=== PATIENT | female | born 1950 | race Caucasian/White ===

== ENCOUNTER 2017-10-20 21:28 | Emergency (ER) | payer OTHER ==
[~2017-10-20] VITALS: Ht 154.9 cm; Wt 108.9 kg
[~2017-10-20 21:28] MED LIST: ASPI81CT95 PO; ATOR40TA PO; CHOL500021 PO; GEMF600T5 PO; LISI10TA11 PO; METF10002 PO
[2017-10-20 21:40] VITALS: BP 127/75
[2017-10-20] MEDS ORDERED: GEMF600T5 PO (21:47)
[2017-10-20] MEDS ORDERED: VITA400T14 GT (21:47)
--- NOTE | 2017-10-20 21:51 | NUR ---
URINE COLLECTED, BS DONE. LABS ORDERED. PT RETUNRED TO LOBBY WITH SON.
[2017-10-20 22:21] LABS: APPEARANCE,URINE SL CLOUDY (CLEAR); BILIRUBIN,URINE NEGATIVE (NEGATIVE); BLOOD, URINE TRACE-I (NEGATIVE); COLOR,URINE YELLOW (YELLOW); LEUKOCYTE ESTERASE ,URINE NEGATIVE (NEGATIVE); NITRITE, URINE NEGATIVE (NEGATIVE); PH,URINE 6.5 (5.0-9.0); UGLUCOSE NEGATIVE (NEGATIVE)
[2017-10-20 22:22] LABS: BASOPHILS % (AUTO) 0.6 % (0.0-2.0); EOSINOPHILS # (AUTO) 0.2 K/uL (0-0.4); EOSINOPHILS % (AUTO) 3.8 % (0.0-4.0); HEMATOCRIT 33.6 % (36-48); HEMOGLOBIN 11.2 g/dL (12.0-16.0); LYMPHOCYTES # (AUTO) 1.9 K/uL (2.5-16.5); LYMPHOCYTES % (AUTO) 30.2 % (20.5-51.1); MEAN CORPUSCULAR HEMOGLOBIN 31 pg (27-31); MEAN CORPUSCULAR HGB CONC 33 g/dL (33-37); MEAN CORPUSCULAR VOLUME 93.2 fL (80-94); MONOCYTES # (AUTO) 0.4 K/uL (0.8-1.0); MONOCYTES % (AUTO) 6.9 % (1.7-9.3); NEUTROPHILS # (AUTO) 3.6 K/uL (1.8-7.7); NEUTROPHILS % (AUTO) 58.5 % (42.2-75.2); PLATELET COUNT (AUTO) 261 K/uL (140-450); RED BLOOD CELL COUNT(AUTO) 3.61 MIL/uL (4.20-5.40); RED CELL DISTRIBUTION WIDTH 13.3 % (11.6-13.7); WHITE BLOOD COUNT (AUTO) 6.2 K/uL (4.8-10.8)
[2017-10-20 22:31] LABS: ANION GAP 12.4 (8-16); CARBON DIOXIDE 26.5 mmol/L (21-32); CREATININE 0.7 mg/dL (0.6-1.3); POTASSIUM 3.9 mmol/L (3.5-5.1)
[2017-10-20 22:37] LABS: TOTAL BILIRUBIN 0.2 mg/dL (0.0-1.0)
[2017-10-20 22:43] LABS: RBC,URINE 3-10 (FEW) /HPF (0-5); WBC,URINE 0-5 (RARE) /HPF (0-5)
--- NOTE | 2017-10-20 22:50 | NUR ---
67/F BIB SON FOR DIARRHEA X 5 DAYS. ABD SOFT, ROUND, -TENDERNESS, BS ACTIVE X4. DENIES N/V, FEVER/CHILLS, ABD PAIN. DENIES HEMATURIA/DYSURIA. PMH: HTN, HLD, DM, CVA WITH LEFT SIDE DEFICITS
--- NOTE | 2017-10-20 22:50 | NUR ---
PT WHEELCHAIR ASSISTED TO BED 7
[2017-10-20 23:48] VITALS: BP 125/68
--- NOTE | 2017-10-20 23:48 | NUR ---
Patient discharged with v/s stable. Written and verbal after care instructions given and explained. Patient alert, oriented and verbalized understanding of instructions. Wheel Chair Assisted with by caregiver. All questions addressed prior to discharge. ID band removed. Patient advised to follow up with PMD. Rx of IMMODIUM given. Patient educated on indication of medication including possible reaction and side effects. Opportunity to ask questions provided and answered.
== END 2017-10-20 23:48 | disposition home or self-care (01) ==
LOC: MED 21:28
DX: R19.7 Diarrhea, unspecified (principal); E11.9 Type 2 diabetes mellitus without complications; I10 Essential (primary) hypertension; Z79.899 Other long term (current) drug therapy; Z88.5 Allergy status to narcotic agent
CPT/HCPCS: 36415; 80053; 81001; 85025; 99284

== ENCOUNTER 2017-12-09 09:09 | Emergency (ER) | payer OTHER ==
[~2017-12-09] VITALS: Ht 167.6 cm; Wt 113.4 kg
[~2017-12-09 09:09] MED LIST changes: -ATOR40TA PO; +VITA400T14 GT
[2017-12-09 09:18] VITALS: BP 131/69
[2017-12-09] MEDS ORDERED: hydrOXYzine HCL 25 MG TAB PO ONE (09:45)
[2017-12-09] MEDS ORDERED: FAMOTIDINE 20 MG TAB PO ONE (09:45)
[2017-12-09] MEDS ORDERED: LOPERAMIDE 2 MG CAP PO ONE (09:45)
[2017-12-09 10:14] VITALS: BP 131/69
[2017-12-10] MEDS ORDERED: ATOR40TA PO (15:20)
== END 2017-12-09 10:14 | disposition home or self-care (01) ==
LOC: MED 09:09
DX: B34.9 Viral infection, unspecified (principal); K52.29 Other allergic and dietetic gastroenteritis and colitis; I10 Essential (primary) hypertension; E78.5 Hyperlipidemia, unspecified; Z86.73 Personal history of transient ischemic attack (TIA), and cerebral infarction without residual deficits; Z79.899 Other long term (current) drug therapy; Z88.5 Allergy status to narcotic agent
CPT/HCPCS: 82948; 99284

== ENCOUNTER 2017-12-10 06:03 | Inpatient (IN) | payer OTHER ==
[~2017-12-10] VITALS: Ht 157.5 cm; Wt 104.3 kg
[~2017-12-10 06:03] MED LIST changes: -METF10002 PO; +METF10004 PO
[2017-12-10 06:07] VITALS: BP 103/64
--- NOTE | 2017-12-10 06:07 | NUR ---
to bed # 6 via wheelchair
--- NOTE | 2017-12-10 06:15 | NUR ---
PT CAME IN WITH GENERALIZED WEAKNESS. PT HAS A HX OF HEMIPALEGIA. FAMILY STATED THAT THEY FEEL THAT SHE IS NOT HERSELF. FAMILY FEELS THAT SHE HAS BECOME INCREASINGLY WEAK AND SLIGHTLY DELAYED AND NOT RESPONDING SHE NORMALLY IT. FAMILY STATES THAT SHE HAS BLISTERS ALL OVER BODY. IT STARTED ON HER BUTT. PT FAMILY STATES THEY ARE BLISTER LIKE RASH. PT IS ON O2 2L . PT HAS ALLERGIES TO CODEINE. FAMILY AT BEDSIDE.; SKIN IS SLIGHTLY CLAMMY; AAOX4 WITH EVEN AND STEADY GAIT; LUNGS CLEAR BL; HR EVEN AND REGULAR; PT DENIES ANY FEVER, CP, SOB, OR COUGH AT THIS TIME; VSS; PATIENT POSITIONED FOR COMFORT; HOB ELEVATED; BEDRAILS UP X2; BED DOWN. ER MD MADE AWARE OF PT STATUS.
--- NOTE | 2017-12-10 06:33 | NUR ---
Dr. Deng evaluating patient at bedside.
--- NOTE | 2017-12-10 07:18 | NUR ---
Dr. Brantley evaluating patient at bedside.
[2017-12-10] MEDS ORDERED: NACL 0.9% 500 ML IV ONE ×2 (07:30→09:35)
--- NOTE | 2017-12-10 07:35 | NUR ---
received report at this time from lopez alejandra. pt lying on [facility] at this time w/ vss and rr even and unlabored. will continue to monitor.
--- NOTE | 2017-12-10 07:50 | NUR ---
PHLEB AT BEDSIDE AT THIS TIME.
--- NOTE | 2017-12-10 08:25 | NUR ---
PT PLACED ON BEDPAN AT THIS TIME IN AN ATTEMPT TO COLLECT URINE. ER MD PAULA AND MYSELF ABLE TO ASSESS PT BLISTERS OF THE BUTTOCKS AT THIS TIME WHICH APPEAR TO BE OPEN WOUNDS NOW. WILL CLEAN THEM WHEN PT REMOVED FROM THE BED AGUIRRE. SAFETY PRECAUTIONS IN PLACE. WILL CONTINUE TO MONITOR.
[2017-12-10 08:34] LABS: BASOPHILS % (AUTO) 1.1 % (0.0-2.0); EOSINOPHILS # (AUTO) 0.1 K/uL (0-0.4); EOSINOPHILS % (AUTO) 3.3 % (0.0-4.0); HEMATOCRIT 35.1 % (36-48); HEMOGLOBIN 11.8 g/dL (12.0-16.0); LYMPHOCYTES % (AUTO) 22.8 % (20.5-51.1); MEAN CORPUSCULAR HEMOGLOBIN 32 pg (27-31); MEAN CORPUSCULAR HGB CONC 33 g/dL (33-37); MEAN CORPUSCULAR VOLUME 94.5 fL (80-94); MONOCYTES # (AUTO) 0.4 K/uL (0.8-1.0); MONOCYTES % (AUTO) 9.7 % (1.7-9.3); NEUTROPHILS # (AUTO) 2.7 K/uL (1.8-7.7); NEUTROPHILS % (AUTO) 63.1 % (42.2-75.2); PLATELET COUNT (AUTO) 159 K/uL (140-450); RED BLOOD CELL COUNT(AUTO) 3.72 MIL/uL (4.20-5.40); RED CELL DISTRIBUTION WIDTH 14.4 % (11.6-13.7); WHITE BLOOD COUNT (AUTO) 4.3 K/uL (4.8-10.8)
[2017-12-10 08:55] LABS: ALBUMIN 2.9 g/dL (3.4-5.0); CARBON DIOXIDE 23.1 mmol/L (21-32); POTASSIUM 3.1 mmol/L (3.5-5.1)
--- NOTE | 2017-12-10 09:15 | NUR ---
PT LAYING ON HOSPITAL GURNEY AT THIS TIME. W/ VSS AND RR EVEN AND UNLABORED. SAFETY PRECAUTIONS IN PLACE, WILL CONTINUE TO MONITOR.
[2017-12-10] MEDS ORDERED: KCL 20 MEQ/WATER INJ PREMIX 100 ML IV ONE (09:35)
[2017-12-10] MEDS ORDERED: MAG SULF 2000 MG/WATER PREMIX 50 ML IV ONE (09:35)
[2017-12-10] MEDS ORDERED: ACYCLOVIR 500 MG in NACL 0.9% 100 ML IV ONE (09:55)
[2017-12-10] MEDS ORDERED: ACYCLOVIR 800 MG TAB PO SCH (09:58)
--- NOTE | 2017-12-10 10:00 | NUR ---
PT TALKING WITH HER DTR AT THIS TIME W/ VSS AND RR EVEN AND UNLABORED. SAFETY PRECAUTIONS IN PLACE. WILL CONTINUE TO MONITOR.
[2017-12-10] MEDS ORDERED: DOCUSATE SODIUM 100 MG GELCAP PO PRN (10:25)
[2017-12-10] MEDS ORDERED: ONDANSETRON 4 MG/2 ML VIAL IM/IVP PRN (10:25)
[2017-12-10] MEDS ORDERED: ZOLPIDEM 5 MG TAB PO PRN (10:25)
[2017-12-10] MEDS ORDERED: LORazepam 2 MG/ML VIAL IM/IVP PRN (10:25)
[2017-12-10 10:35] LABS: APPEARANCE,URINE CLEAR (CLEAR); BILIRUBIN,URINE NEGATIVE (NEGATIVE); BLOOD, URINE 2+ (NEGATIVE); COLOR,URINE YELLOW (YELLOW); LEUKOCYTE ESTERASE ,URINE 2+ (NEGATIVE); NITRITE, URINE NEGATIVE (NEGATIVE); UGLUCOSE NEGATIVE (NEGATIVE)
[2017-12-10 10:42] LABS: RBC,URINE 20-50 /HPF (0-5); WBC,URINE 60-80 /HPF (0-5)
--- NOTE | 2017-12-10 10:50 | NUR ---
MEDICAL STUDENTS AT THE BEDSIDE ASSESSING PT AT THIS TIME.
[2017-12-10 11:02] LABS: PROTHROMBIN TIME 11.1 secs (10.8-13.4)
[2017-12-10 11:05] LABS: BARBITURATE, URINE NEG. ng/ml (NEG <=200); BENZODIAZEPINE, URINE NEG. ng/mL (NEG <=200); CANNABINOID, URINE NEG. ng/mL (NEG <=50); COCAINE, URINE NEG. ng/mL (NEG <=300); OPIATE, URINE NEG. ng/mL (NEG <=2000); PHENCYCLIDINE SCREEN,URINE NEG. ng/mL (NEG <=25)
[2017-12-10 11:10] LABS: CHOL/HDL RATIO 2.7 (1-4.5); MAGNESIUM 1.6 mg/dL (1.8-2.4)
[2017-12-10 11:30] VITALS: BP 92/51
--- NOTE | 2017-12-10 11:30 | NUR ---
PATIENT ARRIVED ON FLOOR VIA GURNEY, PATIENT TRANSFERRED TO BED. REPORT RECEIVED FROM SOLID SURFACE FABRICATOR KIMI AT BEDSIDE FOR CONTINUITY OF CARE. PATIENT AOX4, RESPIRATIONS EVEN AND UNLABORED ON 2L O2 VIA NC. PATIENT O2 SATURATION AT 97%. PATIENT DENIES PAIN. IV SITE PATENT, INFUSION MAG RIDER. PATIENT TOLERATED IT WELL. PT DX WITH SACRAL WOUND INFECTION, PICTURE TAKEN IN ER IN CHART. LUNG SOUNDS CLEAR, ACTIVE BOWEL SOUNDS PRESENT, PATIENT HAS LEFT SIDED HEMIPARESIS. UPDATED BOARD. SAFETY PRECAUTION IN PLACE, CALL LIGHT WITHIN REACH, WILL CONTINUE TO MONITOR PATIENT.
--- NOTE | 2017-12-10 11:30 | NUR ---
Note clark in ED - 12/10/17 at 1141 by KULDEEP Patient will be admitted to care of [facility]. Admited to Tele. Will go to room 107 A. [facility] Report to STEPHANIE Yan.
--- NOTE | 2017-12-10 11:30 | NUR ---
Dicharge/disposition accidentally charted under Vesta Lopez RN, but it was done by me. Correction made, ronaldo Lopez notified of error.
--- NOTE | 2017-12-10 11:30 | NUR ---
Patient will be admitted to care of [facility]. Admited to Tele. Will go to room 107 A. Belongings list completed. Report to STEPHANIE Yan.
[2017-12-10] MEDS: NACL 0.9% 1,000 ML IV SCH (12:14)
--- NOTE | 2017-12-10 12:26 | NUR ---
KRIDER AND NS INFUSING ORDERED. PATIENT TOLERATING IT WELL. NO SIGNS OF DISTRESS OR SOB NOTED. WILL CONTINUE TO MONITOR PATIENT.
[2017-12-10] MEDS ORDERED: DEXTROSE 50% 50 ML SYR IVP PRN (13:00)
[2017-12-10] MEDS ORDERED: INSULIN LISPRO SLIDING SCALE 100 UNITS/ML VIAL SUBQ PRN (13:00)
--- NOTE | 2017-12-10 13:10 | NUR ---
DR VALDERRAMA IN TO ASSESS THE PATIENT. WILL WAIT FOR HER UPDATED ORDERS.
[2017-12-10] MEDS ORDERED: ATOR40TA PO (15:20)
[2017-12-10] MEDS ORDERED: CHOLECALCIFEROL 1.25 MG PO SCH (15:25)
[2017-12-10 16:00] VITALS: BP 118/69
--- NOTE | 2017-12-10 16:10 | NUR ---
PATIENT MOVED FROM ROOM 107A TO 118. SON AT BEDSIDE. PATIENT TOLERATED THE MOVE WELL. ALL HER BELONGINGS WERE TAKEN TO 118. WILL CONTINUE TO MONITOR PATIENT.
[2017-12-10] MEDS ORDERED: HYDRAGUARD CREAM TP PRN (16:40)
[2017-12-10] MEDS ORDERED: NYSTATIN POW 100 MU/GM 15 GM BTL TP PRN (16:40)
[2017-12-10] MEDS: BLOOD GLUCOSE MONITORING 1 DEV DEV FS SCH ×2 (17:25→20:29)
--- NOTE | 2017-12-10 17:25 | NUR ---
BLOOD SUGAR 104, NO COVERAGE NEEDED. ORDERED MEDICATIONS GIVEN. PATIENT TOLERATED IT WELL. DR. VALDERRAMA IN TO SEE THE PATIENT. PICTURE OF PERINEAL WOUND TAKEN. PATIENT NOW SITTING UP IN BED EATING DINNER, SON AT BEDSIDE. SAFETY PRECAUTION IN PLACE, CALL LIGHT WITHIN REACH, WILL CONTINUE TO MONITOR PATIENT.
[2017-12-10] MEDS ORDERED: ZINC SULF 220 MG CAP PO SCH (17:30)
[2017-12-10] MEDS: metFORMIN 500 MG TAB PO SCH (18:07)
--- NOTE | 2017-12-10 19:15 | NUR ---
REPORT GIVEN TO TOOL DESIGN CHECKER NURSE AT BEDSIDE FOR CONTINUITY OF CARE. PATIENT IN STABLE CONDITION.
--- NOTE | 2017-12-10 19:16 | NUR ---
REPORT RECEIVED FROM AM NURSE AT BEDSIDE. PT IN STABLE CONDITION. AAOX3. INTRODUCED SELF AND BOARD UPDATED. IV SITE PATENT AND INTACT. SKIN WARM, DRY, AND NOT INTACT DUE TO EXCORIATION AND RASH. PT IS HAS A MODIFIED DNR. PT IS BEDBOUND. BED LOCKED AND IN LOW POSITION. CALL QUEZADA WITHIN REACH. WILL CONTINUE TO MONITOR.
[2017-12-10 20:00] VITALS: BP 104/54
[2017-12-10] MEDS: NACL 0.9% IV SCH (20:29)
[2017-12-10] MEDS: ACYCLOVIR IV SCH (20:29)
--- NOTE | 2017-12-10 20:30 | NUR ---
ACYCLOVIR GIVEN IVPB. PT TOLERATING WELL. Addendum: 12/11/17 at 0647 by Yonny Ruiz RN BS 110. NO COVERAGE NEEDED.
[2017-12-10] MEDS ORDERED: GEMFIBROZIL 600 MG TAB PO SCH (21:00)
[2017-12-10] MEDS ORDERED: METFORMIN HCL PO SCH (21:00)
[2017-12-10] MEDS: KCL 20 MEQ/WATER INJ PREMIX 100 ML IV SCH ×2 (21:58→23:17)
--- NOTE | 2017-12-10 21:58 | NUR ---
POTASSIUM 3.1. K RIDER GIVEN 1 OUT OF 2. PT TOLERATING WELL.
--- NOTE | 2017-12-10 23:17 | NUR ---
POTASSIUM BAG 2 OUT OF 2 GIVEN. PT TOLERATED WELL.
[2017-12-11] VITALS: BP 115/54
[2017-12-11] MEDS: NYSTATIN POW 100 MU/GM 15 GM BTL TP SCH ×2 (01:00→12:57)
[2017-12-11] MEDS: HYDRAGUARD CREAM TP SCH ×2 (01:00→12:56)
--- NOTE | 2017-12-11 01:45 | NUR ---
WOUND CARE GIVEN. NYSTATIN POWDER AND ZGUARD APPLIED.
[2017-12-11 04:00] VITALS: BP_SYST 113; BP_SYST 97; BP_DIAS 41; BP_DIAS 54
[2017-12-11] MEDS: NACL 0.9% IV SCH ×3 (04:40→19:41)
[2017-12-11] MEDS: ACYCLOVIR IV SCH ×3 (04:40→19:41)
--- NOTE | 2017-12-11 04:40 | NUR ---
ACYCLOVIR IVPB GIVEN. PT TOLERATED WELL.
[2017-12-11] MEDS: BLOOD GLUCOSE MONITORING 1 DEV DEV FS SCH ×4 (05:48→20:05)
--- NOTE | 2017-12-11 05:48 | NUR ---
BS 94. NO COVERAGE NEEDED.
[2017-12-11 06:43] LABS: BASOPHILS % (AUTO) 0.8 % (0.0-2.0); EOSINOPHILS # (AUTO) 0.1 K/uL (0-0.4); EOSINOPHILS % (AUTO) 2.4 % (0.0-4.0); HEMATOCRIT 30.7 % (36-48); HEMOGLOBIN 10.2 g/dL (12.0-16.0); LYMPHOCYTES # (AUTO) 1.2 K/uL (2.5-16.5); LYMPHOCYTES % (AUTO) 28.3 % (20.5-51.1); MEAN CORPUSCULAR HEMOGLOBIN 32 pg (27-31); MEAN CORPUSCULAR HGB CONC 33 g/dL (33-37); MEAN CORPUSCULAR VOLUME 94.9 fL (80-94); MONOCYTES # (AUTO) 0.5 K/uL (0.8-1.0); MONOCYTES % (AUTO) 11.1 % (1.7-9.3); NEUTROPHILS # (AUTO) 2.5 K/uL (1.8-7.7); NEUTROPHILS % (AUTO) 57.4 % (42.2-75.2); PLATELET COUNT (AUTO) 150 K/uL (140-450); RED BLOOD CELL COUNT(AUTO) 3.24 MIL/uL (4.20-5.40); RED CELL DISTRIBUTION WIDTH 14.1 % (11.6-13.7); WHITE BLOOD COUNT (AUTO) 4.4 K/uL (4.8-10.8)
--- NOTE | 2017-12-11 07:15 | NUR ---
REPORT GIVEN TO AM NURSE AT BEDSIDE. PT IN STABLE CONDITION.
--- NOTE | 2017-12-11 07:16 | NUR ---
RECEIVED REPORT FROM THE JANITORIAL TECH NURSE AT BEDSIDE FOR CONTINUITY OF CARE. PT IS AWAKE AND ORIENTED. INTRODUCED MYSELF AND UPDATED THE BOARD. WOULD LIKE TO SPEAK TO HER DAUGHTER. CALLED HER DAUGHTER FOR HER ON PT'S PHONE. PT SPEAKS COMORAN, MUMBLES. HARD TO MAKE OUT WHAT SHE IS SAYING. PT IS BEDREST, INCONTINENT, NC AT 2L O2. SKIN-VESICLES, RASHES ON ABDOMEN AND EXTREMITIES AND SACRAL WOUND. EXTREME DRYNESS ON BFOOT. IV ON L AC 20G NS AT 60ML. V/S WITHIN NORMAL LIMITS. BP SLIGHTLY LOW 88/55, ST 114. DENIES ANY ITCHINESS OR PAIN ASSOC WITH RASH. DR ROWLEY IS ON THE CASE. WILL CONTINUE TO MONITOR PT.
[2017-12-11 08:00] VITALS: BP 88/55
[2017-12-11] MEDS ORDERED: LISINOPRIL 10 MG PO SCH (09:00)
[2017-12-11] MEDS ORDERED: ASPIRIN 1 MG PO SCH (09:00)
[2017-12-11] MEDS: LISINOPRIL 10 MG TAB PO SCH (09:00)
[2017-12-11] MEDS: LORATADINE 10 MG TAB PO SCH (09:08)
[2017-12-11] MEDS: ZINC SULF 220 MG CAP PO SCH (09:09)
[2017-12-11] MEDS: ASPIRIN 81 MG TAB.CHEW PO SCH (09:09)
[2017-12-11] MEDS: LACTOBACILLUS RHAMNOSUS GG 1 EACH CAP PO SCH (09:09)
[2017-12-11] MEDS: VITAMIN D 400 IU TAB GT SCH (09:09)
[2017-12-11] MEDS: ATORVASTATIN 20 MG TAB PO SCH (09:09)
[2017-12-11] MEDS: NACL 0.9% 1,000 ML IV SCH ×2 (09:10→19:41)
[2017-12-11] MEDS: metFORMIN 500 MG TAB PO SCH ×2 (09:10→17:54)
--- NOTE | 2017-12-11 09:15 | NUR ---
ADMINISTERED MORNING MEDS. HELD BP MED D/T DECREASE BP. PT TOLERATED WELL. WILL CONTINUE TO MONITOR PT.
[2017-12-11 10:19] LABS: ANION GAP 15.7 (8-16); CARBON DIOXIDE 21.8 mmol/L (21-32); CREATININE 0.9 mg/dL (0.6-1.3); POTASSIUM 3.5 mmol/L (3.5-5.1)
--- NOTE | 2017-12-11 10:55 | NUR ---
PATIENT HAS BEEN SCREENED AND CATEGORIZED HIGH NUTRITION RISK. PATIENT WILL BE SEEN WITHIN 1-2 DAYS OF ADMISSION. 12/11/17 12/12/[address]
[2017-12-11] MEDS: PIPER/TAZO 3.375GM/D5W PREMIX 50 ML IV SCH ×2 (11:52→17:55)
--- NOTE | 2017-12-11 11:55 | NUR ---
ADMINISTERED SCHEDULED MEDS. PT TOLERATED WELL. FAMILY AT BEDSIDE. REQUESTED UPDATES. LUNCH IS HERE BUT PT FELL ASLEEP. FAMILY WILL BE WITH PT UNTIL SHE WAKES UP FOR LUNCH. WILL CONTINUE TO MONITOR PT.
[2017-12-11 12:00] VITALS: BP 89/51
--- NOTE | 2017-12-11 13:58 | NUR ---
PT SLEEPING SOUNDLY. ACYCLOVIR IVPB STILL RUNNING. WILL CONTINUE TO MONITOR PT.
--- NOTE | 2017-12-11 15:00 | NUR ---
COCOA BEAN ROASTER CHANGING PT. HAD BM. CHANGED PT AND HAD ANOTHER BM. ALL LIQUID. PT IS NOW CLEAN AND DRY. WILL CONTINUE TO MONITOR PT.
[2017-12-11 16:00] VITALS: BP 92/58
--- NOTE | 2017-12-11 17:12 | NUR ---
SON IS VISITING. PT WAS CONFUSED ABOUT WHEN SHE GOT ADMITTED AND REGARDING DAUGHTER'S VISIT. REORIENTED PT. WILL CONTINUE TO MONITOR PT.
--- NOTE | 2017-12-11 17:56 | NUR ---
IV INFILTRATED. RESTART A NEW IV ACCESS. AFTER 3 ATTEMPTS, NEW IV ON L HAND 22G. STARTED TO ZOSYN. PT EATING DINNER. FAMILY AT BEDSIDE. WILL CONTINUE TO MONITOR PT.
--- NOTE | 2017-12-11 19:10 | NUR ---
ENDORSED PT TO THE HOME SERVICE CONSULTANT NURSE AT BEDSIDE FOR CONTINUITY OF CARE. PT IS IN STABLE CONDITION.
--- NOTE | 2017-12-11 19:15 | NUR ---
D PT IN STABLE CONDITION FROM AM NURSE. AWAKE,ALERT AND ORIENTED X4. BEDREST .WEAKNESS . ON TELE MONITOR. NO RESPIRATORY DISTRESS NOTED. WITH O22L/NC. HAS RASHES ON THE BODY .ON CONTACT ISOLATION DUE TO HERPES. FAMILY MADE AWARE OF PRECAUTIONS. IVF INFUSING WELL . BED ON LOW POSITION. FREQUENT ROUNDS NEEDED. CALL LIGHT PLACED WITHIN EASY REACH. WILL CONTINUE TO MONITOR.
[2017-12-11] MEDS ORDERED: ALBUTEROL SULFATE/IPRATROPIU 3 ML SOL IH PRN (19:30)
[2017-12-11 19:52] VITALS: BP 107/63
[2017-12-11] MEDS: ACETAMINOPHEN 325 MG TAB PO PRN (19:57)
--- NOTE | 2017-12-11 19:57 | NUR ---
PT TEMP 101.2 .COOLING MEASURES DONE AND TYLENOL 650 MG PO GIVEN. WILL CONTINUE TO MONITOR.
--- NOTE | 2017-12-11 20:05 | NUR ---
BLOOD SUGAR WAS CHECKED RESULT 118. NO INSULIN COVERAGE NEEDED.
--- NOTE | 2017-12-11 20:52 | NUR ---
XIFAXAN NEW ORDER TO START TONIGHT. NOT AVAILABLE. DR. ABBOTT MADE AWARE. WILL JUST START TOMORROW PER .
[2017-12-11] MEDS: RIFAXIMIN 550 MG TAB PO SCH (21:00)
[2017-12-11] MEDS: FAMOTIDINE 20 MG TAB PO SCH (21:02)
--- NOTE | 2017-12-11 21:02 | NUR ---
LATEST TEMP 99.9 WILL CONTINUE TO MONITOR.
[2017-12-11] MEDS ORDERED: VANCOMYCIN PER PHARMACY MC PRN (21:25)
--- NOTE | 2017-12-11 21:45 | NUR ---
DR. ROWLEY CAME AND EXAMINED PT. TRANSFERRED TO [place] [id number] FOR AIRBORNE ISOLATION DUE TO SHINGLES.
[2017-12-11] MEDS ORDERED: VANCOMYCIN 2,000 MG in NACL 0.9% 500 ML IV SCH (23:00)
[2017-12-12 00:03] VITALS: BP 104/49
[2017-12-12] MEDS ORDERED: VANCOMYCIN 1,000 MG VIAL ONE (00:09)
--- NOTE | 2017-12-12 00:17 | NUR ---
ZOSYN IV DISCONTINUED. VANCOMYCIN 2 GM IVPB X1 STARTED PER MD ORDER. WILL CONTINUE TO MONITOR WHILE INFUSING.
[2017-12-12] MEDS: HYDRAGUARD CREAM TP SCH (00:24)
[2017-12-12] MEDS: NYSTATIN POW 100 MU/GM 15 GM BTL TP SCH ×2 (00:24→14:15)
--- NOTE | 2017-12-12 02:00 | NUR ---
MADE ROUNDS. PT ASLEEP. NO S/S OF ANY DISCOMFORT NOTED. WILL CONTINUE TO MONITOR.
--- NOTE | 2017-12-12 02:08 | NUR ---
RECEIVED PT FROM DAVID BROWN PT AAOX1 ON TELE SR ON GENERALIZED RASH AND TX HERLPES DENIES ANY PAIN NOT DISTRES NOTED INITIAL ASSESSMENT DONE Addendum: 12/13/17 at 0212 by Claudine Nobles RN ;THIS ;DOCUMENTATION QWAS ON 12/12/17 AT 1938 INSTEAD 0211
[2017-12-12 03:40] VITALS: BP 96/55
[2017-12-12] MEDS: NACL 0.9% IV SCH ×3 (03:44→21:55)
[2017-12-12] MEDS: ACYCLOVIR IV SCH ×3 (03:44→21:55)
--- NOTE | 2017-12-12 04:25 | NUR ---
PERINEAL AREA/LABIA AND BUTTOCKS ARE VERY EXCORIATED DUE TO INCONTINENCE. ABLE TO TALKED TO DR. ALBA, RESIDENT MD AND MADE HER AWARE. WILL DO ORDER. .
[2017-12-12] MEDS ORDERED: Z-GUARD PASTE TP SCH ×2 (05:00→08:00)
[2017-12-12] MEDS: BLOOD GLUCOSE MONITORING 1 DEV DEV FS SCH ×4 (06:04→21:55)
--- NOTE | 2017-12-12 06:04 | NUR ---
BLOOD SUGAR WAS CHECKED RESULT 89. NO INSULIN COVERAGE.
[2017-12-12 06:18] LABS: BASOPHILS % (AUTO) 0.8 % (0.0-2.0); EOSINOPHILS # (AUTO) 0.1 K/uL (0-0.4); EOSINOPHILS % (AUTO) 2.7 % (0.0-4.0); HEMATOCRIT 29.8 % (36-48); HEMOGLOBIN 9.7 g/dL (12.0-16.0); LYMPHOCYTES # (AUTO) 1.6 K/uL (2.5-16.5); MEAN CORPUSCULAR HEMOGLOBIN 31 pg (27-31); MEAN CORPUSCULAR HGB CONC 33 g/dL (33-37); MEAN CORPUSCULAR VOLUME 95.1 fL (80-94); MONOCYTES # (AUTO) 0.6 K/uL (0.8-1.0); MONOCYTES % (AUTO) 11.2 % (1.7-9.3); NEUTROPHILS # (AUTO) 2.9 K/uL (1.8-7.7); NEUTROPHILS % (AUTO) 55.3 % (42.2-75.2); PLATELET COUNT (AUTO) 150 K/uL (140-450); RED BLOOD CELL COUNT(AUTO) 3.13 MIL/uL (4.20-5.40); RED CELL DISTRIBUTION WIDTH 13.9 % (11.6-13.7); WHITE BLOOD COUNT (AUTO) 5.2 K/uL (4.8-10.8)
[2017-12-12 06:19] LABS: FOLIC ACID 17.9 ng/mL (>3.0)
--- NOTE | 2017-12-12 06:40 | NUR ---
PT VERY SLEEPY. RECHECKED THE BLOOD SUGAR AND RESULT STILL GOOD AT 93.
--- NOTE | 2017-12-12 07:15 | NUR ---
ENDORSED PT IN STABLE CONDITION TO AM NURSE FOR CONTINUITY OF CARE.
--- NOTE | 2017-12-12 07:16 | NUR ---
RECEIVED PT FROM THE PICKLER HELPER NURSE AT BEDSIDE FOR CONTINUITY OF CARE. PT IS AWAKE AND ORIENTED. PT IS AWAKE AND ORIENTED. INTRODUCED MYSELF AND UPDATED THE BOARD. PT IS NOW ON AIRBORNE PRECAUTION D/T HERPES. V/S WITHIN NORMAL. FEVER 101.1F. DR. ROWLEY WAS HERE LAST NIGHT. D/C ZOSYN AND STARTED HER ON VANCO. IV ON L HAND 22G NS AT 60ML INFUSING AT 60ML/HR. PER PICKLER HELPER NURSE, REQUESTED ZGUARD FOR THE RASH. WILL APPLY. PT'S K AND MAG IS LOW. WILL NOTIFY .
[2017-12-12 07:27] LABS: ANION GAP 10.6 (8-16); CARBON DIOXIDE 24.4 mmol/L (21-32); CREATININE 1.1 mg/dL (0.6-1.3)
[2017-12-12 08:00] VITALS: BP_SYST 106; BP_SYST 94; BP_DIAS 55; BP_DIAS 64
[2017-12-12] MEDS: FAMOTIDINE 20 MG TAB PO SCH ×2 (08:51→21:57)
[2017-12-12] MEDS: LORATADINE 10 MG TAB PO SCH (08:52)
[2017-12-12] MEDS: VITAMIN D 400 IU TAB GT SCH (08:52)
[2017-12-12] MEDS: ASPIRIN 81 MG TAB.CHEW PO SCH (08:52)
[2017-12-12] MEDS: ATORVASTATIN 20 MG TAB PO SCH (08:52)
[2017-12-12] MEDS: ZINC SULF 220 MG CAP PO SCH (08:52)
[2017-12-12] MEDS: LISINOPRIL 10 MG TAB PO SCH (08:53)
[2017-12-12] MEDS: LACTOBACILLUS RHAMNOSUS GG 1 EACH CAP PO SCH (08:53)
[2017-12-12] MEDS: RIFAXIMIN 550 MG TAB PO SCH ×2 (08:53→21:58)
[2017-12-12] MEDS: ACETAMINOPHEN 325 MG TAB PO PRN (08:54)
[2017-12-12] MEDS ORDERED: BACITRACIN ZINC/POLYMYXIN B OINT 30 GM TUBE TP SCH (09:00)
--- NOTE | 2017-12-12 09:00 | NUR ---
ADMINISTERED MORNING MEDS. PT TOLERATED WELL. REQUESTED TO SPEAK TO SISTER. WILL CALL AND FIND OUT WHEN SHE WILL BE COMING.
--- NOTE | 2017-12-12 10:10 | NUR ---
Belle NOTES Belle CACERES COMPLETED 12/11/17; D/C FROM P.T. SERVICES; ENDORSED TO NURSING. Addendum: 12/13/17 at 1011 by Alida Valadez PT Amended: Links added.
--- NOTE | 2017-12-12 11:20 | NUR ---
RADIOLOGY HERE TO TAKE PT FOR CT OF NECK. Addendum: 12/12/17 at 1821 by Lyubov Kwon RN ACTUAL TIME 1320
[2017-12-12 12:00] VITALS: BP 94/55
--- NOTE | 2017-12-12 12:15 | NUR ---
ADMINISTERED SCHEDULED MEDS. PT TOLERATING WELL. DAUGHTER AT BEDSIDE. WILL CONTINUE TO MONITOR PT.
[2017-12-12] MEDS: NACL 0.9% 1,000 ML IV SCH (12:18)
[2017-12-12] MEDS ORDERED: MAG SULF 2000 MG/WATER PREMIX 50 ML IV ONE (13:25)
[2017-12-12] MEDS ORDERED: LOPERAMIDE 2 MG CAP PO SCH (13:30)
--- NOTE | 2017-12-12 13:49 | NUR ---
PT RETURNED BACK FROM CT. PT SLEEPING. NO SIGNS OF DISTRESS.
[2017-12-12] MEDS ORDERED: KCL 20 MEQ/WATER INJ PREMIX 100 ML IV SCH (14:00)
[2017-12-12] MEDS: MAGNESIUM SULFATE 1GM in DEXTROSE 5% 100 ML PREMIX IV SCH ×2 (14:08→16:49)
--- NOTE | 2017-12-12 14:30 | NUR ---
WOUND CARE EVALUATION NOTE: REASON FOR EVALUATION: SKIN RASHES/BLISTER SKIN ASSESSMENT DONE WITH PRIMARY RN WITH THIS 67Y/O FEMALE PT ADMITTED FROM [facility]. PT. VISITED ED FEW DAYS BACK AND WAS DISCHARGED WITH ANTIVIRAL PRESCRIPTION WITH NO IMPROVEMENT. PT IS ASLEEP, JUST COME BACK FROM CT SCAN PROCEDURE. SKIN IS WARM AND DRY, BLE NO HAIR GROWTH, BILATERAL DORSAL PEDAL PULSES PRESENT AND NORMAL. CAPILLARY REFILLED < 2 SEC. X 10 TOES. INCONTINENT OF LBM X1 DURING ASSESSMENT. PLAN OF CARE DISCUSSED WITH PRIMARY RN AND PT. INTEGUMENTARY: -MULTIPLES HERPES LIKE DRY RASHES / BLISTERS TO FACE, ANTERIOR/ POSTERIOR TRUNK, LEFT HIP TO POSTERIOR THIGH -INTERTRIGO TO ABDOMINAL FOLDS -INCONTINENT ASSOCIATE DERMATITIS (IAD) TO: B/L GROINS EXTENDED TO PERINEUM -IAD TO RIGHT AND LEFT BUTTOCKS EXTENDED TO PERIANAL MULTIPLE SMALL PARTIAL THICKNESS SKIN EROSIONS WITH WOUND BED IS PINK, CLEAN AND MOIST. NO ODOR. RECOMMENDATIONS: -KEEP SKIN DRY AND CLEAN AT ALL TIMES, PLEASE CHECK Q2H AND PRN FOR INCONTINENCY OF BOWEL AND BLADDER. -APPLY NYSTATIN POWDER TO ABDOMINAL FOLDS INTERTRIGO BID WC AND PRN IF SOILING -APPLY Z-GUARD TO: B/L GROINS EXTENDED TO PERINEUM AND RIGHT AND LEFT BUTTOCKS IAD BIDWC AND PRN IF SOILING -APPLY ANTIVIRAL TOPICAL CREAM TO RASHES/ DRY BLISTERS BIDWC -OFFLOAD BILATERAL HEELS BY PLACING PILLOWS UNDER CALVES UNLESS OTHERWISE CONTRAINDICATED -PRESSURE REDISTUBUTION SURFACE THERAPY -TURN AND REPOSITION Q2H, OFFLOAD SACRALCOCCYX BY TURNING RIGHT AND LEFT -CONTINUE TO FOLLOW RD RECOMMENDATIONS ALL ABOVE RECOMMENDATIONS DISCUSSED WITH PRIMARY RN AND WILL FOLLOW UP PT Q7-10 DAYS. PLEASE CONTACT WOUND CARE NURSE FOR ANY QUESTION AND CHANGE OF WOUND CONDITION.
[2017-12-12 16:00] VITALS: BP 113/68
--- NOTE | 2017-12-12 16:34 | NUR ---
12/12/17 RD INITIAL ASSESSMENT COMPLETED PLEASE REFER TO NUTRITION ASSESSMENT UNDER CARE ACTIVITY FOR ESTIMATED NUTRITIONAL NEEDS. 1. RECOMMEND CARDIAC, [id number] DIET TOLERATED -RD TO ADJUST PT MENU TO INCLUDE HIGHER FIBER FOODS 2. PROVIDED DM AND GENERAL NUTRITION EDUCATION HANDOUTS 4. RD TO FOLLOW-UP 3-5 DAYS, MODERATE RISK CESAR HAGEN, RD
--- NOTE | 2017-12-12 18:22 | NUR ---
PT VISITING WITH SON. EATING DINNER. PT TOLERATING WELL. WILL CONTINUE TO MONITOR PT.
[2017-12-12] MEDS ORDERED: HYDRAGUARD CREAM TP PRN (18:35)
[2017-12-12] MEDS ORDERED: NYSTATIN POW 100 MU/GM 15 GM BTL TP PRN (18:35)
[2017-12-12] MEDS: VANCOMYCIN 1GM/DEXT 5% PREMIX 200 ML IV SCH (19:06)
--- NOTE | 2017-12-12 19:35 | NUR ---
ENDORSED PT TO THE CUT PRESSMAN NURSE AT BEDSIDE FOR CONTINUITY OF CARE. PT IS SLEEPING. FAMILY JUST LEFT. PT IN STABLE CONDITION.
--- NOTE | 2017-12-12 19:38 | NUR ---
RECEIVED PT FROM KUNAL BROWN PT AAOX1 ON TELE ST PT HAS GENERALIZED RASH AND HAVE BEEN DX HERPES ALL CONTACT PRECAUTION HAVE BEEN TAKEN INITIAL ASSESSMENT DONE
[2017-12-12 20:00] VITALS: BP 97/47
[2017-12-12] MEDS ORDERED: ACYCLOVIR 500 MG VIAL IV ONE (21:52)
--- NOTE | 2017-12-12 22:00 | NUR ---
BLOOSD SUGAR TEST 107 PT REPOSITIONED Q2H NOT DISTRESS NOTED LINEN CHANGED
[2017-12-13] VITALS: BP 90/46
[2017-12-13] MEDS: NYSTATIN POW 100 MU/GM 15 GM BTL TP SCH ×2 (01:00→13:07)
--- NOTE | 2017-12-13 01:00 | NUR ---
SPONGE BATH GIVEN LINEN CHANGED NOT DISTRESS NOTED ON TELEMETRY ST PT DROWSY NOT FEVER NOTED
[2017-12-13] MEDS: ACYCLOVIR IV SCH ×3 (03:59→20:55)
[2017-12-13] MEDS: NACL 0.9% IV SCH ×3 (03:59→20:55)
[2017-12-13 04:00] VITALS: BP 106/48
--- NOTE | 2017-12-13 04:00 | NUR ---
PT HAS BEEN REPOSITIONED Q2H NOT DISTRESS NOTED PT ON TELEMETRY ST
[2017-12-13] MEDS: NACL 0.9% 1,000 ML IV SCH ×2 (05:01→20:58)
[2017-12-13] MEDS: BLOOD GLUCOSE MONITORING 1 DEV DEV FS SCH ×4 (06:24→21:00)
--- NOTE | 2017-12-13 06:27 | NUR ---
LINEN CHANGED SPONGE BATH GIVEN BLOOD SUGAR TEST 95 PT SEEM MORE ALERT THIS MORNING
--- NOTE | 2017-12-13 07:07 | NUR ---
REPORT RECEIVED FROM NIGHT RN. PT RESTING IN BED. AAOX2, LETHARGIC. NO S/S OF ACUTE DISTRESS. PT DENIES PAIN. IV DISCONTINUE TO LEFT HAND DUE TO INFILTRATION. IV TO RIGHT FOREARM INFUSING. RASH NOTED THROUGHOUT BODY. CALL LIGHT WITHIN REACH. SAFETY MEASURES ENSURED. WILL CONTINUE TO MONITOR.
[2017-12-13 08:00] VITALS: BP 104/67
[2017-12-13] MEDS ORDERED: FERROUS SULFATE 325 MG TABEC PO SCH ×2 (08:00)
[2017-12-13] MEDS: ZINC SULF 220 MG CAP PO SCH (08:31)
[2017-12-13] MEDS: VITAMIN D 400 IU TAB GT SCH (08:31)
[2017-12-13] MEDS: LACTOBACILLUS RHAMNOSUS GG 1 EACH CAP PO SCH (08:31)
[2017-12-13] MEDS: ATORVASTATIN 20 MG TAB PO SCH (08:32)
[2017-12-13] MEDS: LORATADINE 10 MG TAB PO SCH (08:32)
[2017-12-13] MEDS: FAMOTIDINE 20 MG TAB PO SCH (08:32)
[2017-12-13] MEDS: ASPIRIN 81 MG TAB.CHEW PO SCH (08:32)
[2017-12-13] MEDS: METOPROLOL 25 MG TAB PO SCH (08:33)
[2017-12-13] MEDS: LISINOPRIL 10 MG TAB PO SCH (08:33)
[2017-12-13] MEDS: RIFAXIMIN 550 MG TAB PO SCH (08:34)
[2017-12-13] MEDS ORDERED: MAG SULF 2000 MG/WATER PREMIX 50 ML IV ONE (09:20)
--- NOTE | 2017-12-13 09:45 | NUR ---
PT'S DAUGHTER STATES PATIENT IS MORE LETHARGIC AND WEAK ON THE RIGHT SIDE. ALSO SHE IS HAVING DIFFICULTY SWALLOWING JUICE. DR. DAVIS MADE AWARE.
[2017-12-13 10:19] LABS: BASOPHILS % (AUTO) 0.6 % (0.0-2.0); EOSINOPHILS # (AUTO) 0.1 K/uL (0-0.4); EOSINOPHILS % (AUTO) 2.7 % (0.0-4.0); HEMATOCRIT 32.5 % (36-48); HEMOGLOBIN 10.6 g/dL (12.0-16.0); LYMPHOCYTES # (AUTO) 1.4 K/uL (2.5-16.5); LYMPHOCYTES % (AUTO) 24.9 % (20.5-51.1); MEAN CORPUSCULAR HEMOGLOBIN 31 pg (27-31); MEAN CORPUSCULAR HGB CONC 33 g/dL (33-37); MEAN CORPUSCULAR VOLUME 94.7 fL (80-94); MONOCYTES # (AUTO) 0.4 K/uL (0.8-1.0); MONOCYTES % (AUTO) 7.7 % (1.7-9.3); NEUTROPHILS # (AUTO) 3.5 K/uL (1.8-7.7); NEUTROPHILS % (AUTO) 64.1 % (42.2-75.2); PLATELET COUNT (AUTO) 150 K/uL (140-450); RED BLOOD CELL COUNT(AUTO) 3.43 MIL/uL (4.20-5.40); RED CELL DISTRIBUTION WIDTH 14.2 % (11.6-13.7); WHITE BLOOD COUNT (AUTO) 5.5 K/uL (4.8-10.8)
[2017-12-13 11:08] LABS: ANION GAP 11.6 (8-16); CARBON DIOXIDE 23.5 mmol/L (21-32); CREATININE 0.9 mg/dL (0.6-1.3); POTASSIUM 3.1 mmol/L (3.5-5.1)
[2017-12-13 11:26] LABS: MAGNESIUM 1.9 mg/dL (1.8-2.4); PHOSPHORUS 2.7 mg/dL (2.5-4.9)
[2017-12-13 12:00] VITALS: BP 102/63
[2017-12-13] MEDS ORDERED: KCL 20 MEQ/WATER INJ PREMIX 100 ML IV SCH ×2 (12:00→17:00)
[2017-12-13] MEDS: MAGNESIUM SULFATE 1GM in DEXTROSE 5% 100 ML PREMIX IV SCH ×2 (12:00→13:00)
--- NOTE | 2017-12-13 12:44 | NUR ---
FACILITIES LOCATOR note (attempted bedside swallow evaluation) 12:10-12:45. FACILITIES LOCATOR came to attempt to provide bedside swallow evaluation per Dr. Spenser Torrez's order; however, pt unable to awaken at this time (despite multiple calling of her name by pt's son at bedside, ice cold cloth to pt's face and neck, sitting pt fully upright in bed, tactile cues by FACILITIES LOCATOR). Pt's status is inadequate to safely participate with bedside swallow evaluation at this time due to pt being obtunded. FACILITIES LOCATOR d/w pt's son who expressed agreement and understanding at this time. Recommend: 1) strict NPO (oral cares only) until pt able to achieve/maintain adequate alertness again 2) consider alternative method(s) of nutrition/hydration/medication vs comfort measures, as appropriate 3) FACILITIES LOCATOR will reattempt bedside swallow evaluation on 12/14/2017 as pt able to participate safely, as appropriate PVE: FACILITIES LOCATOR d/w RN David) prior to and following bedside swallow evaluation attempt.
--- NOTE | 2017-12-13 12:44 | NUR ---
PT DIFFICULT TO AROUSE AT THIS TIME. DR. DAVIS AND BLANCA MADE AWARE. NO S/S OF ACUTE DISTRESS. PT MORE AROUSABLE ONCE SEEN BY DR. DAVIS. PT STILL APPEARS CONFUSED AT THIS TIME BUT WILL FOLLOW COMMANDS.
--- NOTE | 2017-12-13 14:15 | NUR ---
PER DR. RYAN CISSE
[2017-12-13] MEDS: metroNIDAZOLE 500 MG TAB PO SCH ×3 (15:00→22:24)
[2017-12-13] MEDS: VANCOMYCIN 1GM/DEXT 5% PREMIX 200 ML IV SCH (15:20)
--- NOTE | 2017-12-13 15:21 | NUR ---
PT TOO DROWSY TO SAFELY GIVE MEDS ORALLY AT THIS TIME
[2017-12-13 16:00] VITALS: BP 99/60
--- NOTE | 2017-12-13 17:05 | NUR ---
PT OFF UNIT TO CT
--- NOTE | 2017-12-13 18:52 | NUR ---
CAROL/RN AT BEDSIDE FOR MEDS ALONG WITH TOOL SETTER APPRENTICE'S FOR PATIENT PHYSICAL HYGIENE AND REPOSITION PATIENT LOC AWAKE AND ALERT WITH PULMONARY DISTRESS NOTED SUPPLEMENTAL OXYGEN AT 3 LPM VIA NC ON AND FUNCTIONING WELL OSTOMY RN TO ATTEMPT BIPAP PLACEMENT AT A LATER TIME Addendum: 12/13/17 at 2105 by Giuseppe Huizar RT ACTUAL TIME 2051
--- NOTE | 2017-12-13 19:21 | NUR ---
ENDORSED PLAN OF CARE TO NIGHT RN.
--- NOTE | 2017-12-13 19:25 | NUR ---
RECEIVED PT FROM HERMAN RN PT AAOX2 FOLLOW COMMANDS IV ON RT FA INFUSING WELL ON TELEMETRY ST ON ;02 2 LTS VIA NC NOT SOB NOTED RT ARM WEAK REPOSITIONED INITIAL ASSESSMENT DONE.
[2017-12-13] MEDS: ALBUTEROL SULFATE/IPRATROPIU 3 ML SOL IH SCH (19:58)
[2017-12-13 20:00] VITALS: BP 139/73
--- NOTE | 2017-12-13 21:40 | NUR ---
PT SPONGE BATH GIVEN LINEN CHANGED REPOSITIONED DR ROWLEY IS HERE AND SEE THE PT HE HASK TO RAISE HER RT HAND AND PT DID IT BLOOD SUGAR TEST 98
[2017-12-14] VITALS: BP 109/66
--- NOTE | 2017-12-14 | NUR ---
PT SR ON TELEMETRYON BIPAP NOT SOB NOTED SLEEEPING WELL WE WILL CONTINUE MONITORING
[2017-12-14] MEDS: NYSTATIN POW 100 MU/GM 15 GM BTL TP SCH ×2 (01:00→13:00)
[2017-12-14 04:00] VITALS: BP 103/55
--- NOTE | 2017-12-14 04:00 | NUR ---
SPONGE BATH GIVEN LINEN CHANGED PT ON BIPAP PT HAD ONE BM LIQUID UNABLE TO COLLECT STOOL
[2017-12-14] MEDS: NACL 0.9% IV SCH ×3 (04:22→20:15)
[2017-12-14] MEDS: ACYCLOVIR IV SCH ×3 (04:22→20:15)
[2017-12-14] MEDS: metroNIDAZOLE 500 MG TAB PO SCH ×3 (05:15→20:25)
[2017-12-14 06:22] LABS: BASOPHILS % (AUTO) 0.7 % (0.0-2.0); EOSINOPHILS # (AUTO) 0.3 K/uL (0-0.4); EOSINOPHILS % (AUTO) 4.9 % (0.0-4.0); HEMATOCRIT 29.7 % (36-48); HEMOGLOBIN 9.9 g/dL (12.0-16.0); LYMPHOCYTES # (AUTO) 1.3 K/uL (2.5-16.5); LYMPHOCYTES % (AUTO) 22.2 % (20.5-51.1); MEAN CORPUSCULAR HEMOGLOBIN 32 pg (27-31); MEAN CORPUSCULAR HGB CONC 33 g/dL (33-37); MEAN CORPUSCULAR VOLUME 94.9 fL (80-94); MONOCYTES # (AUTO) 0.5 K/uL (0.8-1.0); NEUTROPHILS # (AUTO) 3.8 K/uL (1.8-7.7); NEUTROPHILS % (AUTO) 64.2 % (42.2-75.2); PLATELET COUNT (AUTO) 193 K/uL (140-450); RED BLOOD CELL COUNT(AUTO) 3.13 MIL/uL (4.20-5.40)
[2017-12-14] MEDS: BLOOD GLUCOSE MONITORING 1 DEV DEV FS SCH ×4 (06:51→20:31)
--- NOTE | 2017-12-14 06:53 | NUR ---
PT ON BIPAP SLEEPIND NOT SIGN OF DISTRESS NOTED RT IS HERE AND ASSIST PT BLOOD SUGAR TEST 101
[2017-12-14] MEDS: ALBUTEROL SULFATE/IPRATROPIU 3 ML SOL IH SCH ×3 (06:55→18:57)
--- NOTE | 2017-12-14 07:00 | NUR ---
RECIVED PT ON BIPAP WITH SETTINGS CHARTED BREATH SOUNDS PRESENT BILAT DIMINISHED PT RESTING COMFORTABLY LIVIA BIPAP WELL WILL CONTINUE TO MONITOR PT ON BIPAP
[2017-12-14 07:04] LABS: MAGNESIUM 1.7 mg/dL (1.8-2.4); PHOSPHORUS 2.8 mg/dL (2.5-4.9)
--- NOTE | 2017-12-14 07:20 | NUR ---
RECEIVED PT FROM AVIATION SURVIVAL TECHNICIAN NURSE CAROL, WILL GIVE DUE VANCO ONCE TROUGH IS DETERMINED, PT ON BIPAP, NEED TO BE SHAKEN TO AWAKEN, SKIN VISIBLY SHOWS SCABS THROUGHOUT BODY, IV IN LEFT HAND 22 G INTACT, PT DOES NOT OPEN EYES TO NAME, WILL CONTINUE TO MONITOR, CALL LIGHT WITHIN REACH.
--- NOTE | 2017-12-14 07:29 | NUR ---
VANCOMYCIN TROUGH REPORTED TO BE 19.8. WILL GIVE VANCOMYCIN ACCORDING TO DRS ORDER.
[2017-12-14] MEDS: VANCOMYCIN 1GM/DEXT 5% PREMIX 200 ML IV SCH (07:44)
[2017-12-14 08:00] VITALS: BP 111/64
--- NOTE | 2017-12-14 08:56 | NUR ---
INCREASED IPAP TO 12 INCREASED RR TO [address] DAVIS POST ABG
[2017-12-14] MEDS: ZINC SULF 220 MG CAP PO SCH (09:47)
[2017-12-14] MEDS: ATORVASTATIN 20 MG TAB PO SCH (09:48)
[2017-12-14] MEDS: METOPROLOL 25 MG TAB PO SCH (09:48)
[2017-12-14] MEDS: VITAMIN D 400 IU TAB GT SCH (09:48)
[2017-12-14] MEDS: ASPIRIN 81 MG TAB.CHEW PO SCH (09:49)
[2017-12-14] MEDS: LACTOBACILLUS RHAMNOSUS GG 1 EACH CAP PO SCH (09:49)
[2017-12-14] MEDS: LORATADINE 10 MG TAB PO SCH (09:49)
[2017-12-14] MEDS: LISINOPRIL 10 MG TAB PO SCH (09:49)
--- NOTE | 2017-12-14 10:00 | NUR ---
DUE MEDICATIONS GIVEN, CRUSHED AND PLACED IN APPLESAUCE PT TOOK TIME TO SWALLOW MEDICATIONS, CHEWED VERY SLOWLY. WILL KEEP HOB AT 45 DEGREES.
--- NOTE | 2017-12-14 11:11 | NUR ---
CALLED FAMILY TO RECEIVE VERBAL CONSENT FOR US GUIDED NEEDLE BX. NO ANSWER, LEFT MESSAGE TO PLEASE CALL BACK. CALLED LIZBETH FROM RADIOLOGY.
--- NOTE | 2017-12-14 11:28 | NUR ---
TRANSLATOR AND INTERPRETER note (reattempted bedside swallow evaluation) 11:25. TRANSLATOR AND INTERPRETER came to re-attempt to provide bedside swallow evaluation per Dr. Spenser Torrez's order; however, per d/w RN (Summer), pt continues to be too lethargic to participate safely with bedside swallow evaluation at this time. RN reported that it took a very long time to administer oral medications to pt this morning due to pt's lethargy. TRANSLATOR AND INTERPRETER recommended that consideration be given for pt's medications to be changed to non-oral method(s) for pt's safety at this time. Recommend: 1) strict NPO (oral cares only) until pt able to achieve/maintain adequate alertness again 2) consider alternative method(s) of nutrition/hydration/medication vs comfort measures, as appropriate 3) TRANSLATOR AND INTERPRETER will reattempt bedside swallow evaluation as pt able to participate safely, as appropriate PVE: TRANSLATOR AND INTERPRETER d/w RN (Summer).
[2017-12-14 12:00] VITALS: BP 84/50
[2017-12-14] MEDS: DEXT 5% / NACL 0.45% 1,000 ML IV SCH ×2 (12:59→22:15)
--- NOTE | 2017-12-14 13:27 | NUR ---
decreased fio2 t0 .40 rn aware
--- NOTE | 2017-12-14 13:36 | NUR ---
B/P 84/50. NOTIFIED DR DAVIS. ORDERS TO MONITOR. WILL MONITOR B/P.
--- NOTE | 2017-12-14 13:45 | NUR ---
OTHER MEDICATION STILL INFUSING WITH HANG DUE MEDICATIONS AFTER OTHER MEDICATION COMPLETE.
[2017-12-14 16:00] VITALS: BP 117/54
--- NOTE | 2017-12-14 16:00 | NUR ---
PT REPOSITIONED FOR COMFORT, NO BM NOTED, WILL CONTINUE TO MONITOR.
--- NOTE | 2017-12-14 16:40 | NUR ---
CALLED PHARMACY TO REQUEST MYCOSTATIN BE BROUGHT TO UNIT. WILL GIVE ONCE ON UNIT.
--- NOTE | 2017-12-14 17:30 | NUR ---
CONTINUED TO MONITOR PT ON VENT WITH SETTINGS CHARTED BREATH SOUNDS PRESENT BILAT DIMINISHED BIPAP PLUGGED INTO RED OUTLET AMBU BAG AT BEDSIDE
--- NOTE | 2017-12-14 18:00 | NUR ---
PROVIDED ORAL CARE FOR PT, B/P 117/54, REPOSITIONED PT FOR COMFORT, CONSENT FOR US GUIDED NEEDLE BX SIGNED AND IN CHART.
--- NOTE | 2017-12-14 19:30 | NUR ---
GAVE BEDSIDE REPORT TO ELECTRONIC SCANNER OPERATOR RN. PT STABLE.
--- NOTE | 2017-12-14 19:31 | NUR ---
RECEIVED REPORT FROM DAY SHIFT NURSE GISELA-RN AT BEDSIDE. PT RESTING IN BED WITH FAMILY AT BEDSIDE-AOX1, 2L/NC, LEFT HAND 22G RUNNING D5%/NS 0.45% AT 100ML/HR. ON AIRBORNE PRECAUTIONS FOR VIRAL ERYTHEMA. DISCUSSED PLAN OF CARE HOWEVER PT DID NOT REPLY COHERENTLY. NO S/S OF RESPIRATORY DISTRESS OR DISCOMFORT NOTED AT THIS TIME. BED IN LOWEST POSITION, BED BREAKS ON, BOTH SIDE RAILS UP. BED SIDE TABLE AND CALL LIGHT ARE WITHIN REACH. WILL CONTINUE TO MONITOR.
[2017-12-14 20:00] VITALS: BP 137/78
--- NOTE | 2017-12-14 20:00 | NUR ---
VITAL SIGNS TAKEN AND TOLERATED WELL. NO S/S OF RESPIRATORY DISTRESS OR DISCOMFORT NOTED AT THIS TIME. WILL CONTINUE TO MONITOR.
--- NOTE | 2017-12-14 20:20 | NUR ---
SCHEDULED MEDICATION ZOVIRAX GIVEN AND TOLERATED WELL. NO S/S OF RESPIRATORY DISTRESS OR DISCOMFORT NOTED AT THIS TIME. WILL CONTINUE TO MONITOR.
--- NOTE | 2017-12-14 20:30 | NUR ---
SCHEDULED MEDICATION FLAGYL GIVEN CRUSHED IN APPLE SAUCE AND TOLERATED WELL. NO S/S OF RESPIRATORY DISTRESS OR DISCOMFORT NOTED AT THIS TIME. WILL CONTINUE TO MONITOR.
--- NOTE | 2017-12-14 20:31 | NUR ---
BLOOD GLUCOSE 122-NO INSULIN COVERAGE NEEDED
--- NOTE | 2017-12-14 21:00 | NUR ---
ASSISTED COMMAND CENTER OFFICER WITH PARENIAL CARE. PT TOLERATED WELL. NO S/S OF RESPIRATORY DISTRESS OR DISCOMFORT NOTED AT THIS TIME. WILL CONTINUE TO MONITOR.
--- NOTE | 2017-12-14 23:00 | NUR ---
PT SLEEPING AT THIS TIME. NO S/S OF RESPIRATORY DISTRESS OR DISCOMFORT NOTED AT THIS TIME. PT NOW WEARING BIPAP MASK-TOLERATING WELL. WILL CONTINUE TO MONITOR.
[2017-12-15] VITALS: BP 97/56
--- NOTE | 2017-12-15 | NUR ---
VITAL SIGNS TAKEN AND TOLERATED WELL. NO S/S OF RESPIRATORY DISTRESS OR DISCOMFORT NOTED AT THIS TIME. WILL CONTINUE TO MONITOR.
[2017-12-15] MEDS: NYSTATIN POW 100 MU/GM 15 GM BTL TP SCH (00:59)
--- NOTE | 2017-12-15 01:00 | NUR ---
SCHEDULED MEDICATION NYSTATIN POWDER GIVEN TO PT ABDOMINAL FOLDS. PT TOLERATED WELL. NO S/S OF RESPIRATORY DISTRESS OR DISCOMFORT NOTED AT THIS TIME. WILL CONTINUE TO MONITOR.
--- NOTE | 2017-12-15 02:20 | NUR ---
HAIR BLENDER ASSISTED IN CHANGING CHUX AFTER PT SOILED THEM IN URINE. PERINEAL CARE DONE. PT TOLERATED WELL. NO S/S OF RESPIRATORY DISTRESS OR DISCOMFORT NOTED AT THIS TIME. WILL CONTINUE TO MONITOR.
[2017-12-15 04:00] VITALS: BP 105/62
[2017-12-15] MEDS: ACYCLOVIR IV SCH ×3 (04:22→19:49)
[2017-12-15] MEDS: NACL 0.9% IV SCH ×3 (04:22→19:49)
[2017-12-15] MEDS: DEXT 5% / NACL 0.45% 1,000 ML IV SCH ×2 (04:23→18:15)
--- NOTE | 2017-12-15 04:25 | NUR ---
SCHEDULED MEDICATION ZOVIRAX GIVEN AND TOLERATED WELL. NO S/S OF RESPIRATORY DISTRESS OR DISCOMFORT NOTED AT THIS TIME. WILL CONTINUE TO MONITOR.
[2017-12-15] MEDS: metroNIDAZOLE 500 MG TAB PO SCH ×3 (05:52→20:25)
--- NOTE | 2017-12-15 05:55 | NUR ---
SCHEDULED MEDICATION FLAGYL GIVEN CRUSHED AND IN APPLE SAUCE. PT TOLERATED WELL. NO S/S OF RESPIRATORY DISTRESS OR DISCOMFORT NOTED AT THIS TIME. WILL CONTINUE TO MONITOR.
[2017-12-15] MEDS: ALBUTEROL SULFATE/IPRATROPIU 3 ML SOL IH SCH ×3 (06:30→19:06)
--- NOTE | 2017-12-15 06:30 | NUR ---
rec'd pt on nikunj v60 bipap settings 12\5 rr 14 fio2 35% alarms on and audible ambu bag at side of bipap and bipap is plugged into red outlet, i\l tx given with duoneb 3ml with no adverse reaction post tx b\s are diminished bilaterally, pt is wearing med face mask and skin integrity is intact, pt is sleeping with no signs of distress noted, bipap off and pt is placed on 3lnc
[2017-12-15] MEDS ORDERED: VANCOMYCIN 1GM/DEXT 5% PREMIX 200 ML IV SCH (07:00)
[2017-12-15] MEDS ORDERED: VANCOMYCIN 1,250 MG in DEXTROSE 5% 250 ML IV SCH (07:00)
[2017-12-15 07:01] LABS: BASOPHILS % (AUTO) 0.6 % (0.0-2.0); EOSINOPHILS # (AUTO) 0.3 K/uL (0-0.4); EOSINOPHILS % (AUTO) 5.6 % (0.0-4.0); HEMATOCRIT 28.1 % (36-48); HEMOGLOBIN 9.6 g/dL (12.0-16.0); LYMPHOCYTES # (AUTO) 1.1 K/uL (2.5-16.5); LYMPHOCYTES % (AUTO) 22.8 % (20.5-51.1); MEAN CORPUSCULAR HEMOGLOBIN 32 pg (27-31); MEAN CORPUSCULAR HGB CONC 34 g/dL (33-37); MEAN CORPUSCULAR VOLUME 92.6 fL (80-94); MONOCYTES # (AUTO) 0.3 K/uL (0.8-1.0); MONOCYTES % (AUTO) 6.7 % (1.7-9.3); NEUTROPHILS % (AUTO) 64.3 % (42.2-75.2); PLATELET COUNT (AUTO) 194 K/uL (140-450); RED BLOOD CELL COUNT(AUTO) 3.04 MIL/uL (4.20-5.40); RED CELL DISTRIBUTION WIDTH 13.7 % (11.6-13.7); WHITE BLOOD COUNT (AUTO) 4.7 K/uL (4.8-10.8)
--- NOTE | 2017-12-15 07:40 | NUR ---
ENDORSED PT CARE TO DAY SHIFT NURSE CASE FOR CONTINUITY OF CARE.
--- NOTE | 2017-12-15 07:41 | NUR ---
RECEIVED REPORT FROM MANAGER ASSEMBLY NURSE. PATIENT LYING DOWN IN BED SLEEPING, AROUSABLE BY VOICE. RESPIRATIONS EVEN, UNLABORED, ON O2 2L/MIN VIA NC. AAOX3, CALM, COOPERATIVE, SKIN COLOR APPROPRIATE TO ETHNICITY, WARM TO TOUCH. HAS MULTIPLE PUSTULES NOTED ON ABDOMEN AND BACK AREA. B/L FOOTS HAS DRY, PEELING PATCHES OF SKIN NOTED. LUNGS CTA ON ALL LOBES. ABDOMEN SOFT. IV SITE INTACT, PATENT, AND INFUSING IVF PER MD ORDERS. REVIEWED PLAN OF CARE WITH PATIENT. PATIENT VERBALIZED UNDERSTANDING. SAFETY MEASURES IN PLACE, CALL LIGHT WITHIN REACH. WILL CONTINUE TO MONITOR.
[2017-12-15 07:44] LABS: ANION GAP 10.2 (8-16); CARBON DIOXIDE 24.3 mmol/L (21-32)
[2017-12-15 07:53] LABS: MAGNESIUM 1.5 mg/dL (1.8-2.4); PHOSPHORUS 2.7 mg/dL (2.5-4.9)
[2017-12-15 07:55] LABS: POTASSIUM 2.5 mmol/L (3.5-5.1)
[2017-12-15 08:00] VITALS: BP 113/77
[2017-12-15] MEDS ORDERED: MAG SULF 2000 MG/WATER PREMIX 50 ML IV ONE (08:45)
[2017-12-15] MEDS: LISINOPRIL 10 MG TAB PO SCH (09:00)
[2017-12-15] MEDS: ATORVASTATIN 20 MG TAB PO SCH (10:21)
[2017-12-15] MEDS: ASPIRIN 81 MG TAB.CHEW PO SCH (10:22)
[2017-12-15] MEDS: ZINC SULF 220 MG CAP PO SCH (10:22)
[2017-12-15] MEDS: LORATADINE 10 MG TAB PO SCH (10:22)
[2017-12-15] MEDS: LACTOBACILLUS RHAMNOSUS GG 1 EACH CAP PO SCH (10:22)
[2017-12-15] MEDS: METOPROLOL 25 MG TAB PO SCH (10:22)
[2017-12-15] MEDS: VITAMIN D 400 IU TAB GT SCH (10:23)
[2017-12-15] MEDS: MAGNESIUM SULFATE 1GM in DEXTROSE 5% 100 ML PREMIX IV SCH ×2 (10:23→11:55)
--- NOTE | 2017-12-15 10:42 | NUR ---
PATIENT SITTING AT BEDSIDE COMFORTABLY, TALKING WITH FAMILY MEMBERS AT BEDSIDE. NO DISTRESS NOTED. DENIES ANY PAIN. PERFORMED A SWALLOW EVAL WITH ICE CHIPS, WATER, AND APPLESAUCE AT BEDSIDE PER DR. RIOS REQUEST. PATIENT ABLE TO SWALLOW ICE CHIPS, APPLESAUCE, AND WATER FINE WITHOUT ANY PROBLEMS. SCHEDULED MEDICATIONS DUE GIVEN. SAFETY MEASURES IN PLACE, CALL LIGHT WITHIN REACH. WILL CONTINUE TO MONITOR.
[2017-12-15 12:00] VITALS: BP 121/74
[2017-12-15] MEDS ORDERED: KCL 20 MEQ/WATER INJ PREMIX 200 ML IV SCH (12:00)
--- NOTE | 2017-12-15 13:09 | NUR ---
PATIENT LYING DOWN IN BED SLEEPING, AROUSABLE BY VOICE. NO DISTRESS NOTED. DENIES ANY PAIN. SCHEDULED ANTIBIOTIC MEDICATIONS DUE GIVEN. SAFETY MEASURES IN PLACE, CALL LIGHT WITHIN REACH. WILL CONTINUE TO MONITOR.
--- NOTE | 2017-12-15 13:14 | NUR ---
PT SLEEPING WITH NO SIGNS OF DISTRESS NOTED AT THIS TIME, NO HHN GIVEN
--- NOTE | 2017-12-15 14:15 | NUR ---
PATIENT LYING DOWN IN BED SLEEPING, AROUSABLE BY VOICE. NO DISTRESS NOTED. DENIES ANY PAIN. SCHEDULED MEDICATIONS DUE GIVEN. WILL CONTINUE TO MONITOR.
[2017-12-15 16:00] VITALS: BP 115/72
--- NOTE | 2017-12-15 18:38 | NUR ---
PATIENT LYING DOWN IN BED SLEEPING, AROUSABLE BY VOICE. POTASSIUM IV IS STILL CONTINUING INFUSION. LACTULOSE NOT GIVEN DUE TO PATIENT HAVING DIARRHEA. SAFETY MEASURES IN PLACE, CALL LIGHT WITHIN REACH. WILL CONTINUE TO MONITOR.
[2017-12-15] MEDS ORDERED: LACTULOSE 20 GM/30 ML UDC PO SCH (19:00)
--- NOTE | 2017-12-15 19:35 | NUR ---
GAVE REPORT TO FAMILY LAW ATTORNEY NURSE FOR CONTINUITY OF CARE. PATIENT IN STABLE CONDITION.
--- NOTE | 2017-12-15 19:36 | NUR ---
RECEIVED REPORT FROM DAY SHIFT NURSE JOSE E-RN AT BEDSIDE. PT RESTING IN BED-AOX1, 2L/NC, LEFT HAND 22G RUNNING D5%/NS 0.45% AT 100ML/HR. ON AIRBORNE PRECAUTIONS FOR VIRAL ERYTHEMA. DISCUSSED PLAN OF CARE HOWEVER PT DID NOT REPLY COHERENTLY. NO S/S OF RESPIRATORY DISTRESS OR DISCOMFORT NOTED AT THIS TIME. BED IN LOWEST POSITION, BED BREAKS ON, BOTH SIDE RAILS UP. BED SIDE TABLE AND CALL LIGHT ARE WITHIN REACH. WILL CONTINUE TO MONITOR.
--- NOTE | 2017-12-15 19:50 | NUR ---
SCHEDULED MEDICATION ZOVIRAX GIVEN AND TOLERATED WELL. NO S/S OF RESPIRATORY DISTRESS OR DISCOMFORT NOTED AT THIS TIME. WILL CONTINUE TO MONITOR.
[2017-12-15 20:00] VITALS: BP 111/66
--- NOTE | 2017-12-15 20:00 | NUR ---
VITAL SIGNS TAKEN AND TOLERATED WELL. NO S/S OF RESPIRATORY DISTRESS OR DISCOMFORT NOTED AT THIS TIME. WILL CONTINUE TO MONITOR.
--- NOTE | 2017-12-15 22:00 | NUR ---
PT CONTINUES TO SLEEP. NO S/S OF RESPIRATORY DISTRESS OR DISCOMFORT NOTED AT THIS TIME. WILL CONTINUE TO MONITOR.
[2017-12-16] VITALS: BP 123/77
--- NOTE | 2017-12-16 | NUR ---
VITAL SIGNS TAKEN AND TOLERATED WELL. PT CONTINUES TO SLEEP. NO S/S OF RESPIRATORY DISTRESS OR DISCOMFORT NOTED AT THIS TIME. WILL CONTINUE TO MONITOR.
--- NOTE | 2017-12-16 02:00 | NUR ---
PT CONTINUES TO SLEEP. NO S/S OF RESPIRATORY DISTRESS OR DISCOMFORT NOTED AT THIS TIME. WILL CONTINUE TO MONITOR.
[2017-12-16] MEDS: DEXT 5% / NACL 0.45% 1,000 ML IV SCH ×3 (03:42→13:45)
[2017-12-16] MEDS: ACYCLOVIR IV SCH ×3 (03:42→20:45)
[2017-12-16] MEDS: NACL 0.9% IV SCH ×3 (03:42→20:45)
--- NOTE | 2017-12-16 03:45 | NUR ---
SCHEDULED MEDICATION ZOVIRAX GIVEN AND TOLERATED WELL. NO S/S OF RESPIRATORY DISTRESS OR DISCOMFORT NOTED AT THIS TIME. WILL CONTINUE TO MONITOR.
[2017-12-16 04:00] VITALS: BP 115/73
[2017-12-16] MEDS: metroNIDAZOLE 500 MG TAB PO SCH (04:42)
--- NOTE | 2017-12-16 04:45 | NUR ---
SCHEDULED MEDICATION FLAGYL GIVEN CRUSHED IN APPLE SAUCE. PT TOLERATED WELL. NO S/S OF RESPIRATORY DISTRESS OR DISCOMFORT NOTED AT THIS TIME. WILL CONTINUE TO MONITOR.
[2017-12-16] MEDS: ALBUTEROL SULFATE/IPRATROPIU 3 ML SOL IH SCH ×3 (06:39→19:17)
--- NOTE | 2017-12-16 07:17 | NUR ---
ENDORSED PT CARE TO DAY SHIFT NURSE CASE FOR CONTINUITY OF CARE.
--- NOTE | 2017-12-16 07:18 | NUR ---
RECEIVED REPORT FROM BELLMAN NURSE. PATIENT LYING DOWN IN BED SLEEPING, AROUSABLE BY VOICE AND LIGHT SHAKING. RESPIRATIONS EVEN, UNLABORED, ON O2 2L/MIN VIA NC. AAOX2, CALM, COOPERATIVE, SKIN COLOR APPROPRIATE TO ETHNICITY, WARM TO TOUCH. HAS RASH NOTED ON ABDOMEN AND BACK AREA. B/L FOOTS HAS DRY, PEELING PATCHES OF SKIN NOTED. LUNGS CTA ON ALL LOBES. ABDOMEN SOFT. IV SITE INTACT, PATENT, AND INFUSING IVF PER MD ORDERS. REVIEWED PLAN OF CARE WITH PATIENT. PATIENT VERBALIZED UNDERSTANDING. SAFETY MEASURES IN PLACE, CALL LIGHT WITHIN REACH. WILL CONTINUE TO MONITOR.
[2017-12-16 07:39] LABS: BASOPHILS % (AUTO) 0.8 % (0.0-2.0); EOSINOPHILS # (AUTO) 0.3 K/uL (0-0.4); EOSINOPHILS % (AUTO) 5.8 % (0.0-4.0); HEMATOCRIT 28.5 % (36-48); HEMOGLOBIN 9.7 g/dL (12.0-16.0); LYMPHOCYTES # (AUTO) 1.3 K/uL (2.5-16.5); LYMPHOCYTES % (AUTO) 27.9 % (20.5-51.1); MEAN CORPUSCULAR HEMOGLOBIN 32 pg (27-31); MEAN CORPUSCULAR HGB CONC 34 g/dL (33-37); MEAN CORPUSCULAR VOLUME 92.7 fL (80-94); MONOCYTES # (AUTO) 0.3 K/uL (0.8-1.0); MONOCYTES % (AUTO) 6.2 % (1.7-9.3); NEUTROPHILS # (AUTO) 2.7 K/uL (1.8-7.7); NEUTROPHILS % (AUTO) 59.3 % (42.2-75.2); PLATELET COUNT (AUTO) 211 K/uL (140-450); RED BLOOD CELL COUNT(AUTO) 3.08 MIL/uL (4.20-5.40); RED CELL DISTRIBUTION WIDTH 13.9 % (11.6-13.7); WHITE BLOOD COUNT (AUTO) 4.6 K/uL (4.8-10.8)
[2017-12-16 07:58] LABS: ANION GAP 12.3 (8-16); CARBON DIOXIDE 23.3 mmol/L (21-32)
[2017-12-16 08:00] VITALS: BP 113/67
[2017-12-16 08:03] LABS: MAGNESIUM 1.9 mg/dL (1.8-2.4); PHOSPHORUS 2.9 mg/dL (2.5-4.9)
[2017-12-16 08:09] LABS: POTASSIUM 2.6 mmol/L (3.5-5.1)
[2017-12-16] MEDS ORDERED: POTASSIUM CHLORIDE 10 MEQ TABER PO SCH (09:00)
[2017-12-16] MEDS: LISINOPRIL 10 MG TAB PO SCH (09:00)
[2017-12-16] MEDS: LORATADINE 10 MG TAB PO SCH (09:25)
[2017-12-16] MEDS: LACTOBACILLUS RHAMNOSUS GG 1 EACH CAP PO SCH (09:25)
[2017-12-16] MEDS: VITAMIN D 400 IU TAB GT SCH (09:25)
[2017-12-16] MEDS: ATORVASTATIN 20 MG TAB PO SCH (09:25)
[2017-12-16] MEDS: METOPROLOL 25 MG TAB PO SCH (09:26)
[2017-12-16] MEDS: ASPIRIN 81 MG TAB.CHEW PO SCH (09:26)
[2017-12-16] MEDS: ZINC SULF 220 MG CAP PO SCH (09:26)
[2017-12-16] MEDS ORDERED: POTASSIUM CHLORIDE 20% 40 MEQ/15 ML UDC PO SCH (09:42)
--- NOTE | 2017-12-16 09:44 | NUR ---
PATIENT LYING DOWN IN BED SLEEPING, AROUSABLE BY VOICE AND SHAKING. DAUGHTER AT BEDSIDE. SCHEDULED MEDICATIONS DUE GIVEN. UNABLE TO SWALLOW POTASSIUM PO PILLS, WILL ASK PHARMACY TO CONVERT TO LIQUID. SAFETY MEASURES IN PLACE, CALL LIGHT WITHIN REACH. WILL CONTINUE TO MONITOR.
[2017-12-16] MEDS ORDERED: KCL 20 MEQ/WATER INJ PREMIX 200 ML IV SCH (10:00)
--- NOTE | 2017-12-16 11:48 | NUR ---
PATIENT LYING DOWN IN BED, TALKING WITH DAUGHTER AT BEDSIDE. NO DISTRESS NOTED. DENIES ANY PAIN. SCHEDULED MEDICATIONS DUE GIVEN. SAFETY MEASURES IN PLACE CALL LIGHT WITHIN REACH. WILL CONTINUE TO MONITOR.
[2017-12-16 12:00] VITALS: BP 134/78
--- NOTE | 2017-12-16 13:24 | NUR ---
PATIENT LYING IN BED SLEEPING, AROUSABLE BY VOICE. NO DISTRESS NOTED. FLACC 0. SCHEDULED ANTIBIOTIC MEDICATION DUE GIVEN. SAFETY MEASURES IN PLACE, CALL LIGHT WITHIN REACH. WILL CONTINUE TO MONITOR.
[2017-12-16 16:00] VITALS: BP 112/79
--- NOTE | 2017-12-16 16:40 | NUR ---
ASSISTED SUPERVISOR MODERN LANGUAGES IN CLEANING AND REPOSITIONING PATIENT. NO DISTRESS NOTED. FLACC 0. CONDITION UNCHANGED. SAFETY EMEASURES IN PLACE, CALL LIGHTW TIHIN REACH. WILL CONTINUE TO MONITOR.
[2017-12-16] MEDS: POTASSIUM CHL 20 MEQ/D5-1/2NS 1,000 ML IV SCH (18:42)
--- NOTE | 2017-12-16 18:49 | NUR ---
PATIENT LYING IN BED TALKING WITH FAMILY MEMBERS AT BEDSIDE. NO DISTRESS NOTED. DENIES ANY PAIN. NEW IV FLUIDS ORDERS STARTED. CONDITION UNCHANGED. WILL CONTINUE TO MONITOR.
[2017-12-16] MEDS ORDERED: LORazepam 2 MG/ML VIAL IM/IVP PRN (19:00)
--- NOTE | 2017-12-16 19:29 | NUR ---
GAVE REPORT TO CHAR CONVEYOR TENDER CELLAR NURSE FOR CONTINUITY OF CARE. PATIENT IN STABLE CONDITION.
--- NOTE | 2017-12-16 19:30 | NUR ---
RECEIVED REPORT FROM DAY SHIFT NURSE JOSE E-RN AT BEDSIDE. PT RESTING IN BED-AOX1, 2L/NC, RIGHT FA #20G AND NEW IV LINE ON RIGHT FA #22G. ON AIRBORNE PRECAUTIONS FOR SHINGLES. DISCUSSED PLAN OF CARE HOWEVER PT DID NOT REPLY. NO S/S OF RESPIRATORY DISTRESS OR DISCOMFORT NOTED AT THIS TIME. BED IN LOWEST POSITION, BED BREAKS ON, BOTH SIDE RAILS UP. BED SIDE TABLE AND CALL LIGHT ARE WITHIN REACH. WILL CONTINUE TO MONITOR.
[2017-12-16 20:00] VITALS: BP 122/71
--- NOTE | 2017-12-16 20:00 | NUR ---
VITAL SIGNS TAKEN AND TOLERATED WELL. NO S/S OF RESPIRATORY DISTRESS OR DISCOMFORT NOTED AT THIS TIME. WILL CONTINUE TO MONITOR.
--- NOTE | 2017-12-16 20:45 | NUR ---
SCHEDULED MEDICATION ZOVIRAX GIVEN AND TOLERATED WELL. NO S/S OF RESPIRATORY DISTRESS OR DISCOMFORT NOTED AT THIS TIME. WILL CONTINUE TO MONITOR.
[2017-12-16] MEDS: POTASSIUM CHLORIDE 20% 40 MEQ/15 ML UDC PO SCH (22:09)
--- NOTE | 2017-12-16 22:10 | NUR ---
SCHEDULED MEDICATION POTASSIUM CHLORIDE GIVEN ORALLY. PT WAS DIFFICULT TO AROUSE. PT WAS ABLE TO SWALLOW SOME MEDICATION AND SOME WOULD COME OUT OF HER OTHER CHEEK DROOL. NO S/S OF RESPIRATORY DISTRESS OR DISCOMFORT NOTED AT THIS TIME. WILL CONTINUE TO MONITOR.
[2017-12-17] VITALS: BP 117/74
--- NOTE | 2017-12-17 | NUR ---
VITAL SIGNS TAKEN AND TOLERATED WELL. NO S/S OF RESPIRATORY DISTRESS OR DISCOMFORT NOTED AT THIS TIME. PT CONTINUES TO SLEEP. WILL CONTINUE TO MONITOR.
--- NOTE | 2017-12-17 02:00 | NUR ---
PT CONTINUES TO SLEEP. NO S/S OF RESPIRATORY DISTRESS OR DISCOMFORT NOTED AT THIS TIME. WILL CONTINUE TO MONITOR.
[2017-12-17] MEDS: NACL 0.9% IV SCH ×3 (03:57→20:18)
[2017-12-17] MEDS: ACYCLOVIR IV SCH ×3 (03:57→20:18)
[2017-12-17 04:00] VITALS: BP 121/77
--- NOTE | 2017-12-17 04:00 | NUR ---
VITAL SIGNS TAKEN AND TOLERATED WELL. SCHEDULED MEDICATION ZOVIRAX GIVEN AND TOLERATED WELL. NO S/S OF RESPIRATORY DISTRESS OR DISCOMFORT NOTED AT THIS TIME. WILL CONTINUE TOT MONITOR.
[2017-12-17 06:19] LABS: BASOPHILS % (AUTO) 0.8 % (0.0-2.0); EOSINOPHILS # (AUTO) 0.2 K/uL (0-0.4); EOSINOPHILS % (AUTO) 4.3 % (0.0-4.0); HEMATOCRIT 27.9 % (36-48); HEMOGLOBIN 9.4 g/dL (12.0-16.0); LYMPHOCYTES % (AUTO) 25.8 % (20.5-51.1); MEAN CORPUSCULAR HEMOGLOBIN 31 pg (27-31); MEAN CORPUSCULAR HGB CONC 34 g/dL (33-37); MEAN CORPUSCULAR VOLUME 92.8 fL (80-94); MONOCYTES # (AUTO) 0.3 K/uL (0.8-1.0); NEUTROPHILS # (AUTO) 2.4 K/uL (1.8-7.7); NEUTROPHILS % (AUTO) 61.1 % (42.2-75.2); PLATELET COUNT (AUTO) 209 K/uL (140-450); WHITE BLOOD COUNT (AUTO) 3.9 K/uL (4.8-10.8)
[2017-12-17] MEDS: ALBUTEROL SULFATE/IPRATROPIU 3 ML SOL IH SCH ×3 (06:26→19:47)
--- NOTE | 2017-12-17 06:26 | NUR ---
pt sleeping with no signs of distress noted at this time no hhn given
[2017-12-17 06:51] LABS: ANION GAP 11.4 (8-16); CARBON DIOXIDE 23.7 mmol/L (21-32); POTASSIUM 3.1 mmol/L (3.5-5.1)
[2017-12-17 06:53] LABS: MAGNESIUM 1.6 mg/dL (1.8-2.4); PHOSPHORUS 2.9 mg/dL (2.5-4.9)
--- NOTE | 2017-12-17 07:41 | NUR ---
ENDORSED PT CARE TO DAY SHIFT NURSE SITAL-RN FOR CONTINUITY OF CARE.
--- NOTE | 2017-12-17 07:42 | NUR ---
RECEIVED REP[ORT FROM PM NURSE. PT ON AIRBORNE ISOLATION FOR SHINGLES. PY HAS IB ON RT FA 20 AND 22 G , INFUSING WELL. PT LYING ON BED, ON O2/2LPM VIA NC. PT LYING ON BED COMFORTABLY. NO SIGN OF DISTRESS. WILL CONTINUE TO MONITOR PT.
[2017-12-17 08:00] VITALS: BP 127/77
[2017-12-17] MEDS: POTASSIUM CHL 20 MEQ/D5-1/2NS 1,000 ML IV SCH (08:00)
[2017-12-17] MEDS ORDERED: KCL 20 MEQ/WATER INJ PREMIX 200 ML IV ONE (08:40)
[2017-12-17] MEDS ORDERED: MAGNESIUM OXIDE 400 MG TAB PO SCH (09:02)
--- NOTE | 2017-12-17 09:15 | NUR ---
spoke with daughter reji about having her mom sxn as needed i told her i needed to speak with doctor concerning this.
[2017-12-17] MEDS ORDERED: SPIR25TA PO (09:20)
[2017-12-17] MEDS ORDERED: ZIN220 PO (09:20)
[2017-12-17] MEDS ORDERED: LORA10TA19 PO (09:20)
[2017-12-17] MEDS ORDERED: METO25TA PO (09:20)
[2017-12-17] MEDS ORDERED: ALBU3SOL83 IH ×2 (09:20)
[2017-12-17] MEDS ORDERED: POTASSIUM CHLORIDE 10 MEQ TABER PO SCH (09:28)
[2017-12-17] MEDS: ASPIRIN 81 MG TAB.CHEW PO SCH (09:55)
[2017-12-17] MEDS: POTASSIUM CHLORIDE 20% 40 MEQ/15 ML UDC PO SCH ×2 (09:55→21:00)
[2017-12-17] MEDS: VITAMIN D 400 IU TAB GT SCH (09:55)
[2017-12-17] MEDS: DOCUSATE SODIUM 100 MG GELCAP PO SCH (09:55)
[2017-12-17] MEDS: LACTOBACILLUS RHAMNOSUS GG 1 EACH CAP PO SCH (09:56)
[2017-12-17] MEDS: ATORVASTATIN 20 MG TAB PO SCH (09:56)
[2017-12-17] MEDS: ZINC SULF 220 MG CAP PO SCH (09:56)
[2017-12-17] MEDS: METOPROLOL 25 MG TAB PO SCH (09:56)
[2017-12-17] MEDS: LISINOPRIL 10 MG TAB PO SCH (09:57)
[2017-12-17] MEDS: LORATADINE 10 MG TAB PO SCH (09:57)
[2017-12-17] MEDS: SPIRONOLACTONE 25 MG TAB PO SCH (09:57)
--- NOTE | 2017-12-17 10:13 | NUR ---
dalila mcleod concerning the pt clemente in room 117. how the daughter reji wanted mom to be snx three times aday, i explained to dr. mcleod the concerns on sxn the pt and asked if he could place a PRN order for suctioning pt.
--- NOTE | 2017-12-17 10:30 | NUR ---
K-DUR NOT ADMINISTERED. POT 20 MEQ 1000 ML IVF INFUSING @ 80 ML/HR FROM AM SHIFT AND PO 15 ML POTASSIUM CHLORIDE ADMINISTERED. DR GARCIA AWARE. WILL CONTINUE TO MONITOR PT. PT WAS LYING ON HER BED. ADMINISTERED MEDS CRUSHING AND MIXING WITH APPLE SAUCE. PT TOLERATED WELL. NO SIGN OF DISTRESS. PT FAMILY AT THE BEDSIDE. WILL CONTINUE TO MONITOR PT.
[2017-12-17 12:00] VITALS: BP 122/74
--- NOTE | 2017-12-17 12:00 | NUR ---
CHECKED ON PT. PT SLEEPING ON HER BED. NORMAL RESPIRATION, NORMAL VS. ADMINISTERED ACYCLOVIR TO THE PT. TOLERATED WELL. NO SIGN OF DISTRESS. ALL SAFETY MEASURE IN PLACE. WILL CONTINUE TO MONITOR PT.
[2017-12-17 13:41] LABS: ANION GAP 11.1 (8-16); CARBON DIOXIDE 24.6 mmol/L (21-32); POTASSIUM 3.7 mmol/L (3.5-5.1)
--- NOTE | 2017-12-17 14:00 | NUR ---
AEDMINISTERED ROCEPHIN TO PT. ADMINISTERED WELL. ST EVAL DONE ON PT. CAN HAVE PUREED DIET WHEN SHE IS AWAKE. ASPIRATION PRECAUTION. ALL SAFETY MEASURE I PLACE. WILL CONTINUE TO MONITOR PT.
--- NOTE | 2017-12-17 14:13 | NUR ---
RAIL DETECTOR CAR OPERATOR NOTE [id number] Bedside swallow evaluation completed following clearance by STEPHANIE Hankins. Please refer to RAIL DETECTOR CAR OPERATOR evaluation for full report. Recommend: -Puree texture + thin liquids for all PO intake, crush meds w/applesauce -1:1 feeder assistance, upright at 90 during and 20 min after intake -Small bites/sips, slow rate, alternate bites/sips -Feed only when awake and alert, stop if pt is lethargic or unable to swallow -Consideration for enteral feeding if pt unable to meet nutrition/hydration needs PO -No further RAIL DETECTOR CAR OPERATOR intervention indicated. PVE w/RN re: results and recommendations, emphasis on stopping PO intake if pt unable to stay alert. Swallow precautions placed at [facility]. G8996: CK G8997: CK G8998: CK Swallow NOMS 3
--- NOTE | 2017-12-17 15:56 | NUR ---
12/17/17 RD FOLLOW UP COMPLETED PLEASE REFER TO NUTRITION PROGRESS NOTE UNDER CARE ACTIVITY FOR ESTIMATED NUTRITION NEEDS. RD RECOMMENDATIONS: 1. RECOMMEND [id number] PUREE DIET TOLERATED 2. RD TO FOLLOW-UP 3-5 DAYS, MODERATE RISK CESAR HAGEN RD
[2017-12-17 16:00] VITALS: BP_SYST 131
--- NOTE | 2017-12-17 16:30 | NUR ---
VS NOTED AT THE BEDSIDE OF THE PT. FAMILY AT THE BEDSIDE. INFORMED THAT CONSENT FORM NEEDS TO BE SIGNED FOR COLONOSCOPY FOR THE PT. SON STATES THAT HE WILL CALL SISTER AND FIND OUT IF HE WILL BE ABLE TO SIGN THE CONSENT SISTER IS USUALLY THE ONE WHO DOES PAPER WORK. INFORMED THAT WILL CHECK FOR THE CONSENT SIGNING LATER. NO SIGN OF DISTRESS. WILL CONTINUE TO MONITOR THE PT.
--- NOTE | 2017-12-17 19:20 | NUR ---
OBTAINED THE CONSENT FORM THE SON LINDA AT THE BEDSIDE FOR THE COLONOSCOPY. GAVE REPORT TO THE PM NURSE FOR THE CONTINUITY OF THE CARE. PT TO REMAIN NPO SINCE MIDNIGHT FOR THE PENDING PROCEDURE IN MORNING. NO SIGN OF DISTRESS. PT WAS BEING FED BY SON. PT IN STABLE CONDITION .
--- NOTE | 2017-12-17 19:25 | NUR ---
RECEIVED PATIENT LYING ON BED WITH FAMILY MEMBER. DISCUSS PLAN OF CARE. FALL PRECAUTION APPLIED. CALL LIGHT WITHIN REACH. WILL CONTINUE TO MONITOR.
[2017-12-17 20:00] VITALS: BP 119/91
--- NOTE | 2017-12-17 21:00 | NUR ---
MEDICATION GIVEN TOLERATED WELL. REPOSITIONED PATIENT AND PLACE IN COMFORTABLE POSITION. NO S/S OF DISTRESS NOTED AT THIS TIME. WILL CONTINUE TO MONITOR.
--- NOTE | 2017-12-17 23:05 | NUR ---
REPOSITIONED PATIENT TO HER SIDE AND PLACE IN COMFORTABLE POSITION. FALL PRECAUTION APPLIED. NO S/S OF DISTRESS NOTED AT THIS TIME. CALL LIGHT WITHIN REACH. WILL CONTINUE TO MONITOR.
[2017-12-18] VITALS: BP 112/80
[2017-12-18] MEDS ORDERED: DEXT 5% / NACL 0.45% 1,000 ML IV SCH (00:30)
--- NOTE | 2017-12-18 03:00 | NUR ---
TURNED PATIENT TO HER SIDE AND PLACE IN COMFORTABLE POSITION. NO S/S OF DISTRESS NOTED.
[2017-12-18 04:00] VITALS: BP 125/77
[2017-12-18] MEDS: ACYCLOVIR IV SCH ×3 (04:28→19:52)
[2017-12-18] MEDS: NACL 0.9% IV SCH ×3 (04:28→19:52)
--- NOTE | 2017-12-18 05:30 | NUR ---
AM CARE DONE. CHANGED LINEN AND REPOSITIONED FOR COMFORT. MEDICATION GIVEN. NO S/S OF DISTRESS. FALL PRECAUTION APPLIED.
[2017-12-18 06:44] LABS: BASOPHILS % (AUTO) 0.9 % (0.0-2.0); EOSINOPHILS # (AUTO) 0.2 K/uL (0-0.4); EOSINOPHILS % (AUTO) 4.6 % (0.0-4.0); HEMATOCRIT 28.7 % (36-48); HEMOGLOBIN 9.8 g/dL (12.0-16.0); LYMPHOCYTES # (AUTO) 1.4 K/uL (2.5-16.5); LYMPHOCYTES % (AUTO) 30.6 % (20.5-51.1); MEAN CORPUSCULAR HEMOGLOBIN 32 pg (27-31); MEAN CORPUSCULAR HGB CONC 34 g/dL (33-37); MEAN CORPUSCULAR VOLUME 92.8 fL (80-94); MONOCYTES # (AUTO) 0.4 K/uL (0.8-1.0); MONOCYTES % (AUTO) 9.1 % (1.7-9.3); NEUTROPHILS # (AUTO) 2.5 K/uL (1.8-7.7); NEUTROPHILS % (AUTO) 54.8 % (42.2-75.2); PLATELET COUNT (AUTO) 227 K/uL (140-450); RED CELL DISTRIBUTION WIDTH 13.8 % (11.6-13.7); WHITE BLOOD COUNT (AUTO) 4.5 K/uL (4.8-10.8)
[2017-12-18] MEDS: ALBUTEROL SULFATE/IPRATROPIU 3 ML SOL IH SCH ×3 (06:52→18:59)
[2017-12-18 07:18] LABS: ANION GAP 11.7 (8-16); CARBON DIOXIDE 25.4 mmol/L (21-32); CREATININE 0.9 mg/dL (0.6-1.3); POTASSIUM 3.1 mmol/L (3.5-5.1)
[2017-12-18 07:24] LABS: MAGNESIUM 1.9 mg/dL (1.8-2.4); PHOSPHORUS 2.6 mg/dL (2.5-4.9)
--- NOTE | 2017-12-18 07:31 | NUR ---
ENDORSEMENT GIVEN AT BEDSIDE TO AM SHIFT NURSE FOR CONTINUITY OF CARE. PATIENT IN STABLE CONDITION.
--- NOTE | 2017-12-18 07:32 | NUR ---
RECEIVED PT FORM AM NURSE AT THE BEDSIDE. PER PM NURSE NO SIGNIFICANT CHANGE ON THE PT. POTASSIUM INFUSION COMPLETED. PT HAS THE INFUSION OF 5% DEXTROSE IVF @40ML/HR. PT ON NPO SINCE MIDNIGHT FOR THE COLONOSCOPY TODAY. ALL SAFETY MEASURE IN PLACE. VS NORMAL.NO SIGN OF DISTRESS. WILL CONTINUE TO MONITOR PT.
[2017-12-18 08:00] VITALS: BP 118/75
[2017-12-18] MEDS: LISINOPRIL 10 MG TAB PO SCH (10:22)
[2017-12-18] MEDS: DOCUSATE SODIUM 100 MG GELCAP PO SCH (10:22)
[2017-12-18] MEDS: ZINC SULF 220 MG CAP PO SCH (10:22)
[2017-12-18] MEDS: SPIRONOLACTONE 25 MG TAB PO SCH (10:23)
[2017-12-18] MEDS: VITAMIN D 400 IU TAB GT SCH (10:23)
[2017-12-18] MEDS: LACTOBACILLUS RHAMNOSUS GG 1 EACH CAP PO SCH (10:23)
[2017-12-18] MEDS: ATORVASTATIN 20 MG TAB PO SCH (10:24)
[2017-12-18] MEDS: ASPIRIN 81 MG TAB.CHEW PO SCH (10:24)
[2017-12-18] MEDS: NACL 0.45% 1,000 ML IV SCH (10:25)
[2017-12-18] MEDS: POTASSIUM CHLORIDE 20% 40 MEQ/15 ML UDC PO SCH (10:25)
--- NOTE | 2017-12-18 10:30 | NUR ---
ADMINISTERED MEDS ORDERED BY CRUSHING PILLS . MIXED WITH APPLE SAUCE AND ADMINISTER TO PT. TOLERATED WELL. NO SIGN OF DISTRESS . IVF INFUSING WELL. WILL CONTINUE TO MONITOR PT.
[2017-12-18] MEDS: METOPROLOL 25 MG TAB PO SCH (10:38)
[2017-12-18] MEDS: LORATADINE 10 MG TAB PO SCH (10:49)
[2017-12-18 12:00] VITALS: BP 125/94
--- NOTE | 2017-12-18 12:08 | NUR ---
MD CALLED , ASKED TO CANCEL THE BARIUM ENEMA . WILL GO DIRECTLY FOR COLONOSCOPY. CNSENT OBTAINED ALREADY. PT ON NPO. CHARGE NURSE AWARE. WILL CONTINUE TO MONITOR PT.
--- NOTE | 2017-12-18 12:10 | NUR ---
EXPLAINED THE PT THAT PT IS GOING FOR COLONOSCOPY, BARIUM ENEMA WITH CONTRAST HAS BEEN CANCELLED. VERBALISED UNDERSTANDING,
--- NOTE | 2017-12-18 12:53 | NUR ---
PER MONITOR CHANG, GI NURSE CALLED AND ASKED TO NOT TAKE PT FOR ANY PROCEDURE YET BECAUSE DOCTOR WILL BE ARRIVING LATE. WILL CONTINUE TO MONITOR PT.
--- NOTE | 2017-12-18 15:00 | NUR ---
CHANGED THE PT WITH HELP OF HAT CLEANER. PT HAS NO DIARRHEA, NO LOOSE STOOL. IS INCONTINENT OF URINE. RASHES ON THE SACRAL AREA AND TIGH SEEN BETTER THAN YESTERDAY. NO FOUL SMELLING, IS DRY. APPLIED Z-GUARD FOR THE SKIN PROTECTION. KEPT GEOLOGIC TECHNICIAN. REPOSITIONED THE PT. WILL CONTINUE TO MONITOR THE PT.
[2017-12-18 16:00] VITALS: BP 116/78
--- NOTE | 2017-12-18 16:30 | NUR ---
OR NURSE AT THE DOOR-SIDE OF THE PT. STATES THAT PT WILL BE ON CLEAR LIQUID DIET FOR THIS EVENING , TOP STAY NPO AFTER MIDNIGHT FOR THE COLONOSCOPY FOR TOMORROW. DUE TO WARM TEMP IN OR, IT GOT CANCELLED TODAY. WILL PASS THE INFORMATION TO THE PM NURSE. WILL CONTINUE TO MONITOR THE PT.
--- NOTE | 2017-12-18 17:00 | NUR ---
SON LINDA WITH PT. INFORMED HIM ABOUT THE COLONOSCOPY TO BE DONE TOMORROW BECAUSE OF RO HAVING WARMING TEMPERATURE.VERBALIZED UNDERSTANDING OF TEACHING. WILL CONVEY THE INFORMATION TO THE SISTER. WILL CONTINUE TO MONITOR THE PT.
--- NOTE | 2017-12-18 19:15 | NUR ---
RECEIVED REPORT FROM DAY SHIFT NURSE AT PT BEDSIDE. PT IN STABLE CONDITION. FAMILY IS BEDSIDE. PT IS A/O X3. NC 2L. PT HAS L SIDED WEAKNESS. IV ACCESS R ARM 20G AND R WRIST 22G WITH IVF RUNNING PER MD ORDERS. IVS ARE PATENT AND INTACT. PT HAS RASH ON SACRAL AREA AND L UPPER THIGH. BED IS LOCKED, LOWEST POSITION WITH SIDE RAILS UP X2. BOARD UPDATED. WILL CONTINUE TO MONITOR PT.
--- NOTE | 2017-12-18 19:15 | NUR ---
ENDORSED PT TO PM NURSE AT THE BEDSIDE. INFORMED HER THAT PT TO REMAIN NPO SINCE MIDNIGHT FOR PROCEDURE COLONOSCOPY FOR TOMORROW. PT IN STABLE CONDITION. GRANDSON AND GRANDDAUGHTER AT THE BEDSIDE.
--- NOTE | 2017-12-18 19:52 | NUR ---
ADMINISTERED ORDER MEDICATION. PT TOLERATING WELL. WILL CONTINUE TO MONITOR.
[2017-12-18 20:00] VITALS: BP 126/93
[2017-12-18] MEDS ORDERED: POTASSIUM CHLORIDE 10 MEQ TABER PO ONE (20:30)
--- NOTE | 2017-12-18 22:00 | NUR ---
PT ASLEEP IN BED. NO S/SX OF DISTRESS. WILL CONTINUE TO MONITOR.
[2017-12-19] VITALS: BP 134/79
--- NOTE | 2017-12-19 00:25 | NUR ---
ASSISTED ENGRAVER JEWELRY IN CLEANING AND CHANGING PT. TURNED PT. PT TOLERATED WELL. WILL CONTINUE TO MONITOR.
[2017-12-19] MEDS ORDERED: ACYCLOVIR 500 MG VIAL IV ONE (03:49)
[2017-12-19 04:00] VITALS: BP 137/84
[2017-12-19] MEDS: NACL 0.45% 1,000 ML IV SCH (04:06)
[2017-12-19] MEDS: NACL 0.9% IV SCH ×2 (04:07→12:19)
[2017-12-19] MEDS: ACYCLOVIR IV SCH ×2 (04:07→12:19)
--- NOTE | 2017-12-19 04:07 | NUR ---
ADMINISTERED ORDER MEDICATION. PT TOLERATING WELL. WILL CONTINUE TO MONITOR.
--- NOTE | 2017-12-19 07:15 | NUR ---
ENDORSED PT TO DAY SHIFT NURSE FOR CONTINUITY OF CARE. PT IN STABLE CONDITION.
--- NOTE | 2017-12-19 07:20 | NUR ---
RECEIVED REPORT FROM LEAD NET SOFTWARE DEVELOPER RN. PT IN STABLE CONDITION, AROUSABLE BY VOICE. ON AIRBORNE PRECAUTIONS DUE TO SHINGLES. SHINGLES LESIONS ON LEFT SIDE OF BODY. NPO NOW, SCHEDULED FOR COLONOSCOPY TODAY. SATURATING WELL ON 2L NC. WOUND ON BUTTOCKS. SOME ECCHYMOSIS NOTED ON RIGHT ARM. IV SITE PATENT AND RUNNING IVF PER MD ORDERS. LUNGS CTA IN ALL [place]. HEART RHYTHM REGULAR. ABDOMEN LARGE AND SOFT. ALL SAFETY PRECAUTIONS IN PLACE, WILL CONTINUE TO MONITOR.
[2017-12-19 07:32] LABS: BASOPHILS % (AUTO) 0.9 % (0.0-2.0); EOSINOPHILS # (AUTO) 0.2 K/uL (0-0.4); EOSINOPHILS % (AUTO) 3.3 % (0.0-4.0); HEMATOCRIT 28.9 % (36-48); HEMOGLOBIN 9.7 g/dL (12.0-16.0); LYMPHOCYTES # (AUTO) 1.3 K/uL (2.5-16.5); LYMPHOCYTES % (AUTO) 26.2 % (20.5-51.1); MEAN CORPUSCULAR HEMOGLOBIN 31 pg (27-31); MEAN CORPUSCULAR HGB CONC 34 g/dL (33-37); MEAN CORPUSCULAR VOLUME 93.6 fL (80-94); MONOCYTES # (AUTO) 0.3 K/uL (0.8-1.0); NEUTROPHILS # (AUTO) 3.1 K/uL (1.8-7.7); NEUTROPHILS % (AUTO) 62.6 % (42.2-75.2); PLATELET COUNT (AUTO) 243 K/uL (140-450); RED BLOOD CELL COUNT(AUTO) 3.08 MIL/uL (4.20-5.40); RED CELL DISTRIBUTION WIDTH 14.2 % (11.6-13.7)
[2017-12-19 08:00] VITALS: BP 109/63
[2017-12-19] MEDS: ALBUTEROL SULFATE/IPRATROPIU 3 ML SOL IH SCH ×2 (08:03→13:53)
--- NOTE | 2017-12-19 08:03 | NUR ---
JARAD RADICAL-7 CONTINUOS PULSE OXIMETER AT BEDSIDE ON AND FUNCTIONING WELL LOW SATIRATION ALRAM SET AT 92%
[2017-12-19 08:18] LABS: ANION GAP 10.8 (8-16); CARBON DIOXIDE 24.6 mmol/L (21-32); CREATININE 0.7 mg/dL (0.6-1.3); POTASSIUM 3.4 mmol/L (3.5-5.1)
[2017-12-19 08:20] LABS: MAGNESIUM 1.5 mg/dL (1.8-2.4); PHOSPHORUS 2.8 mg/dL (2.5-4.9)
[2017-12-19] MEDS ORDERED: MIDAZOLAM 2 MG/2 ML VIAL ONE (09:21)
[2017-12-19] MEDS ORDERED: fentaNYL 0.05 MG/ML VIAL ONE (09:21)
[2017-12-19] MEDS: LACTOBACILLUS RHAMNOSUS GG 1 EACH CAP PO SCH (10:06)
[2017-12-19] MEDS: DOCUSATE SODIUM 100 MG GELCAP PO SCH (10:06)
[2017-12-19] MEDS: LISINOPRIL 10 MG TAB PO SCH (10:06)
[2017-12-19] MEDS: ATORVASTATIN 20 MG TAB PO SCH (10:07)
[2017-12-19] MEDS: SPIRONOLACTONE 25 MG TAB PO SCH (10:07)
[2017-12-19] MEDS: VITAMIN D 400 IU TAB GT SCH (10:07)
[2017-12-19] MEDS: ZINC SULF 220 MG CAP PO SCH (10:07)
[2017-12-19] MEDS: LORATADINE 10 MG TAB PO SCH (10:07)
[2017-12-19] MEDS: METOPROLOL 25 MG TAB PO SCH (10:08)
[2017-12-19] MEDS: ASPIRIN 81 MG TAB.CHEW PO SCH (10:09)
--- NOTE | 2017-12-19 10:23 | NUR ---
PT IS BEING TAKEN TO COLONOSCOPY NOW.
--- NOTE | 2017-12-19 11:15 | NUR ---
PATIENT IS BACK IN ROOM FROM COLONOSCOPY. DR. BACH AND DR. DAVIS AT BEDSIDE TO EXPLAIN FINDINGS TO PT AND DAUGHTER.
[2017-12-19] MEDS ORDERED: MAGNESIUM CITRATE 300 ML BTL PO SCH (11:30)
--- NOTE | 2017-12-19 11:30 | NUR ---
PER DR. DAVIS, PT NO LONGER NEEDS AIRBORNE PRECAUTIONS. DR. DAVIS TO PUT IN ORDER FOR STANDARD PRECAUTIONS.
[2017-12-19 12:00] VITALS: BP 115/77
[2017-12-19] MEDS: SENNA 8.6 MG TAB PO SCH ×2 (12:11→17:11)
[2017-12-19] MEDS ORDERED: MIDAZOLAM 2 MG/2 ML VIAL IVP ONE (12:20)
[2017-12-19] MEDS ORDERED: fentaNYL 0.05 MG/ML VIAL IVP ONE (12:20)
--- NOTE | 2017-12-19 13:28 | NUR ---
ROCEPHIN IVPB DUE NOW IS NOT AVAILABLE IN PT CASSETTE. PHARMACY IS NOTIFIED AND WILL BRING IT TO THE UNIT.
--- NOTE | 2017-12-19 13:53 | NUR ---
Ai VILLAVICENCIO, SRT GIVING HHN THERAPY AND DOCUMENTING...Sudheer HOLBROOK, SOCCER COMMENTATOR
[2017-12-19] MEDS ORDERED: DOCU-299 PO (14:30)
[2017-12-19] MEDS ORDERED: SENN-73 PO (14:30)
[2017-12-19] MEDS ORDERED: METO-485 PO (14:49)
--- NOTE | 2017-12-19 15:11 | NUR ---
PT IS RESTING IN BED, AWAKE AND COMMUNICATIVE. NO COMPLAINTS OF PAIN OR DISCOMFORT. PT REQUESTED TO TALK TO HER DAUGHTER. DAUGHTER WAS CALLED AND PT SPOKE WITH DAUGHTER.
[2017-12-19 16:00] VITALS: BP 116/72
--- NOTE | 2017-12-19 17:00 | NUR ---
DISCHARGE PAPERWORK, INCLUDING INSTRUCTIONS TO FOLLOW UP WITH PCP WITHIN 3-5 DAYS AND PLAN OF CARE WITH GI DOCTOR AND NEW PRESCRIPTIONS, GIVEN TO PATIENT AND FAMILY MEMBERS AT BEDSIDE. PT AND FAMILY MEMBERS VERBALIZED COMPLETE UNDERSTANDING OF ALL DISCHARGE TEACHING. IV SITES REMOVED WITH MINIMAL BLOOD LOSS AND LUMENS COMPLETELY INTACT. ID BANDS REMOVED. ALL PERSONAL BELONGINGS ARE WITH PATIENT. PT IN STABLE CONDITION AND WILL GO HOME VIA PRIVATE VEHICLE WITH FAMILY MEMBERS.
--- NOTE | 2017-12-19 17:05 | NUR ---
PT LEFT UNIT VIA WHEELCHAIR.
[2017-12-19] MEDS ORDERED: POLYETHYLENE GLYCOL 17 GM/PKT PO SCH (21:00)
[2017-12-20] MEDS ORDERED: POTASSIUM CHLORIDE 20% 40 MEQ/15 ML UDC PO SCH (09:00)
== END 2017-12-19 17:05 | disposition home or self-care (01) | DRG 871 ==
LOC: MED 06:03 → MTU 10:21
PROVIDERS: ADMIT General Practice; ATTEND General Practice
PROC: 5A09357 Assistance with Respiratory Ventilation, Less than 24 Consecutive Hours, Continuous Positive Airway Pressure (ICD-10-PCS; 2017-12-14)
PROC: 5A09357 Assistance with Respiratory Ventilation, Less than 24 Consecutive Hours, Continuous Positive Airway Pressure (ICD-10-PCS; 2017-12-15)
PROC: 0DJD8ZZ Inspection of Lower Intestinal Tract, Via Natural or Artificial Opening Endoscopic (ICD-10-PCS; principal; 2017-12-19 10:30)
DX: A41.9 Sepsis, unspecified organism (principal); N17.0 Acute kidney failure with tubular necrosis; G93.41 Metabolic encephalopathy; J96.02 Acute respiratory failure with hypercapnia; N39.0 Urinary tract infection, site not specified; B02.7 Disseminated zoster; J98.11 Atelectasis; E44.0 Moderate protein-calorie malnutrition; E87.2 Acidosis; E87.0 Hyperosmolality and hypernatremia; I69.354 Hemiplegia and hemiparesis following cerebral infarction affecting left non-dominant side; I69.353 Hemiplegia and hemiparesis following cerebral infarction affecting right non-dominant side; Z68.41 Body mass index [BMI] 40.0-44.9, adult; I10 Essential (primary) hypertension; E83.42 Hypomagnesemia; Z66 Do not resuscitate; E87.6 Hypokalemia; D64.9 Anemia, unspecified; B96.1 Klebsiella pneumoniae [K. pneumoniae] as the cause of diseases classified elsewhere; B96.4 Proteus (mirabilis) (morganii) as the cause of diseases classified elsewhere; E78.00 Pure hypercholesterolemia, unspecified; K52.9 Noninfective gastroenteritis and colitis, unspecified; E78.5 Hyperlipidemia, unspecified; I89.0 Lymphedema, not elsewhere classified; I83.12 Varicose veins of left lower extremity with inflammation; I83.11 Varicose veins of right lower extremity with inflammation; E11.51 Type 2 diabetes mellitus with diabetic peripheral angiopathy without gangrene; E87.8 Other disorders of electrolyte and fluid balance, not elsewhere classified; E83.51 Hypocalcemia; E66.01 Morbid (severe) obesity due to excess calories; E04.1 Nontoxic single thyroid nodule; E86.0 Dehydration; E87.70 Fluid overload, unspecified; K31.89 Other diseases of stomach and duodenum; Z88.5 Allergy status to narcotic agent; Z79.899 Other long term (current) drug therapy; Z79.82 Long term (current) use of aspirin; Z79.84 Long term (current) use of oral hypoglycemic drugs; Z74.01 Bed confinement status; Z71.3 Dietary counseling and surveillance
CPT/HCPCS: 36415; 36600; 70450; 70492; 71045; 74018; 76536; 76942; 80048; 80053; 80202; 80305; 81001; 82140; 82607; 82728; 82746; 82803; 82948; 83036; 83540; 83605; 83690; 83735; 83880; 84100; 84134; 84443; 84484; 85025; 85045; 85610; 85730; 87040; 87045; 87070; 87081; 87086; 87177; 87186; 89055; 92610; 93005; 93925; 93970; 94640; 94660; 96360; 97140; 97161-GP; 97799; 99285; J0133; J0696; J1815; J2250; J2543; J3010; J3370; J3475; J3480; J7030; J7060; J7620; Q0092; Q9967

== ENCOUNTER 2018-01-05 08:40 | Emergency (ER) | payer OTHER ==
[~2018-01-05] VITALS: Ht 157.5 cm; Wt 108.9 kg
[~2018-01-05 08:40] MED LIST changes: +ALBU3SOL83 IH; +ATOR40TA PO; +DOCU-299 PO; +LORA10TA19 PO; +METO-485 PO; +METO25TA PO; +SENN-73 PO; +SPIR25TA PO; -VITA400T14 GT; +ZIN220 PO
[2018-01-05 08:51] VITALS: BP 142/92
--- NOTE | 2018-01-05 08:55 | NUR ---
67 YO F BIB DAUGHTER W/ C/O HEMATURIA NOTED IN HER DIAPER X THIS MORNING. DAUGHTER REPORTS THAT SHE THINKS IT IS A UTI. PT WAS ADMITTED AT [facility] 12/10/18 AND JUST DISCHARGED ON 12/19/17 FOR UTI. PY AAOX4, GCS 15, CMS INTACT, RR EVEN AND UNLABORED, LUNGS CLEAR ON 2L/MIN O2 NC. PT DENIES PAIN AT THIS TIME, DENIES DYSURIA. ABD SOFT, NON-TENDER. ER MD NOTIFIED. PT NEEDS MET, SAFETY PRECAUTIONS IN PLACE, WILL CONTINUE TO MONITOR.
--- NOTE | 2018-01-05 09:57 | NUR ---
PT RESTING ON [facility] AT THIS TIME W/ VSS, RR EVEN AND UNLABORED. SAFETY PRECAUTIONS IN PLACE. WILL CONTINUE TO MONITOR.
[2018-01-05 10:12] LABS: APPEARANCE,URINE TURBID (CLEAR); BILIRUBIN,URINE 1+ (NEGATIVE); BLOOD, URINE 3+ (NEGATIVE); COLOR,URINE RED (YELLOW); LEUKOCYTE ESTERASE ,URINE NEGATIVE (NEGATIVE); NITRITE, URINE POSITIVE (NEGATIVE); UGLUCOSE TRACE (NEGATIVE)
[2018-01-05 10:26] LABS: RBC,URINE >100 /HPF (0-5); WBC,URINE 0-5 (RARE) /HPF (0-5)
--- NOTE | 2018-01-05 10:50 | NUR ---
PT UP FOR D/C AT THIS TIME. NO D/C PAPERWORK AVAILABLE AT THIS TIME.
[2018-01-05 11:30] VITALS: BP 138/89
--- NOTE | 2018-01-05 11:30 | NUR ---
Patient discharged with v/s stable. Written and verbal after care instructions given and explained. Patient alert, oriented and verbalized understanding of instructions. Wheel Chair Assisted with by caregiver. All questions addressed prior to discharge. ID band removed. Patient advised to follow up with PMD. Rx of Cephalexin given. Patient educated on indication of medication including possible reaction and side effects. Opportunity to ask questions provided and answered.
== END 2018-01-05 11:30 | disposition home or self-care (01) ==
LOC: MED 08:40
DX: N30.91 Cystitis, unspecified with hematuria (principal); Z86.73 Personal history of transient ischemic attack (TIA), and cerebral infarction without residual deficits; E78.5 Hyperlipidemia, unspecified; E11.9 Type 2 diabetes mellitus without complications; I10 Essential (primary) hypertension; Z88.5 Allergy status to narcotic agent; Z79.899 Other long term (current) drug therapy
CPT/HCPCS: 81001; 82948; 87086; 99284

== ENCOUNTER 2019-03-29 06:57 | Inpatient (IN) | payer OTHER ==
[~2019-03-29] VITALS: Ht 157.5 cm; Wt 108.9 kg
[~2019-03-29 06:57] MED LIST changes: +METF-1022 PO; -METF10004 PO; -ZIN220 PO; +ZINC220T4 PO
[2019-03-29 07:02] VITALS: BP 119/68
--- NOTE | 2019-03-29 07:11 | NUR ---
James rodas in ED - 03/29/19 at 0711 by MEDDM BIB WHEELCHAIR TO ER BED 11
--- NOTE | 2019-03-29 07:11 | NUR ---
PT W/C ASSISTED TO BED 11.
--- NOTE | 2019-03-29 07:12 | NUR ---
TAKEN TO BED 11 VIA WC; PUSHED BY DAUGHTER. SON CAME TO ASSIST PT TO PLACE IN GOWN AND IN BED.
--- NOTE | 2019-03-29 07:21 | NUR ---
ENDORSED TO CHARGE NURSE
[2019-03-29] MEDS ORDERED: NACL 0.9% 1,000 ML IV ONE (07:54)
[2019-03-29] MEDS ORDERED: LACTULOSE 20 GM/30 ML UDC PO ONE (07:55)
[2019-03-29] MEDS ORDERED: LORazepam 2 MG/ML VIAL IVP ONE (07:55)
--- NOTE | 2019-03-29 08:03 | NUR ---
C/O CONSTIPATION X3 WEEKS, PT STATES SHE HAS INTERMITTENT BOWEL MOVEMENTS THAT ARE FORMED AND HARD. PT DENIES PAIN. ABDOMEN FIRM AND NON TENDER TO LUQ/LLQ, AND RUQ/RLQ SOFT, AND NON TENDER TO PALPATION. BOWEL SOUNDS PRESENT X4. PT DENIES N/V/FEVER. REPORTS USING MIRALAX WITH NO RELIEF. BED IN LOWEST POSITION, SIDE RAIL UP X1. DAUGHTER AT BEDSIDE
[2019-03-29] MEDS ORDERED: LISI2.5T12 PO (09:27)
[2019-03-29 09:34] LABS: BASOPHILS % (AUTO) 0.5 % (0.0-2.0); EOSINOPHILS # (AUTO) 0.1 K/uL (0-0.4); EOSINOPHILS % (AUTO) 2.4 % (0.0-4.0); HEMATOCRIT 36.5 % (36-48); HEMOGLOBIN 11.7 g/dL (12.0-16.0); LYMPHOCYTES # (AUTO) 1.1 K/uL (2.5-16.5); LYMPHOCYTES % (AUTO) 19.7 % (20.5-51.1); MEAN CORPUSCULAR HEMOGLOBIN 31 pg (27-31); MEAN CORPUSCULAR HGB CONC 32 g/dL (33-37); MEAN CORPUSCULAR VOLUME 96.5 fL (80-94); MONOCYTES # (AUTO) 0.4 K/uL (0.8-1.0); MONOCYTES % (AUTO) 6.7 % (1.7-9.3); NEUTROPHILS % (AUTO) 70.7 % (42.2-75.2); PLATELET COUNT (AUTO) 218 K/uL (140-450); RED BLOOD CELL COUNT(AUTO) 3.78 MIL/uL (4.20-5.40); RED CELL DISTRIBUTION WIDTH 13.9 % (11.6-13.7); WHITE BLOOD COUNT (AUTO) 5.6 K/uL (4.8-10.8)
[2019-03-29 09:47] LABS: BILIRUBIN,URINE 1+ (NEGATIVE); BLOOD, URINE 3+ (NEGATIVE); COLOR,URINE YELLOW (YELLOW); LEUKOCYTE ESTERASE ,URINE 3+ (NEGATIVE); NITRITE, URINE NEGATIVE (NEGATIVE); PH,URINE 6.5 (5.0-9.0); UGLUCOSE NEGATIVE (NEGATIVE)
[2019-03-29 09:48] LABS: CARBON DIOXIDE 28.6 mmol/L (21-32); CREATININE 0.8 mg/dL (0.6-1.3); POTASSIUM 4.6 mmol/L (3.5-5.1)
[2019-03-29 09:50] LABS: PROTHROMBIN TIME 10.4 secs (10.8-13.4)
[2019-03-29 09:54] LABS: ALBUMIN 3.4 g/dL (3.4-5.0); TOTAL BILIRUBIN 0.4 mg/dL (0.0-1.0)
[2019-03-29 10:07] LABS: APPEARANCE,URINE HAZY (CLEAR)
[2019-03-29 10:09] LABS: WBC,URINE 60-80 /HPF (0-5)
[2019-03-29] MEDS ORDERED: PIPERACILLIN/TAZOBACTAM 3.375 GM in DEXTROSE 5% 50 ML IV ONE (10:40)
[2019-03-29] MEDS ORDERED: PIPERACILLIN/TAZOBACTAM 3.375 GM VIAL IV ONE (10:48)
[2019-03-29] MEDS ORDERED: KETOROLAC 30 MG/ML VIAL IVP PRN (11:00)
[2019-03-29] MEDS ORDERED: ONDANSETRON 4 MG/2 ML VIAL IM/IVP PRN (11:00)
[2019-03-29] MEDS ORDERED: DOCUSATE SODIUM 100 MG GELCAP PO PRN (11:00)
[2019-03-29 11:30] VITALS: BP 101/60
--- NOTE | 2019-03-29 11:30 | NUR ---
RECEIVED PT FROM ER NURSE, SHREYAS, ARRIVED BY SALVADOR, TRANSFERRED TO BED BY 4 PERSON TOTAL ASSIST. PT AOX4, ALL MEDICAL HX PROVIDED BY PT. R AC 22G IV, INTACT, ASYMPTOMATIC, PT ORIENTED TO ROOM AND UNIT, ABLE TO RETURN DEMONSTRATE PROPER USE OF CALL LIGHT, FALL PRECAUTIONS INITIATED, BED ALARM ON,
[2019-03-29] MEDS ORDERED: MAGNESIUM HYDROXIDE 2400 MG/30 ML UDC PO PRN (11:35)
--- NOTE | 2019-03-29 11:40 | NUR ---
Patient will be admitted to care of DR. BURCIAGA. Admited to MED SURGE. Will go to room 127B. Belongings list completed. Report to STEPHANIE LUTZ.
[2019-03-29] MEDS: NACL 0.9% 1,000 ML IV SCH ×2 (11:50→22:10)
[2019-03-29 12:10] LABS: MAGNESIUM 2.7 mg/dL (1.8-2.4); PHOSPHORUS 2.9 mg/dL (2.5-4.9); THYROID STIMULATING HORMONE 0.75 uIU/mL (0.34-3.74)
[2019-03-29 12:15] LABS: BARBITURATE, URINE NEG ng/ml (NEG <=200)
[2019-03-29 12:16] LABS: BENZODIAZEPINE, URINE NEG ng/mL (NEG <=200); CANNABINOID, URINE NEG ng/mL (NEG <=50); COCAINE, URINE NEG ng/mL (NEG <=300); OPIATE, URINE NEG ng/mL (NEG <=2000); PHENCYCLIDINE SCREEN,URINE NEG ng/mL (NEG <=25)
[2019-03-29] MEDS ORDERED: BISACODYL 10 MG SUPP RC SCH (12:45)
[2019-03-29] MEDS ORDERED: DEXTROSE 50% 50 ML SYR IVP PRN (13:20)
[2019-03-29] MEDS ORDERED: INSULIN LISPRO SLIDING SCALE 100 UNITS/ML VIAL SUBQ PRN (13:20)
--- NOTE | 2019-03-29 14:00 | NUR ---
PT RESTING IN BED. HELPED THE PT PLACED A CALL TO DAUGHTER, MANJEET. PT IS STABLE AND WITHOUT SIGNS OF DISTRESS. IV RUNNING NS @ 100ML/HR.
[2019-03-29 16:00] VITALS: BP 95/61
[2019-03-29] MEDS: ACETAMINOPHEN 325 MG TAB PO PRN (16:03)
[2019-03-29] MEDS: BLOOD GLUCOSE MONITORING 1 DEV DEV FS SCH ×2 (16:49→20:59)
[2019-03-29] MEDS ORDERED: metFORMIN 500 MG TAB PO SCH (17:00)
--- NOTE | 2019-03-29 18:15 | NUR ---
PT RESTING IN BED COMFORTABLY, PT IS VISITING WITH FAMILY. IV RUNNING 100 ML/HR, PT IS STABLE WITH NO SIGNS OF DISTRESS.
--- NOTE | 2019-03-29 19:15 | NUR ---
GAVE REPORT TO PM NURSE, MICHAEL. PT IS VISITING WITH FAMILY. PT PLACED ON 2 LITER 02, PER PT REQUEST SHE USES O2 AT HOME. CALL LIGHT WITHIN REACH.
--- NOTE | 2019-03-29 19:16 | NUR ---
RECEIVED PT ON BED, AAOX4, ABLE TO MAKE NEEDS KNOWN, DENIES ANY PAIN BUT STATED ABDOMINAL DISCOMFORT DUE TO CONSTIPATION, ABDOMINAL ROUND, SLIGHTLY DISTENDED, POSITIVE BOWEL SOUNDS, IVF INFUSING WELL, PLAN OF CARE DISCUSSED, SAFETY MEASURES IN PLACE, CALL LIGHT WITHIN REACH.
[2019-03-29] MEDS: MAGNESIUM HYDROXIDE 2400 MG/30 ML UDC PO SCH (20:14)
[2019-03-29] MEDS: DOCUSATE SODIUM 100 MG GELCAP PO SCH (20:15)
[2019-03-29] MEDS: GEMFIBROZIL 600 MG TAB PO SCH (20:15)
[2019-03-29] MEDS: Z-GUARD PASTE TP SCH (20:25)
--- NOTE | 2019-03-29 21:00 | NUR ---
BLOOD SUGAR CHECKED WITH 102 RESULT, DUE MEDS ADMINISTERED WITH EDUCATION PROVIDED, TOLERATED WELL, ALL NEEDS ATTENDED.
--- NOTE | 2019-03-29 22:11 | NUR ---
PT HAD BM WITH LARGE WELL FORMED MITTAL STOOL, PERINEAL CARE DONE BY STUDIO ASSISTANT, PT STATED FEELING BETTER, ABDOMEN SOFTER, REPOSITIONED PT AND OFFLOAD PRESSURE AREAS, MONITORED CLOSELY.
[2019-03-30] VITALS: BP 105/58
--- NOTE | 2019-03-30 | NUR ---
PT AWAKE, VITAL SIGNS STABLE, DENIES ANY PAIN, IVF INFUSING WELL, CONTINUE TO MONITOR CLOSELY.
--- NOTE | 2019-03-30 03:30 | NUR ---
PT INCONTINENT OF URINE SOMETIMES, PERINEAL CARE DONE, REPOSITIONED AND OFFLOAD PRESSURE AREAS, MONITORED CLOSELY.
--- NOTE | 2019-03-30 05:50 | NUR ---
BLOOD SUGAR CHECKED WITH 105 RESULT, DENIES ANY PAIN, WATCHING TV AT THIS TIME, CALL LIGHT WITHIN REACH.
[2019-03-30] MEDS: BLOOD GLUCOSE MONITORING 1 DEV DEV FS SCH ×4 (06:33→21:11)
--- NOTE | 2019-03-30 06:34 | NUR ---
PATIENT HAS BEEN SCREENED AND CATEGORIZED HIGH NUTRITION RISK. PATIENT WILL BE SEEN WITHIN 1-2 DAYS OF ADMISSION. 03/30/19-03/31/19 SAMY ARROYO MS, RDN
[2019-03-30 06:47] LABS: BASOPHILS % (AUTO) 0.5 % (0.0-2.0); EOSINOPHILS % (AUTO) 0.6 % (0.0-4.0); HEMATOCRIT 35.2 % (36-48); HEMOGLOBIN 11.2 g/dL (12.0-16.0); LYMPHOCYTES # (AUTO) 1.1 K/uL (2.5-16.5); LYMPHOCYTES % (AUTO) 15.8 % (20.5-51.1); MEAN CORPUSCULAR HEMOGLOBIN 31 pg (27-31); MEAN CORPUSCULAR HGB CONC 32 g/dL (33-37); MEAN CORPUSCULAR VOLUME 97.3 fL (80-94); MONOCYTES # (AUTO) 0.5 K/uL (0.8-1.0); MONOCYTES % (AUTO) 7.6 % (1.7-9.3); NEUTROPHILS # (AUTO) 5.4 K/uL (1.8-7.7); NEUTROPHILS % (AUTO) 75.5 % (42.2-75.2); PLATELET COUNT (AUTO) 214 K/uL (140-450); RED BLOOD CELL COUNT(AUTO) 3.62 MIL/uL (4.20-5.40); RED CELL DISTRIBUTION WIDTH 13.8 % (11.6-13.7); WHITE BLOOD COUNT (AUTO) 7.2 K/uL (4.8-10.8)
[2019-03-30 06:56] LABS: MAGNESIUM 3.1 mg/dL (1.8-2.4); PHOSPHORUS 3.9 mg/dL (2.5-4.9)
[2019-03-30 06:57] LABS: ANION GAP 15.1 (8-16); CARBON DIOXIDE 25.8 mmol/L (21-32); CREATININE 1.1 mg/dL (0.6-1.3); POTASSIUM 4.9 mmol/L (3.5-5.1)
[2019-03-30 06:59] LABS: CHOL/HDL RATIO 2.8 (1-4.5)
--- NOTE | 2019-03-30 07:10 | NUR ---
PT AWAKE, NO SIGNS OF DISTRESS, REPORT GIVEN TO STEPHANIE JEFFREY FOR CONTINUITY OF CARE.
--- NOTE | 2019-03-30 07:11 | NUR ---
REPORT RECEIVED BY PRODUCTION CONTROL ANALYST NURSE FOR CONTINUITY OF CARE. RESPIRATIONS EVEN AND UNLABORED, IV INTACT AND PATENT, SAFETY MEASURES IN PLACE, BED IN LOW POSITION, BED ALARM ON, CALL LIGHT AT BEDSIDE, WILL CONTINUE TO MONITOR.
[2019-03-30 08:00] VITALS: BP 98/55
--- NOTE | 2019-03-30 08:23 | NUR ---
(03/30/19) RD INITIAL ASSESSMENT COMPLETED PLEASE REFER TO NUTRITION ASSESSMENT UNDER CARE ACTIVITY FOR ESTIMATED NUTRITIONAL NEEDS. RD RECOMMENDATIONS: 1. CONTINUE ON CLEAR LIQUID DIET TOLERATED. 2. IF/WHEN MEDICALLY APPROPRIATE, CONSIDER ADVANCING DIET TO FULL LIQUID AND THEN TO REGULAR TOLERATED. 3. RECOMMEND MVI AND VITAMIN C FOR WOUND HEALING SUPPORT. 4. RD WILL F/U 2-3 DAYS; HIGH RISK. SAMY ARROYO MS, RDN
[2019-03-30] MEDS: ATORVASTATIN 20 MG TAB PO SCH (08:26)
[2019-03-30] MEDS: GEMFIBROZIL 600 MG TAB PO SCH ×2 (08:26→21:13)
[2019-03-30] MEDS: DOCUSATE SODIUM 100 MG GELCAP PO SCH ×2 (08:27→21:12)
[2019-03-30] MEDS: ASPIRIN 81 MG TAB.CHEW PO SCH (08:27)
[2019-03-30] MEDS: metFORMIN 500 MG TAB PO SCH (08:29)
[2019-03-30] MEDS: ACETAMINOPHEN 325 MG TAB PO PRN ×2 (08:29→19:42)
--- NOTE | 2019-03-30 08:30 | NUR ---
GAVE ORDERED DUE MEDICATIONS. PT TOLERATED WELL. BED IN LOW POSITION. CALL LIGHT AT BEDSIDE. BED ALARM ON. WILL CONTINUE TO MONITOR.
[2019-03-30] MEDS: LISINOPRIL 5 MG TAB PO SCH (09:00)
[2019-03-30] MEDS: NACL 0.9% 1,000 ML IV SCH ×2 (10:20→18:40)
[2019-03-30] MEDS: Z-GUARD PASTE TP SCH ×2 (10:20→22:28)
--- NOTE | 2019-03-30 10:45 | NUR ---
PT TALKING WITH FAMILY AT BEDSIDE. RESPIRATIONS EVEN AND UNLABORED. BED IN LOW POSITION. CALL LIGHT AT BEDSIDE. BED ALARM ON. WILL CONTINUE TO MONITOR.
--- NOTE | 2019-03-30 12:30 | NUR ---
PT EATING LUNCH AT THIS TIME. BED IN LOW POSITION. CALL LIGHT AT BEDSIDE. BED ALARM ON. WILL CONTINUE TO MONITOR.
[2019-03-30] MEDS ORDERED: BISACODYL 10 MG SUPP RC SCH (13:00)
--- NOTE | 2019-03-30 14:01 | NUR ---
PT SLEEPING AT THIS TIME. RESPIRATIONS EVEN AND UNLABORED. BED IN LOW POSITION. CALL LIGHT AT BEDSIDE. BED ALARM ON. WILL CONTINUE TO MONITOR.
[2019-03-30 16:00] VITALS: BP 103/52
--- NOTE | 2019-03-30 16:23 | NUR ---
PT WATCHING TV IN STABLE CONDITION. BED IN LOW POSITION. CALL LIGHT AT BEDSIDE. BED ALARM ON. WILL CONTINUE TO MONITOR.
--- NOTE | 2019-03-30 18:02 | NUR ---
PT EATING DINNER AT THIS TIME. BED IN LOW POSITION. CALL LIGHT AT BEDSIDE. BED ALARM ON. WILL CONTINUE TO MONITOR.
--- NOTE | 2019-03-30 19:15 | NUR ---
GAVE REPORT TO [employer] NURSE ALEKSANDAR FOR CONTINUITY OF CARE. PT IN STABLE CONDITION.
--- NOTE | 2019-03-30 19:17 | NUR ---
RECEIVED REPORT FROM AM SHIFT NURSE. PATIENT ALERT AND ORIENTED X3. NO APPARENT DISTRESS NOTED. IV ON RIGHT AC 22G RUNNING WITH IVF. BED ON LOW POSITION. CALL LIGHT WITHIN REACH. WILL CONTINUE TO MONITOR.
[2019-03-30] MEDS: MAGNESIUM HYDROXIDE 2400 MG/30 ML UDC PO SCH (21:13)
--- NOTE | 2019-03-30 21:13 | NUR ---
PATIENT ASLEEP IN BED. VISIBLE CHEST RISE AND FALL NOTED. NO APPARENT DISTRESS NOTED. WILL CONTINUE TO MONITOR.
--- NOTE | 2019-03-30 23:10 | NUR ---
PATIENT ASLEEP IN BED. NO APPARENT DISTRESS NOTED. VISIBLE CHEST RISE AND FALL NOTED. WILL CONTINUE TO MONITOR.
[2019-03-31] VITALS: BP 95/58
--- NOTE | 2019-03-31 01:10 | NUR ---
PATIENT ASLEEP IN BED. VISIBLE CHEST RISE AND FALL NOTED. NO APPARENT DISTRESS NOTED. WILL CONTINUE TO MONITOR.
--- NOTE | 2019-03-31 03:05 | NUR ---
PATIENT ASLEEP IN BED NO APPARENT DISTRESS NOTED. WILL CONTINUE TO MONITOR.
[2019-03-31] MEDS: NACL 0.9% 1,000 ML IV SCH (04:31)
--- NOTE | 2019-03-31 05:03 | NUR ---
PATIENT AWAKE IN BED. NO APPARENT DISTRESS NOTED. REPOSITIONED FOR COMFORT. WILL CONTINUE TO MONITOR.
[2019-03-31 06:12] LABS: BASOPHILS % (AUTO) 0.8 % (0.0-2.0); EOSINOPHILS # (AUTO) 0.1 K/uL (0-0.4); EOSINOPHILS % (AUTO) 2.9 % (0.0-4.0); HEMATOCRIT 25.8 % (36-48); HEMOGLOBIN 8.3 g/dL (12.0-16.0); LYMPHOCYTES # (AUTO) 0.8 K/uL (2.5-16.5); LYMPHOCYTES % (AUTO) 24.4 % (20.5-51.1); MEAN CORPUSCULAR HEMOGLOBIN 32 pg (27-31); MEAN CORPUSCULAR HGB CONC 32 g/dL (33-37); MEAN CORPUSCULAR VOLUME 99.4 fL (80-94); MONOCYTES # (AUTO) 0.3 K/uL (0.8-1.0); MONOCYTES % (AUTO) 8.8 % (1.7-9.3); NEUTROPHILS # (AUTO) 2.2 K/uL (1.8-7.7); NEUTROPHILS % (AUTO) 63.1 % (42.2-75.2); PLATELET COUNT (AUTO) 139 K/uL (140-450); RED CELL DISTRIBUTION WIDTH 14.2 % (11.6-13.7); WHITE BLOOD COUNT (AUTO) 3.4 K/uL (4.8-10.8)
[2019-03-31] MEDS: BLOOD GLUCOSE MONITORING 1 DEV DEV FS SCH ×4 (06:26→20:50)
[2019-03-31 06:42] LABS: ANION GAP 12.8 (8-16); CARBON DIOXIDE 20.2 mmol/L (21-32); CREATININE 0.6 mg/dL (0.6-1.3)
[2019-03-31 06:45] LABS: MAGNESIUM 2.2 mg/dL (1.8-2.4); PHOSPHORUS 2.8 mg/dL (2.5-4.9)
--- NOTE | 2019-03-31 07:00 | NUR ---
PATIENT AWAKE IN BED. REPOSITIONED FOR COMFORT. BED ON LOW POSITION. WILL CONTINUE TO MONITOR.
--- NOTE | 2019-03-31 07:15 | NUR ---
ENDORSED TO AM SHIFT NURSE IN STABLE CONDITION.
--- NOTE | 2019-03-31 07:17 | NUR ---
RECEIVED BEDSIDE REPORT FROM NIGHTSHIFT NURSE FOR CONTINUATION OF CARE. PATIENT WAS AAOX4 WITH NO COMPLAINTS OF PAIN OR DISCOMFORT. SKIN WARM AND DRY TO TOUCH. SACRAL WOUND NOTE COVERED WITH Z GUARD. RESPIRATIONS EVEN AND UNLABORED WITH NO SOB OR RESPIRATORY DISTRESS. IV ON R HAND 22 G INFUSING NS AT 100ML/HR PER MD ORDER. PT IS ON BEDREST AND INCONTINENT. SAFETY MEASURES IN PLACE: HOB ELEVATED, BED IN LOWEST POSITION, CALL LIGHT WITHIN REACH. PATIENT EDUCATED ON HOW TO USE CALL LIGHT. FREQUENT CHECKS MADE. WILL CONTINUE TO MONITOR
[2019-03-31 08:13] VITALS: BP 103/61
[2019-03-31] MEDS: LISINOPRIL 5 MG TAB PO SCH (09:00)
--- NOTE | 2019-03-31 09:50 | NUR ---
IV INFILTRATED, DC IV AND CANNULA INTACT, MINIMAL BLEEDING AT IV SITE. STARTED NEW IV ON L WRIST 24G, PATIENT TOLERATED WELL. CONTINUE INFUSING PER MD ORDER. PATIENT IS AWAKE AND RESTING ON BED AT THIS TIME. NO SIGNS OF DISTRESS NOTE. SAFETY MEASURES IN PLACE. BED IN LOW POSITION AND CALL LIGHT WITHIN REACH. BED ALARM ACTIVATED.
[2019-03-31] MEDS ORDERED: BISACODYL 10 MG SUPP RC SCH (10:00)
[2019-03-31] MEDS: ATORVASTATIN 20 MG TAB PO SCH (10:08)
[2019-03-31] MEDS: DOCUSATE SODIUM 100 MG GELCAP PO SCH ×2 (10:08→20:56)
[2019-03-31] MEDS: GEMFIBROZIL 600 MG TAB PO SCH ×2 (10:08→20:56)
[2019-03-31] MEDS: ASPIRIN 81 MG TAB.CHEW PO SCH (10:09)
[2019-03-31] MEDS: metFORMIN 500 MG TAB PO SCH (10:09)
[2019-03-31] MEDS: Z-GUARD PASTE TP SCH ×2 (10:10→21:00)
--- NOTE | 2019-03-31 10:11 | NUR ---
ADMINISTERED MEDICATION. TOLERATED WELL. ABLE TO MAKE NEEDS KNOWN. NO COMPLAINTS OF PAIN OR DISCOMFORT. PATIENT IN BED, AWAKE AND ALERT WATCHING TV. SAFETY MEASURES PERFORMED: HOB ELEVATED, BED IN LOW POSITION, CALL LIGHT WITHIN REACH. WILL CONTINUE TO MONITOR.
--- NOTE | 2019-03-31 11:11 | NUR ---
PATIENT HAS ONE MEDIUM SOFT BM, MONUMENT CARVER IS CHANGING AND CLEANING PATIENT. Z-GUARD WILL BE APPLIED ON SACRAL AFTER CLEANING. NO SIGNS OF DISTRESS NOTED. SAFETY MEASURES IN PLACE.
[2019-03-31] MEDS ORDERED: POLYETHYLENE GLYCOL 17 GM/PKT PO SCH (12:00)
[2019-03-31] MEDS ORDERED: POTASSIUM CHLORIDE 40 MEQ, LIDOCAINE MPF 1% 25 MG in NACL 0.9% 250 ML IV SCH (12:30)
--- NOTE | 2019-03-31 12:39 | NUR ---
ADMINISTERED MEDS PER MD ORDER, MEDS EDUCATION PROVIDED TO PATIENT AT BEDSIDE, AND PATIENT VERBALIZED UNDERSTANDING. PATIENT IS AWAKE AND RESTING ON BED AT THIS TIME. NO SIGNS OF DISTRESS NOTED. SAFETY MEASURES IN PLACE. BED ALARM ACTIVATED.
--- NOTE | 2019-03-31 13:04 | NUR ---
Recruiting Assistant Assessment/Discharge Plan: Name: Anuradha Johnson Home Relationship: daughter Pre-Admission Living Arrangements: Lives with Other Other: Anuradha Johnson and patient's two sisters Prior ADL Independent Current Home Health Name/Tel: N/A Current DME/02 Name/Tel: prn home O2, wheelchair, hospital bed Current Hospice Name/Tel: N/A Current Dialysis Name/Tel: N/A Healthcare Decision Maker: Patient Advance Directive No Information Taught: Advance Directive Community Resources Person Taught: Patient Teaching Tools: Community Resources Computer Generated Print Verbal Factors Affecting Learning: None Participation Level: Active Evaluation: Gestures Understanding Verbalizes Understanding Educator: MARITZA Zaman Discipline: Case Mgt/Social Svcs Tentative Discharge Plan Summary: Patient is a 68 year old female admitted for fecal impaction and abdominal pain. I met with patient at bedside. Patient alert and oriented x4. Patient lives at home with her family and plans to return home upon discharge. Patient's pcp is Stephen Mccain and does not have any difficulty filling her prescriptions at pharmacy. She follows up with every 3-4 months. Patient had a stroke about 3 years ago. Patient's family assist her with ADLs. Either her daughter Anuradha or patient's son Ramakrishna assist patient with transportation. Patient denied hx of mental health. Patient also denied alcohol/substance abuse. Patient does not have an existing Advance Directive. I provided patient with education on Advance Directive. I also provided her with a blank Advance Directive. I provided patient with community resources for home care. Recruiting Assistant and/or Value Stream Leader will follow up as needed. Signature: MARITZA Zaman Date: Mar 31, 2019
--- NOTE | 2019-03-31 13:20 | NUR ---
ASSESSED PATIENT'S WOUND, CLEANSED WITH NS AND APPLIED Z-GUARD. OFF LOADED PRESSURE WITH PILLOWS AND PATIENT TOLERATED WELL. SAFETY MEASURES IN PLACE. BED IN LOW POSITION AND CALL LIGHT WITHIN REACH.
[2019-03-31] MEDS: NACL 0.45% 1,000 ML IV SCH (15:31)
--- NOTE | 2019-03-31 15:31 | NUR ---
ADMINISTERED MEDS VIA IVPB PER MD ORDER, MED EDUCATION PROVIDED TO PATIENT AND PATIENT VERBALIZED UNDERSTANDING. PATIENT AWAKE AND RESTING ON BED AT THIS TIME. NO SIGNS OF DISTRESS NOTED. SAFETY MEASURES IN PLACE. BED IN LOW POSITION AND CALL LIGHT WITHIN REACH. BED ALARM ACTIVATED.
[2019-03-31 16:00] VITALS: BP 107/57
[2019-03-31] MEDS ORDERED: MINERAL OIL 135 ML ENEM RC SCH (16:00)
--- NOTE | 2019-03-31 16:23 | NUR ---
WITH ASSIST FROM WORKERS COMPENSATION CONSULTANT, ADMINISTERED ENEMA, MED EDUCATION PROVIDED TO PATIENT AND PATIENT TOLERATED WELL. PATIENT HAD A LARGE SOFT BM FOLLOW THE ENEMA. WORKERS COMPENSATION CONSULTANT IS CHANGING AND CLEANING PATIENT AT THIS TIME. NO SIGNS OF DISTRESS NOTED. SAFETY MEASURES IN PLACE.
--- NOTE | 2019-03-31 16:53 | NUR ---
PATIENT AWAKE AND TALKING TO DAUGHTER MANJEET BY BEDSIDE. NO SIGNS OF DISTRESS NOTED. SAFETY MEASURES IN PLACE.
--- NOTE | 2019-03-31 17:45 | NUR ---
PATIENT AWAKE AND RESTING ON BED. DAUGHTER MANJEET BY BEDSIDE. NO SIGNS OF DISTRESS NOTED. SAFETY MEASURES IN PLACE. BED ALARM ACTIVATED.
--- NOTE | 2019-03-31 19:26 | NUR ---
ENDORSED TO NIGHTSHIFT NURSE AT BEDSIDE. PT IS STABLE AND AWAKE IN BED.
--- NOTE | 2019-03-31 19:30 | NUR ---
RECEIVED PT FROM ARNOL RN PT IS AAOX4 ON BED REST LEFT SIDE WEAKNESS IV ON LEFT WRIST INFUSING WELL, NOT ABD PAIN NOTED PT ALREADY HAD A BM INITIAL ASSESSMENT DONE
[2019-03-31 20:00] VITALS: BP 90/50
[2019-03-31] MEDS: MAGNESIUM HYDROXIDE 2400 MG/30 ML UDC PO SCH (20:54)
[2019-03-31] MEDS: CALCIUM CARB 600 MG TAB PO SCH (20:55)
--- NOTE | 2019-03-31 21:27 | NUR ---
BLOOD SUGAR TEST 90, P REPOSITIONED Q 2H
[2019-04-01] VITALS: BP 125/69
--- NOTE | 2019-04-01 | NUR ---
PT REPOSITIONED Q2H, PT INCONTINENT LINEN CHANGED, NOT DISTRESS NOTED AT THIS TIME
--- NOTE | 2019-04-01 04:00 | NUR ---
PT HAS 3 BM SEMILIQUID, DENIES ANY PAIN ON CLOSE MONITORING , PT HAS BEEN REPOSITIONED Q2HNOT DISTRESS NOTED
[2019-04-01] MEDS: NACL 0.45% 1,000 ML IV SCH ×2 (05:52→17:21)
[2019-04-01 05:53] LABS: BASOPHILS % (AUTO) 0.9 % (0.0-2.0); EOSINOPHILS # (AUTO) 0.1 K/uL (0-0.4); EOSINOPHILS % (AUTO) 4.4 % (0.0-4.0); HEMATOCRIT 28.2 % (36-48); LYMPHOCYTES # (AUTO) 1.1 K/uL (2.5-16.5); LYMPHOCYTES % (AUTO) 33.8 % (20.5-51.1); MEAN CORPUSCULAR HEMOGLOBIN 32 pg (27-31); MEAN CORPUSCULAR HGB CONC 32 g/dL (33-37); MEAN CORPUSCULAR VOLUME 98.1 fL (80-94); MONOCYTES # (AUTO) 0.3 K/uL (0.8-1.0); MONOCYTES % (AUTO) 8.3 % (1.7-9.3); NEUTROPHILS # (AUTO) 1.6 K/uL (1.8-7.7); NEUTROPHILS % (AUTO) 52.6 % (42.2-75.2); PLATELET COUNT (AUTO) 164 K/uL (140-450); RED BLOOD CELL COUNT(AUTO) 2.87 MIL/uL (4.20-5.40); WHITE BLOOD COUNT (AUTO) 3.1 K/uL (4.8-10.8)
[2019-04-01] MEDS: BLOOD GLUCOSE MONITORING 1 DEV DEV FS SCH ×4 (06:00→22:26)
[2019-04-01 06:09] LABS: ANION GAP 10.8 (8-16); CARBON DIOXIDE 26.7 mmol/L (21-32); CREATININE 0.7 mg/dL (0.6-1.3); POTASSIUM 4.5 mmol/L (3.5-5.1)
--- NOTE | 2019-04-01 06:10 | NUR ---
BLOOD SUGAR TTEST 73 CLEAR JUICE GIVEN ORDER PT DENIES ANY DISCOMFORT AT THIS TIME
--- NOTE | 2019-04-01 07:00 | NUR ---
RECEIVED REPORT FROM NIGHTSHIFT NURSE. PATIENT IN STABLE CONDITION. AWAKE AND ALERT UPON ARRIVAL. NO SIGNS OF DISCOMFORT OR DISTRESS NOTED AT THIS TIME. SAFETY MEASURES: HOB ELEVATED, BED IN LOWEST POSITION, AND CALL LIGHT WITHIN REACH.
[2019-04-01 08:00] VITALS: BP 101/52
--- NOTE | 2019-04-01 08:50 | NUR ---
OVERHAULER HELPER IS CLEANING AND CHANGING PATIENT, PATIENT HAS ONE MEDIUM SOFT BM. PATIENT TOLERATED WELL. NO SIGNS OF DISTRESS NOTED. BED IN LOW POSITION AND CALL LIGHT WITHIN REACH.
[2019-04-01] MEDS: LISINOPRIL 5 MG TAB PO SCH (09:00)
[2019-04-01] MEDS: POLYETHYLENE GLYCOL 17 GM/PKT PO SCH (09:07)
[2019-04-01] MEDS: DOCUSATE SODIUM 100 MG GELCAP PO SCH ×2 (09:08→21:52)
[2019-04-01] MEDS: CALCIUM CARB 600 MG TAB PO SCH ×2 (09:08→21:52)
[2019-04-01] MEDS: ASPIRIN 81 MG TAB.CHEW PO SCH (09:08)
[2019-04-01] MEDS: SENNA 8.6 MG TAB PO SCH (09:08)
[2019-04-01] MEDS: metFORMIN 500 MG TAB PO SCH (09:08)
[2019-04-01] MEDS: ATORVASTATIN 20 MG TAB PO SCH (09:09)
[2019-04-01] MEDS: Z-GUARD PASTE TP SCH ×2 (09:12→21:53)
[2019-04-01] MEDS: GEMFIBROZIL 600 MG TAB PO SCH ×2 (09:15→21:52)
--- NOTE | 2019-04-01 09:18 | NUR ---
ADMINISTERED MEDICATION PRESCRIBED PER MD. LISINOPRIL WAS HELD DUE TO BLOOD PRESSURE BEING 109/43. NO COMPLICATIONS TAKING MEDICATION AT THIS TIME. NO SIGNS OF DISTRESS AT THIS MOMENT
--- NOTE | 2019-04-01 11:07 | NUR ---
DC PLANNIN68 Y/O FEMALE PATIENT FROM HOME. ADMITTED DUE TO CONSTIPATION X3 DAYS, WITH INITIAL DIAGNOSIS OF FECAL IMPACTION. PAST MEDICAL HISTORY INCLUDE HEMORRHAGIC STROKE, HTN, DM AND VIT D DEFICIENCY. WBC 3.1. ON CEFTRIAXONE 1000MG Q24H. NO CONSULTS AT THIS TIME. CT OF ABD SHOWED MASSIVE AMOUNT OF STOOL IN THE DISTAL RECTOSIGMOID AND RECTUM CONSISTENT WITH FECAL IMPACTION. PATIENT IS CURRENTLY ON MIRALX, COLACE AND MILK OF MAGNESIA. DC PLAN PENDING ON PATIENT'S RESPONSE TO TREATMENT. Addendum: 04/02/19 at 1343 by Zoya Dash CM STILL ON ROCEPHIN. ENEMA WAS GIVEN, PATIENT HAD A LARGE BM. KUB WAS DONE, AWAITING FOR RESULTS. CM WILL FOLLOW UP.
--- NOTE | 2019-04-01 11:49 | NUR ---
PT IS RESTING IN BED AND HAS NO SIGNS OF DISTRESS. ABLE TO MAKE NEEDS KNOWN. NO COMPLAINTS OF PAIN OR DISCOMFORT.
--- NOTE | 2019-04-01 13:18 | NUR ---
ASSESSED WOUND AND PROVIDED WOUND CARE. APPLIED Z-GUARD ON SACRAL AREA. PT TOLERATED WELL. SKIN CARE EDUCATION PROVIDED TO PATIENT. PT VERBALIZED UNDERSTANDING. OFF LOAD PRESSURE WITH PILLOW. NO SIGNS OF DISTRESS. SAFETY MEASURES IN PLACE: HOB ELEVATED, BED IN LOWEST POSITION, CALL LIGHT WITHIN REACH. BED ALARM ACTIVATED.
--- NOTE | 2019-04-01 14:24 | NUR ---
04/01/19 RD FOLLOW UP COMPLETED PLEASE REFER TO NUTRITION ASSESSMENT UNDER CARE ACTIVITY FOR ESTIMATED NUTRITIONAL NEEDS. 1. RECOMMEND ENSURE CLEAR TID WITH CLEAR LIQUID DIET TOLERATED 2. CONSIDER ADVANCING DIET TO HIGH FIBER, CCHO 60GM AND CARDIAC WHEN MEDICALLY STABLE 3. RD TO FOLLOW-UP 2-3 DAYS, HIGH RISK BRADEN LIRA RD
--- NOTE | 2019-04-01 14:24 | NUR ---
ADMINISTERED MEDICATION PRESCRIBED BY MD. PATIENT TOLERATED WELL. PT EDUCATED ON MEDICATION REGIME. PT IS ABLE TO VERBALIZE UNDERSTANDING. PT IS STABLE IN BED WATCHING TV WITH THE LIGHTS DIMMED AND FAMILY IS AT BEDSIDE. SAFETY MEASURES: HOB ELEVATED, BED IN LOWEST POSITION, AND CALL LIGHT WITHIN REACH.
--- NOTE | 2019-04-01 14:31 | NUR ---
PATIENT AWAKE AND TALKING TO DAUGHTER MANJEET AND VISITORS BY BEDSIDE. NO SIGNS OF DISTRESS. SAFETY MEASURES IN PLACE. BED ALARM ACTIVATED.
--- NOTE | 2019-04-01 15:27 | NUR ---
PATIENT ALERT AND AWAKE IN BED. FAMILY IS PRESENT AT BEDSIDE. PATIENT IS SHOWING NO SIGNS OR SYMPTOMS OF DISTRESS. SAFETY MEASURES IN PLACE: HOB ELEVATED, BED IN LOWEST POSITION, CALL LIGHT WITHIN REACH.
[2019-04-01 16:00] VITALS: BP 110/54
--- NOTE | 2019-04-01 16:32 | NUR ---
PATIENT HAS A LARGE SOFT BROWN BM, ASSISTED PRODUCE DEPARTMENT SUPERVISOR TO CHANGE AND CLEAN PATIENT. APPLIED Z-GUARD ON SACRAL AREA AND OFF LOADED PRESSURE WITH PILLOWS ON SACRAL, LEGS AND BACK. PATIENT TOLERATED WELL. PATIENT AWAKE AND WATCHING TV ON BED AT THIS TIME. NO SIGNS OF DISTRESS NOTED. SAFETY MEASURES IN PLACE. BED IN LOW POSITION AND CALL LIGHT WITHIN REACH. BED ALARM ACTIVATED. INSTRUCTED PATIENT TO USE THE CALL LIGHT FOR ANY ASSISTANCE AND PATIENT WAS AWARE.
--- NOTE | 2019-04-01 16:51 | NUR ---
PROVIDED PATIENT WITH ORANGE JUICE. PATIENT DENIED ANY LIGHTHEADEDNESS, NAUSEA AND VOMITING. PATIENT IS AWAKE AND TALKING ON HER PHONE. NO SIGNS OF DISTRESS NOTED. SAFETY MEASURES IN PLACE. BED IN LOW POSITION AND CALL LIGHT WITHIN REACH. BED ALARM ACTIVATED. INSTRUCTED PATIENT TO USE THE CALL LIGHT FOR ANY ASSISTANCE AND PATIENT WAS AWARE.
--- NOTE | 2019-04-01 17:24 | NUR ---
ADMINISTERED MEDICATION PRESCRIBED BY MD. PATIENT TOLERATED WELL. NO SIGNS AND SYMPTOMS OF DISTRESS. MEDICATION REGIME TAUGHT TO PATIENT. ABLE TO VERBALLY TEACH BACK. PATIENT IS RELAXING IN BED WATCHING TV.
--- NOTE | 2019-04-01 17:38 | NUR ---
PATIENT IS TALKING TO SON LINDA BY BEDSIDE. NO SIGNS OF DISTRESS NOTED. SAFETY MEASURES IN PLACE. BED ALARM ACTIVATED.
--- NOTE | 2019-04-01 18:52 | NUR ---
PATIENT RESTING IN BED WITH FAMILY AT BEDSIDE. ADMINISTERED MEDICATION PRESCRIBED BY MD. SUPPOSITORY ADMINISTERED WELL. DEFENCE FORCE MEMBER OTHER RANKS HELPED, CLEAN, TURN, AND REPOSITION PATIENT. PATIENT TOLERATED MEDICATIONS. NO SIGNS AND SYMPTOMS OF DISTRESS. SAFETY MEASURES TAKEN: HOB ELEVATED, BED IN LOWEST POSITION, AND CALL LIGHT WITHIN REACH.
--- NOTE | 2019-04-01 19:08 | NUR ---
ENDORSED TO NIGHTSHIFT NURSE AT BEDSIDE. PATIENT WAS AWAKE AND WATCHING TV AT THIS TIME. NO SIGNS OF DISTRESS NOTED. PATIENT IN STABLE CONDITION. BED ALARM ACTIVATED.
--- NOTE | 2019-04-01 19:10 | NUR ---
Received endorsement from AM shift RN; patient A/Ox4, able to make needs known, Mongolian speaking, on bedrest. Patient talking with relatives; introduced self, updated board. No SOB or distress noted, on O2 2LPM via nasal cannula. Bed in the lowest position, call light within reach. Initial assessment done. Will continue to monitor.
[2019-04-01] MEDS ORDERED: BISACODYL 10 MG SUPP RC SCH (19:30)
[2019-04-01] MEDS ORDERED: BISACODYL 5 MG TABEC PO SCH (19:30)
[2019-04-01] MEDS ORDERED: MINERAL OIL 135 ML ENEM RC SCH (20:00)
[2019-04-01] MEDS: MAGNESIUM HYDROXIDE 2400 MG/30 ML UDC PO SCH (21:52)
--- NOTE | 2019-04-01 22:20 | NUR ---
Rounds done; patient asleep, visible chest rise and fall noted.
--- NOTE | 2019-04-01 22:55 | NUR ---
Due meds given, tolerated well.
--- NOTE | 2019-04-01 23:30 | NUR ---
Patient noted with large BM at this time. Patient cleaned, chux and linens changed.
[2019-04-02] VITALS: BP 98/55
--- NOTE | 2019-04-02 02:46 | NUR ---
Rounds done; patient asleep, eyes closed, visible chest rise and fall noted.
[2019-04-02] MEDS: NACL 0.45% 1,000 ML IV SCH ×2 (04:29→16:15)
--- NOTE | 2019-04-02 04:55 | NUR ---
Patient noted with large BM at this time. Patient cleaned, chux and linens changed.
[2019-04-02] MEDS: BLOOD GLUCOSE MONITORING 1 DEV DEV FS SCH ×2 (05:37→12:30)
[2019-04-02 06:15] LABS: BASOPHILS % (AUTO) 1.2 % (0.0-2.0); EOSINOPHILS # (AUTO) 0.2 K/uL (0-0.4); EOSINOPHILS % (AUTO) 5.7 % (0.0-4.0); HEMATOCRIT 27.3 % (36-48); HEMOGLOBIN 8.8 g/dL (12.0-16.0); LYMPHOCYTES # (AUTO) 0.9 K/uL (2.5-16.5); LYMPHOCYTES % (AUTO) 31.7 % (20.5-51.1); MEAN CORPUSCULAR HEMOGLOBIN 31 pg (27-31); MEAN CORPUSCULAR HGB CONC 32 g/dL (33-37); MEAN CORPUSCULAR VOLUME 97.2 fL (80-94); MONOCYTES # (AUTO) 0.3 K/uL (0.8-1.0); NEUTROPHILS # (AUTO) 1.5 K/uL (1.8-7.7); NEUTROPHILS % (AUTO) 52.4 % (42.2-75.2); PLATELET COUNT (AUTO) 173 K/uL (140-450); RED BLOOD CELL COUNT(AUTO) 2.81 MIL/uL (4.20-5.40); RED CELL DISTRIBUTION WIDTH 13.9 % (11.6-13.7); WHITE BLOOD COUNT (AUTO) 2.9 K/uL (4.8-10.8)
--- NOTE | 2019-04-02 06:26 | NUR ---
Vitals stable, due meds given. Will endorse to AM shift RM for continuity of care.
[2019-04-02 06:32] LABS: ANION GAP 11.2 (8-16); CARBON DIOXIDE 27.9 mmol/L (21-32); CREATININE 0.7 mg/dL (0.6-1.3); POTASSIUM 4.1 mmol/L (3.5-5.1)
[2019-04-02 06:53] LABS: PHOSPHORUS 2.5 mg/dL (2.5-4.9)
[2019-04-02 08:00] VITALS: BP 111/59
[2019-04-02] MEDS ORDERED: SODIUM PHOSPHATE 118 ML ENEM RC SCH (08:00)
[2019-04-02] MEDS ORDERED: BOWEL EVACUANT DRINK 4,000 ML PDS PO SCH (08:00)
[2019-04-02] MEDS: LISINOPRIL 5 MG TAB PO SCH (09:00)
--- NOTE | 2019-04-02 09:15 | NUR ---
SOAP SUDS ENEMA GIVEN. PATIENT TOLERATED IT. CALL LIGHT WITHIN REACH. WILL CONTINUE TO MONITOR PATIENT.
[2019-04-02] MEDS: POLYETHYLENE GLYCOL 17 GM/PKT PO SCH (09:37)
[2019-04-02] MEDS: ASPIRIN 81 MG TAB.CHEW PO SCH (09:39)
[2019-04-02] MEDS: GEMFIBROZIL 600 MG TAB PO SCH (09:39)
[2019-04-02] MEDS: SENNA 8.6 MG TAB PO SCH (09:39)
[2019-04-02] MEDS: ATORVASTATIN 20 MG TAB PO SCH (09:39)
[2019-04-02] MEDS: CALCIUM CARB 600 MG TAB PO SCH (09:39)
[2019-04-02] MEDS: metFORMIN 500 MG TAB PO SCH (09:39)
[2019-04-02] MEDS: DOCUSATE SODIUM 100 MG GELCAP PO SCH (09:39)
--- NOTE | 2019-04-02 09:39 | NUR ---
PATIENT HAD LARGE, BROWN, SOFT AND WATERY BM, PATIENT CLEANED UP AND CHANGED. ZGUARD APPLIED ORDERED. PATIENT TOLERATED IT WELL. ORDERED MEDICATIONS GIVEN. PATIENT TOLERATED THEM WELL. NO COMPLAINTS AT THIS TIME. PATIENT DENIES PAIN. SAFETY PRECAUTIONS IN PLACE, CALL LIGHT WITHIN REACH. WILL CONTINUE TO MONITOR PATIENT.
[2019-04-02] MEDS: Z-GUARD PASTE TP SCH (09:44)
--- NOTE | 2019-04-02 13:20 | NUR ---
PATIENT HAD LARGE, BROWN, SOFT AND WATERY BM, PATIENT CLEANED UP AND CHANGED. ZGUARD APPLIED ORDERED. PATIENT TOLERATED IT WELL. INFORM PATIENT DISCHARGE WILL BE PENDING KUB RESULTS. PATIENT VERBALIZED UNDERSTANDING. NO COMPLAINTS AT THIS TIME. PATIENT DENIES PAIN. SAFETY PRECAUTIONS IN PLACE, CALL LIGHT WITHIN REACH. WILL CONTINUE TO MONITOR PATIENT.
[2019-04-02] MEDS ORDERED: DOCU-299 PO (13:46)
[2019-04-02] MEDS ORDERED: SENN-74 PO (13:46)
[2019-04-02] MEDS ORDERED: PSYL0.5220 PO (13:46)
[2019-04-02] MEDS ORDERED: POLY17PD46 PO (13:46)
[2019-04-02] MEDS ORDERED: METF500T PO (13:46)
[2019-04-02] MEDS ORDERED: MOM PO (13:46)
[2019-04-02 15:52] VITALS: BP 103/59
--- NOTE | 2019-04-02 16:50 | NUR ---
DISCHARGE INSTRUCTIONS AND EDUCATION GIVEN TO PATIENT AND FAMILY AT BEDSIDE. THEY VERBALIZED UNDERSTANDING ABOUT NEW MEDICATIONS, MD FOLLOW UP, AND TO GO TO ER IF ANY ABNORMAL SIDE EFFECTS. PATIENT REFUSING PNA VACCINE BECAUSE SHE WILL SEE HER PCP NEXT WEEK. IV REMOVED, IV CATHETER INTACT, MINIMAL BLEEDING NOTED. ID BANDS CUT. PATIENT WILL NOW BE CHANGED SO THAT SHE CAN BE DISCHARGED HOME.
--- NOTE | 2019-04-02 17:00 | NUR ---
PATIENT WHEELED OFF FLOOR BY FAMILY MEMBERS. PATIENT IN STABLE CONDITION. TOOK ALL HER BELONGINGS WITH HER.
== END 2019-04-02 17:00 | disposition home or self-care (01) | DRG 389 ==
LOC: MED 06:57 → MMU 10:59
PROVIDERS: ADMIT General Practice; ATTEND General Practice
DX: K56.41 Fecal impaction (principal); N12 Tubulo-interstitial nephritis, not specified as acute or chronic; E87.0 Hyperosmolality and hypernatremia; Z68.41 Body mass index [BMI] 40.0-44.9, adult; E66.01 Morbid (severe) obesity due to excess calories; E11.9 Type 2 diabetes mellitus without complications; I10 Essential (primary) hypertension; E78.5 Hyperlipidemia, unspecified; E83.41 Hypermagnesemia; D64.9 Anemia, unspecified; E83.51 Hypocalcemia; E87.6 Hypokalemia; D63.8 Anemia in other chronic diseases classified elsewhere; N28.1 Cyst of kidney, acquired; Z71.3 Dietary counseling and surveillance; Z86.73 Personal history of transient ischemic attack (TIA), and cerebral infarction without residual deficits; Z88.5 Allergy status to narcotic agent; I25.2 Old myocardial infarction; Z83.3 Family history of diabetes mellitus; Z82.49 Family history of ischemic heart disease and other diseases of the circulatory system
CPT/HCPCS: 36415; 71045; 74018; 74250; 80048; 80053; 80305; 81001; 82150; 82948; 83036; 83690; 83735; 83880; 84100; 84443; 84484; 85025; 85610; 85730; 87081; 87086; 87186; 93005; 96361; 96365; 96375; 99285; J0696; J1644; J1815; J2001; J2060; J2543; J3480; J7030; J7060; Q0092

== ENCOUNTER 2019-06-26 13:39 | Emergency (ER) | payer OTHER ==
[~2019-06-26] VITALS: Ht 157.5 cm; Wt 99.8 kg
[~2019-06-26 13:39] MED LIST changes: -ALBU3SOL83 IH; -LISI10TA11 PO; +LISI2.5T12 PO; -LORA10TA19 PO; -METF-1022 PO; +METF500T PO; -METO-485 PO; -METO25TA PO; +MOM PO; +POLY17PD46 PO; +PSYL0.5220 PO; -SENN-73 PO; +SENN-74 PO; -SPIR25TA PO; -ZINC220T4 PO
[2019-06-26 13:51] VITALS: BP 128/70
--- NOTE | 2019-06-26 14:12 | NUR ---
69 Y/O FEMALE PRESENTS WITH PALPITATIONS X3 DAYS. PATIENT IS WHEELCHAIR BOUND AND HAS BEEN FEELING LIKE HER HEART IS RACING FOR THE PAST THREE DAYS. DENIES ANY RECENT ILLNESS. DENIES ANY CP/ COB. LUNG SOUNDS ARE CLEAR IN BILATLOBES. BOWEL SOUNDS NORMO ACTIVE IN ALL QUADRANTS. SKIN IS DRY/COOL/ IN TACT. NO DISTRESS NOTED AT THIS TIME. PATIENT USES 02 AT HOME, NC 2L. AAOX3. LEFT SIDE DEFICIT NOTED DUE TO PREVIOUS STROKE. PMH: STROKE/WY/HTN/DM ALLERGIES: CODEINE
[2019-06-26] MEDS ORDERED: DILTIAZEM 25 MG/5 ML VIAL IVP ONE (14:15)
[2019-06-26] MEDS ORDERED: NACL 0.9% 1,000 ML IV ONE (14:25)
--- NOTE | 2019-06-26 14:41 | NUR ---
NOTIFIED ERMD ABOUT PT BP: 106/65, ERMD ADVISED TO CONTINUE WITH DILTIAZEM IVP.
[2019-06-26 14:59] LABS: BASOPHILS % (AUTO) 0.4 % (0.0-2.0); EOSINOPHILS # (AUTO) 0.1 K/uL (0-0.4); EOSINOPHILS % (AUTO) 0.6 % (0.0-4.0); HEMATOCRIT 32.4 % (36-48); HEMOGLOBIN 10.3 g/dL (12.0-16.0); LYMPHOCYTES # (AUTO) 0.8 K/uL (2.5-16.5); LYMPHOCYTES % (AUTO) 9.3 % (20.5-51.1); MEAN CORPUSCULAR HEMOGLOBIN 31 pg (27-31); MEAN CORPUSCULAR HGB CONC 32 g/dL (33-37); MEAN CORPUSCULAR VOLUME 97.8 fL (80-94); MONOCYTES # (AUTO) 0.7 K/uL (0.8-1.0); MONOCYTES % (AUTO) 8.1 % (1.7-9.3); NEUTROPHILS # (AUTO) 7.3 K/uL (1.8-7.7); NEUTROPHILS % (AUTO) 81.6 % (42.2-75.2); PLATELET COUNT (AUTO) 247 K/uL (140-450); RED BLOOD CELL COUNT(AUTO) 3.31 MIL/uL (4.20-5.40); RED CELL DISTRIBUTION WIDTH 14.1 % (11.6-13.7)
[2019-06-26 15:24] LABS: FREE T4 (FREE THYROXINE) 1.21 ng/dL (0.76-1.46); THYROID STIMULATING HORMONE 0.04 uIU/mL (0.34-3.74)
[2019-06-26 15:29] LABS: ALBUMIN 2.4 g/dL (3.4-5.0); ANION GAP 11.7 (8-16); CARBON DIOXIDE 26.1 mmol/L (21-32); POTASSIUM 4.8 mmol/L (3.5-5.1); TOTAL BILIRUBIN 0.3 mg/dL (0.0-1.0)
[2019-06-26] MEDS ORDERED: NACL 0.9% 500 ML IV ONE (17:20)
--- NOTE | 2019-06-26 18:30 | NUR ---
STRAIGHT CATHETERIZATION PERFORMED AT BEDSIDE. PT TOLERATED PROCEDURE WELL. URINE SENT TO LAB
--- NOTE | 2019-06-26 19:12 | NUR ---
SBAR GIVEN TO WALTER RN.
[2019-06-26 20:06] LABS: APPEARANCE,URINE CLEAR (CLEAR); BILIRUBIN,URINE NEGATIVE (NEGATIVE); BLOOD, URINE 1+ (NEGATIVE); COLOR,URINE YELLOW (YELLOW); LEUKOCYTE ESTERASE ,URINE NEGATIVE (NEGATIVE); NITRITE, URINE NEGATIVE (NEGATIVE); UGLUCOSE NEGATIVE (NEGATIVE)
[2019-06-26 20:42] LABS: RBC,URINE 0-5 /HPF (0-5); WBC,URINE 0-5 /HPF (0-5)
[2019-06-26 21:05] VITALS: BP 93/61
--- NOTE | 2019-06-26 21:05 | NUR ---
Patient discharged with v/s stable. Written and verbal after care instructions given and explained. Patient verbalized understanding. Ambulatory with steady gait. All questions addressed prior to discharge. Advised to follow up with PMD.
--- NOTE | 2019-06-30 11:38 | NUR ---
Late entry. Confirmed with RN that 0.9 NS IV completed at 1800
== END 2019-06-26 21:05 | disposition home or self-care (01) ==
LOC: MED 13:39
DX: R00.2 Palpitations (principal); R00.0 Tachycardia, unspecified; I52 Other heart disorders in diseases classified elsewhere; Z86.73 Personal history of transient ischemic attack (TIA), and cerebral infarction without residual deficits; E11.9 Type 2 diabetes mellitus without complications; I10 Essential (primary) hypertension; E78.00 Pure hypercholesterolemia, unspecified; Z79.899 Other long term (current) drug therapy; Z79.82 Long term (current) use of aspirin; Z79.84 Long term (current) use of oral hypoglycemic drugs; Z88.5 Allergy status to narcotic agent
CPT/HCPCS: 36415; 71045; 80053; 81001; 83880; 84439; 84443; 84484; 85025; 85610; 85730; 93005; 96374; 99285; C1758; J3490; J7030; Q0092; 99283

== ENCOUNTER 2019-06-27 21:45 | Emergency (ER) | payer OTHER ==
[~2019-06-27] VITALS: Ht 154.9 cm; Wt 99.8 kg
[2019-06-27 21:47] VITALS: BP 137/91
--- NOTE | 2019-06-27 21:50 | NUR ---
TO LOBBY A/W BED VIA WHEELCHAIR
--- NOTE | 2019-06-28 01:48 | NUR ---
PT WHEELCHAIRED BY FAMILY MEMBER TO BED #12
--- NOTE | 2019-06-28 02:00 | NUR ---
pt c/o uti sx x yesterday. urine is blooded red, and pt c/o dysuria and burning sensation. vss. a & o x4. had 2 episdoes of vomitting. o/10 pain level. allergies: codeine pmh: strokes (x2), high cholesertol, htn, dm.
--- NOTE | 2019-06-28 03:12 | NUR ---
ALL RESULTS BACK AND NOTED BY ERMD AND FOR D/C
[2019-06-28 03:25] VITALS: BP 128/89
--- NOTE | 2019-06-28 03:25 | NUR ---
Patient discharged with v/s stable. Written and verbal after care instructions given and explained. Patient alert, oriented and verbalized understanding of instructions. Wheel Chair Assisted with to home. All questions addressed prior to discharge. ID band removed. Patient advised to follow up with PMD. Rx of ZOFRAN ODT 4 MG, KEFLEX 500MG. given. Patient educated on indication of medication including possible reaction and side effects. Opportunity to ask questions provided and answered.
== END 2019-06-28 03:25 | disposition home or self-care (01) ==
LOC: MED 21:45
DX: N39.0 Urinary tract infection, site not specified (principal); R11.2 Nausea with vomiting, unspecified; E11.9 Type 2 diabetes mellitus without complications; I11.0 Hypertensive heart disease with heart failure; Z86.73 Personal history of transient ischemic attack (TIA), and cerebral infarction without residual deficits; Z79.899 Other long term (current) drug therapy; Z79.82 Long term (current) use of aspirin; Z88.5 Allergy status to narcotic agent
CPT/HCPCS: 81002; 87086; 87804; 99283

== ENCOUNTER 2020-10-02 04:06 | Emergency (ER) | payer MEDICARE, OTHER ==
[~2020-10-02] VITALS: Ht 157.5 cm; Wt 95.3 kg
[~2020-10-02 04:06] MED LIST changes: +BISA5TAB79 PO; -CHOL500021 PO; +ERGO500028 PO; -GEMF600T5 PO; -MOM PO; -PSYL0.5220 PO
[2020-10-02 04:13] VITALS: BP 133/72
--- NOTE | 2020-10-02 04:20 | NUR ---
ERMD AT BEDSIDE ASSESSING PATIENT.
--- NOTE | 2020-10-02 04:22 | NUR ---
70 YO/F BIB DAUGHTER W C/O CONSTIPATION WITH LBM ON 09/18/20. BOWEL SOUNDS PRESENT. PATIENT DENIES ANY PAIN. PER DAUGHTER, THEY'VE ATTEMPTED FLEET ENEMAS, LAXATIVES AND LIQUID DIETS W/O RELIEF OF CONSTIPATION. PATIENT DENIES URINARY PROBLEMS. PATIENT AOX4. BASELINE 3L NS. BREATHING EVEN AND UNLABORED. PATIENT SITTING IN BED LOCKED IN LOWEST POSITION, X1 SIDE RAIL UP, DAUGHTER AT BEDSIDE. PMH: HTN, HIGH CHOLESTEROL, DIABETES, STROKES X2 NKA
--- NOTE | 2020-10-02 04:50 | NUR ---
Pt taken to radiology via [facility].
[2020-10-02] MEDS: MAGNESIUM CITRATE 300 ML BTL PO ONE (05:01)
--- NOTE | 2020-10-02 05:35 | NUR ---
ERICH COLLECTED AND HANDED TO SUMAN FROM LAB.
--- NOTE | 2020-10-02 05:44 | NUR ---
Provided Joann from [place] w/ pt current clinicals at this time. Per Joann, she will have to get approval from doctor and will call back later for labs.
--- NOTE | 2020-10-02 06:00 | NUR ---
LABS DRAWN AND HANDED MAT TO FROM LAB.
[2020-10-02 06:14] LABS: BASOPHILS % (AUTO) 0.8 % (0.0-2.0); EOSINOPHILS # (AUTO) 0.1 K/uL (0-0.4); HEMATOCRIT 36.9 % (36-48); LYMPHOCYTES # (AUTO) 1.2 K/uL (2.5-16.5); LYMPHOCYTES % (AUTO) 26.9 % (20.5-51.1); MEAN CORPUSCULAR HEMOGLOBIN 31 pg (27-31); MEAN CORPUSCULAR HGB CONC 33 g/dL (33-37); MEAN CORPUSCULAR VOLUME 96.6 fL (80-94); MONOCYTES # (AUTO) 0.3 K/uL (0.8-1.0); MONOCYTES % (AUTO) 5.9 % (1.7-9.3); NEUTROPHILS % (AUTO) 64.4 % (42.2-75.2); PLATELET COUNT (AUTO) 175 K/uL (140-450); RED BLOOD CELL COUNT(AUTO) 3.82 MIL/uL (4.20-5.40); RED CELL DISTRIBUTION WIDTH 15.2 % (11.6-13.7); WHITE BLOOD COUNT (AUTO) 4.6 K/uL (4.8-10.8)
[2020-10-02] MEDS: NACL 0.9% 1,000 ML IV ONE (06:23)
--- NOTE | 2020-10-02 06:35 | NUR ---
PROVIDED PHONE FOR PT'S DAUGHTER TO SPEAK W/ LUMBER CARRIER OPERATOR , CELINA FROM [facility]. PER CELINA , PROBABLY WILL BE TRANSFERRING PT TO [facility].
--- NOTE | 2020-10-02 07:09 | NUR ---
REPORT RECEIEVED FROM SINDY BROWN FOR CONTINUITY OF CARE
--- NOTE | 2020-10-02 07:09 | NUR ---
REPORT GIVEN TO STEPHANIE LAWTON FOR TRANSFER OF CARE.
[2020-10-02 07:11] LABS: ALBUMIN 3.1 g/dL (3.4-5.0); ANION GAP 8.4 (8-16); CARBON DIOXIDE 32.8 mmol/L (21-32); CREATININE 0.7 mg/dL (0.6-1.3); POTASSIUM 4.2 mmol/L (3.5-5.1); TOTAL BILIRUBIN 0.3 mg/dL (0.0-1.0)
--- NOTE | 2020-10-02 07:14 | NUR ---
PT TAKEN TO CT SCAN VIA SALVADOR ACCOMPANIED BY BHARTI ASSEMBLER CATERPILLAR SPIDER.
--- NOTE | 2020-10-02 07:26 | NUR ---
Patient returned from CT scan. RN reevaluating the patient at bedside.
--- NOTE | 2020-10-02 07:49 | NUR ---
Dr. Connelly is reevaluating the patient at bedside.
--- NOTE | 2020-10-02 08:56 | NUR ---
Patient to be transferred to [facility]. Is being transferred due to HIGHER LEVEL OF CARE. Receiving facility has accepting physician and available space. ER physician has signed transfer form. Patient or responsible constitution party has agreed to transfer and signed form. Patient belongings inventoried and will be sent with patient. Copy of nursing notes, lab reports, EKG, Physicians Orders and X-rays to be sent with patient. Report called to PATRICK BROWN at receiving facility. [facility] ambulance service has been called for transfer. ETA is 30 MIN.
--- NOTE | 2020-10-02 10:27 | NUR ---
Pt refused enema at this time, ermd made aware
--- NOTE | 2020-10-02 12:23 | NUR ---
Patient awake, resting comfortably in bed. Vital Signs within normal limits. Respirations even and unlabored. Chest rise is symmetrical. Will continue to monitor.
[2020-10-02 12:53] VITALS: BP 116/59
[2020-10-02] MEDS: fentaNYL citrate 0.05 MG/ML VIAL IVP ONE (12:53)
--- NOTE | 2020-10-02 12:53 | NUR ---
[facility] arrived
== END 2020-10-02 12:53 | disposition short-term general hospital (02) ==
LOC: MED 04:06
DX: K56.41 Fecal impaction (principal); E11.9 Type 2 diabetes mellitus without complications; I10 Essential (primary) hypertension; I25.2 Old myocardial infarction; Z86.73 Personal history of transient ischemic attack (TIA), and cerebral infarction without residual deficits; Z88.5 Allergy status to narcotic agent; Z79.899 Other long term (current) drug therapy; Z79.82 Long term (current) use of aspirin
CPT/HCPCS: 36415; 74018; 74176; 80053; 83605; 85025; 87426; 96361; 96374; 99285; J3010; J7030; 99283

== ENCOUNTER 2020-10-10 21:08 | Emergency (ER) | payer MEDICARE, OTHER ==
[~2020-10-10] VITALS: Ht 157.5 cm; Wt 95.3 kg
[2020-10-10 21:12] VITALS: BP 137/89
--- NOTE | 2020-10-10 21:20 | NUR ---
PT TAKEN TO BED 04 VIA W.C.
--- NOTE | 2020-10-10 21:28 | NUR ---
PT BIB SELF WITH SON BY SIDE FOR C/O CONSTIPATION X 2 DAYS. PT REPORTS SHE WAS ADMITTED ON 10/02 AND DISCHARGED 10/06 FOR FECAL IMPACTION. PT REPORTS PAIN 11/20. ABDOMEN IS FIRM, ROUND, TENDER TO TOUCH. LAST REPORTS BM 10/09/20, PT STATING "IT WAS REALLY SMALL." PT REPORTS 3L O2 AT HOME. CURRENT VSS. PT REPORTS DAILY MIRALAX WITH NO RELIEF. PT DENIES N/V/D, CP, SOB. BED LOCKED AND IN LOWEST POSITION. BED RAIL X 2. SEE COMPLETE ASSESSMENT FOR FURTHER DETAILS. MED HX: CVA (X2 WITH LEFT SIDED PARALYSIS), DM, HTN ALLERGIES: CODEINE
--- NOTE | 2020-10-10 21:41 | NUR ---
ERMD AT BEDSIDE.
--- NOTE | 2020-10-10 21:46 | NUR ---
IV 20 G RAC ESTABLISHED. LABS DRAWN AND HAND GIVEN TO CAMERON OPHTHALMIC TECHNOLOGIST, AT BEDSIDE.
[2020-10-10 21:59] LABS: BASOPHILS % (AUTO) 0.7 % (0.0-2.0); EOSINOPHILS # (AUTO) 0.2 K/uL (0-0.4); EOSINOPHILS % (AUTO) 2.7 % (0.0-4.0); HEMATOCRIT 32.3 % (36-48); HEMOGLOBIN 10.5 g/dL (12.0-16.0); LYMPHOCYTES # (AUTO) 1.1 K/uL (2.5-16.5); LYMPHOCYTES % (AUTO) 19.8 % (20.5-51.1); MEAN CORPUSCULAR HEMOGLOBIN 31 pg (27-31); MEAN CORPUSCULAR HGB CONC 33 g/dL (33-37); MEAN CORPUSCULAR VOLUME 96.2 fL (80-94); MONOCYTES # (AUTO) 0.4 K/uL (0.8-1.0); MONOCYTES % (AUTO) 7.8 % (1.7-9.3); NEUTROPHILS # (AUTO) 3.9 K/uL (1.8-7.7); PLATELET COUNT (AUTO) 166 K/uL (140-450); RED BLOOD CELL COUNT(AUTO) 3.36 MIL/uL (4.20-5.40); RED CELL DISTRIBUTION WIDTH 14.4 % (11.6-13.7); WHITE BLOOD COUNT (AUTO) 5.6 K/uL (4.8-10.8)
[2020-10-10 22:12] LABS: ALBUMIN 2.8 g/dL (3.4-5.0); ANION GAP 8.2 (8-16); CARBON DIOXIDE 35.4 mmol/L (21-32); CREATININE 0.7 mg/dL (0.6-1.3); POTASSIUM 3.6 mmol/L (3.5-5.1); TOTAL BILIRUBIN 0.3 mg/dL (0.0-1.0)
--- NOTE | 2020-10-10 22:15 | NUR ---
PT TAKEN TO CT VIA [facility].
--- NOTE | 2020-10-10 22:31 | NUR ---
PT RETURNED FROM CT VIA [facility].
--- NOTE | 2020-10-10 23:34 | NUR ---
VERBAL ORDER FOR TYLENOL 1,000 MG BY TAMIKO DAWSON. ORDER PLACED.
[2020-10-10] MEDS ORDERED: ACETAMINOPHEN EXTRA STRENGTH 500 MG TAB PO ONE (23:35)
[2020-10-11] MEDS ORDERED: NACL 0.9% 1,000 ML IV ONE ×2 (01:10)
--- NOTE | 2020-10-11 01:20 | NUR ---
ERICH OF NARES COLLECTED AND HAND GIVEN TO JESÚS REVENUE CYCLE CONSULTANT, AT BEDSIDE.
[2020-10-11 02:07] LABS: PROTHROMBIN TIME 10.4 secs (10.8-13.4)
--- NOTE | 2020-10-11 02:30 | NUR ---
Patient appears to be resting comfortably in bed. Vital Signs within normal limits. Respirations even and unlabored. PT DENIES PAIN AT THIS TIME. PT REPOSITIONED FOR COMFORT. SON AT BEDSIDE.
--- NOTE | 2020-10-11 04:03 | NUR ---
TRANSFER CONSENT FORMED SIGNED BY SON PER PT REQUEST.
--- NOTE | 2020-10-11 05:13 | NUR ---
Patient to be transferred to [facility]. Is being transferred due to INSURANCE. Receiving facility has accepting physician and available space. ER physician has signed transfer form. Patient or responsible constitution party has agreed to transfer and signed form. Patient belongings inventoried and will be sent with patient. Copy of nursing notes, lab reports, EKG, Physicians Orders and X-rays to be sent with patient. Report called to STEPHANIE NUNEZ at receiving facility. [facility] ambulance service has been called for transfer. ETA is 90 MIN.
--- NOTE | 2020-10-11 07:22 | NUR ---
[facility] TRANSP[facility] AT BEDSIDE
[2020-10-11 07:24] VITALS: BP 130/72
== END 2020-10-11 07:30 | disposition short-term general hospital (02) ==
LOC: MED 21:08
DX: K59.00 Constipation, unspecified (principal); Z20.822 Contact with and (suspected) exposure to COVID-19; R14.0 Abdominal distension (gaseous); E11.9 Type 2 diabetes mellitus without complications; I10 Essential (primary) hypertension; I25.2 Old myocardial infarction; Z79.899 Other long term (current) drug therapy; Z88.5 Allergy status to narcotic agent; Z86.73 Personal history of transient ischemic attack (TIA), and cerebral infarction without residual deficits; Z98.890 Other specified postprocedural states; Z79.82 Long term (current) use of aspirin
CPT/HCPCS: 36415; 74176; 80053; 85025; 85610; 85730; 86886; 86900; 86901; 87426; 96360; 96361; 99285; J7030

== ENCOUNTER 2020-12-07 08:40 | Emergency (ER) | payer MEDICARE, OTHER ==
[~2020-12-07] VITALS: Ht 157.5 cm; Wt 88.5 kg
[~2020-12-07 08:40] MED LIST changes: +ERGO-30 PO; -ERGO500028 PO
[2020-12-07 08:45] VITALS: BP 133/83
--- NOTE | 2020-12-07 09:05 | NUR ---
Pt discharged from [facility] x1.5 months ago. Pt family noticed wound on sacral area. Pt daughter repositioning q2h in bed and using honey as recommended by home health nurse. Pt afebrile. Allergies: Codeine Med hx: Stroke x2, DM, HTN, DVT, Colostomy
--- NOTE | 2020-12-07 09:15 | NUR ---
Dr. Malone at the bedside evaluating patient.
[2020-12-07] MEDS ORDERED: CEPH-588 PO (09:31)
[2020-12-07 09:43] VITALS: BP 133/83
--- NOTE | 2020-12-07 09:43 | NUR ---
Patient discharged with v/s stable. Written and verbal after care instructions given and explained. Patient alert, oriented and verbalized understanding of instructions. Wheel Chair Assisted by daughter. All questions addressed prior to discharge. ID band removed. Patient advised to follow up with PMD. Rx of cephalexin given. Patient educated on indication of medication including possible reaction and side effects. Opportunity to ask questions provided and answered.
== END 2020-12-07 09:43 | disposition home or self-care (01) ==
LOC: MED 08:40
DX: L89.159 Pressure ulcer of sacral region, unspecified stage (principal)
CPT/HCPCS: 99283

== ENCOUNTER 2021-06-07 11:30 | Inpatient (IN) | payer MEDICARE, OTHER, SELFPAY ==
[~2021-06-07] VITALS: Ht 154.9 cm; Wt 83.9 kg
[~2021-06-07 11:30] MED LIST changes: +CEPH-588 PO
[2021-06-07 11:37] VITALS: BP 114/80
--- NOTE | 2021-06-07 11:44 | NUR ---
Patient being evaluated BY DR PAULA at [facility] 2.
--- NOTE | 2021-06-07 11:52 | NUR ---
Patient wheelchair assisted to bed 3.
--- NOTE | 2021-06-07 11:55 | NUR ---
PATIENT CONNECTED TO BEDSIDE MONITOR, PROVIDED WITH CLEAN LINENS AND SAFETY MEASURES PUT IN PLACE. WILL CONTINUE TO MONITOR
--- NOTE | 2021-06-07 11:56 | NUR ---
ERICH SPECIMEN COLLECTED AND TAKEN TO LAB
--- NOTE | 2021-06-07 12:16 | NUR ---
RT AT PATIENT BEDSIDE
[2021-06-07 12:47] LABS: BASOPHILS % (AUTO) 0.4 % (0.0-2.0); EOSINOPHILS % (AUTO) 0.4 % (0.0-4.0); HEMATOCRIT 29.1 % (36-48); HEMOGLOBIN 9.7 g/dL (12.0-16.0); LYMPHOCYTES # (AUTO) 0.5 K/uL (2.5-16.5); LYMPHOCYTES % (AUTO) 34.2 % (20.5-51.1); MEAN CORPUSCULAR HEMOGLOBIN 30 pg (27-31); MEAN CORPUSCULAR HGB CONC 33 g/dL (33-37); MEAN CORPUSCULAR VOLUME 90.1 fL (80-94); MONOCYTES # (AUTO) 0.1 K/uL (0.8-1.0); MONOCYTES % (AUTO) 7.7 % (1.7-9.3); NEUTROPHILS # (AUTO) 0.8 K/uL (1.8-7.7); NEUTROPHILS % (AUTO) 57.3 % (42.2-75.2); PLATELET COUNT (AUTO) 129 K/uL (140-450); RED BLOOD CELL COUNT(AUTO) 3.23 MIL/uL (4.20-5.40); RED CELL DISTRIBUTION WIDTH 16.2 % (11.6-13.7)
[2021-06-07 13:05] LABS: WHITE BLOOD COUNT (AUTO) 1.4 K/uL (4.8-10.8)
[2021-06-07] MEDS ORDERED: ASPIRIN 81 MG TAB.CHEW PO ONE (14:35)
[2021-06-07] MEDS ORDERED: cefTRIAXone 1,000 MG VIAL ONE (15:19)
[2021-06-07 15:20] LABS: ALBUMIN 2.3 g/dL (3.4-5.0); ANION GAP 10.6 (8-16); ASPARTATE AMINOTRANSFERASE 47 U/L (15-37); CARBON DIOXIDE 29.3 mmol/L (21-32); CHLORIDE 104 mmol/L (98-107); CREATININE 0.7 mg/dL (0.6-1.3); GLUCOSE 117 mg/dL (74-106); POTASSIUM 4.9 mmol/L (3.5-5.1); SODIUM SERUM 139 mmol/L (136-145); TOTAL BILIRUBIN 0.2 mg/dL (0.0-1.0); UREA NITROGEN, BLOOD 17 mg/dL (7-18)
--- NOTE | 2021-06-07 17:11 | NUR ---
PATIENT PULLED OUT 2ND IV, CLEANED AND BANDAGED AREA.
--- NOTE | 2021-06-07 19:17 | NUR ---
Pt report given to STEPHANIE HERNANDEZ. Transfer of care at this time.
[2021-06-07] MEDS ORDERED: MORPHINE SULFATE 2 MG/ML SYR IVP PRN (19:25)
[2021-06-07] MEDS ORDERED: ALBUTEROL 0.083% 2.5 MG/3 ML NEBU INH PRN (19:25)
[2021-06-07] MEDS ORDERED: ACETAMINOPHEN 325 MG TAB PO PRN (19:25)
[2021-06-07] MEDS ORDERED: ONDANSETRON 4 MG/2 ML VIAL IVP PRN (19:25)
[2021-06-07] MEDS ORDERED: LOVENOX 1MG/KG Q12H SUBQ SCH (19:30)
[2021-06-07] MEDS ORDERED: ENOXAPARIN 80 MG/0.8 ML SYR SUBQ SCH (19:30)
[2021-06-07] MEDS ORDERED: remdesivir COMMUNICATION ORDER 1 EA MISC MC PRN (19:35)
[2021-06-07] MEDS ORDERED: AZITHROMYCIN 500 MG INJ VIAL IV ONE (20:40)
[2021-06-07] MEDS: AZITHROMYCIN 500 MG in DEXTROSE 5% 250 ML IV SCH (20:47)
--- NOTE | 2021-06-07 21:09 | NUR ---
DAUGHTER MANJEET [phone]
--- NOTE | 2021-06-07 23:45 | NUR ---
TO BED 127B VIA GURNEY, ATTACHED TO SUPERVISOR RUBBER COVERING
[2021-06-08 00:15] VITALS: BP 100/60
[2021-06-08 04:30] VITALS: BP 98/52
--- NOTE | 2021-06-08 06:26 | NUR ---
Error updated based on patient initial refusal to take off clothing at the time received verbal responses. Addendum: 06/08/21 at 0644 by Agency Whitney BROWN RN Amended: Links added.
[2021-06-08 07:13] LABS: BASOPHILS % (AUTO) 0.3 % (0.0-2.0); EOSINOPHILS % (AUTO) 0.4 % (0.0-4.0); HEMATOCRIT 27.9 % (36-48); HEMOGLOBIN 9.5 g/dL (12.0-16.0); LYMPHOCYTES # (AUTO) 0.7 K/uL (2.5-16.5); MEAN CORPUSCULAR HEMOGLOBIN 31 pg (27-31); MEAN CORPUSCULAR HGB CONC 34 g/dL (33-37); MEAN CORPUSCULAR VOLUME 90.1 fL (80-94); MONOCYTES # (AUTO) 0.1 K/uL (0.8-1.0); MONOCYTES % (AUTO) 7.2 % (1.7-9.3); NEUTROPHILS # (AUTO) 0.9 K/uL (1.8-7.7); NEUTROPHILS % (AUTO) 52.1 % (42.2-75.2); PLATELET COUNT (AUTO) 126 K/uL (140-450); RED CELL DISTRIBUTION WIDTH 16.2 % (11.6-13.7)
[2021-06-08 07:22] LABS: WHITE BLOOD COUNT (AUTO) 1.8 K/uL (4.8-10.8)
[2021-06-08 07:27] LABS: ALBUMIN 2.2 g/dL (3.4-5.0); ANION GAP 8.9 (8-16); ASPARTATE AMINOTRANSFERASE 50 U/L (15-37); CARBON DIOXIDE 30.5 mmol/L (21-32); CHLORIDE 106 mmol/L (98-107); CREATININE 0.7 mg/dL (0.6-1.3); GLUCOSE 100 mg/dL (74-106); MAGNESIUM 2.1 mg/dL (1.8-2.4); PHOSPHORUS 2.5 mg/dL (2.5-4.9); POTASSIUM 4.4 mmol/L (3.5-5.1); SODIUM SERUM 141 mmol/L (136-145); TOTAL BILIRUBIN 0.2 mg/dL (0.0-1.0); UREA NITROGEN, BLOOD 13 mg/dL (7-18)
--- NOTE | 2021-06-08 07:40 | NUR ---
RECEIVED REPORT FROM GUM MIXER NURSE FOR CONTINUITY OF CARE. PT IN BED AWAKE, ALERT. ON O2 VIA NC AT 4L. BREATHING SYMMETRICAL. DENIES PAIN AT THIS TIME. WITH RFA 22G PERIPHERAL IV LINE, NO FLUIDS RUNNING. COLOSTOMY BAG INTACT AND PATENT WITH SMALL BROWN LIQUID OUTPUT. CALL LIGHT WITHIN REACH. ALL SAFETY MEASURES IN PLACE.
[2021-06-08 08:00] VITALS: BP 115/73
--- NOTE | 2021-06-08 08:56 | NUR ---
PATIENT HAS BEEN SCREENED AND CATEGORIZED HIGH NUTRITION RISK. PATIENT WILL BE SEEN WITHIN 1-2 DAYS OF ADMISSION. / REFERRAL RECEIVED FOR DIARRHEA OVER THREE DAYS [address]
--- NOTE | 2021-06-08 09:40 | NUR ---
TITRATED O2 TO 3L NC, TOLERATING WELL. O2 SAT 96%
[2021-06-08] MEDS ORDERED: remdesivir CLINICAL MONITORING 1 EA MISC MC PRN (09:55)
[2021-06-08] MEDS: ASCORBIC ACID 500 MG TAB PO SCH (09:58)
[2021-06-08] MEDS: DEXAMETHASONE 4 MG/ML VIAL IVP SCH (09:58)
[2021-06-08] MEDS: ZINC SULF 220 MG CAP PO SCH (09:58)
--- NOTE | 2021-06-08 09:58 | NUR ---
SCHEDULED AM MEDICATIONS GIVEN PER MD ORDER
[2021-06-08] MEDS: ENOXAPARIN 80 MG/0.8 ML SYR SUBQ SCH ×2 (09:59→20:12)
[2021-06-08 12:00] VITALS: BP 119/78
[2021-06-08] MEDS ORDERED: REMDESIVIR. 200 MG in NACL 0.9% 100 ML IV SCH (12:00)
--- NOTE | 2021-06-08 12:36 | NUR ---
PT TEMP ELEVATED 100.[address] MCDERMOTT MADE AWARE. REMDESIVIR GIVEN PER MD ORDER. PT DENIES PAIN. SACRAL WOUND DRESSING CHANGED. WILL CONTINUE TO MONITOR.
[2021-06-08] MEDS ORDERED: ACETAMINOPHEN 325 MG TAB PO PRN (13:15)
--- NOTE | 2021-06-08 13:15 | NUR ---
RECEIVED NEW ORDER FROM DR MCDERMOTT FOR PRN TYLENOL FOR FEVER. PT AWARE.
--- NOTE | 2021-06-08 14:06 | NUR ---
PRN TYLENOL GIVEN FOR TEMP 100.8
--- NOTE | 2021-06-08 14:14 | NUR ---
O2 TITRATED TO 2L NC, PT SATING AT 95% BREATHING SYMMETRICAL. WILL CONTINUE TO MONITOR
--- NOTE | 2021-06-08 15:19 | NUR ---
PT IN BED, ASLEEP. O2 ADJUSTED TO 3L NC SATING AT 93-94%, NO SOB NOTED AT THIS TIME. PT SATING AT 91% WITH 2L. WILL CONTINUE TO MONITOR. Addendum: 06/08/21 at 1610 by Pamela Marleny Ana RN TEMP DECREASED TO 98.9
[2021-06-08 16:00] VITALS: BP 100/71
--- NOTE | 2021-06-08 18:15 | NUR ---
PT IN BED AWAKE. ON O2 VIA NC AT 3L, TOLERATING WELL, SATING AT 95% BREATHING SYMMETRICAL. DENIES PAIN AT THIS TIME. ORAL TEMP 98.2 CALL LIGHT WITHIN REACH. ALL SAFETY MEASURES IN PLACE.
[2021-06-08] MEDS ORDERED: DEXTROSE 50% 50 ML SYR IVP PRN (19:30)
--- NOTE | 2021-06-08 19:35 | NUR ---
RECEIVED REPORT FROM DAY SHIFT NURSE FOR CONTINUITY OF CARE. PT A&OX 3. ON O2 VIA NC AT 3L. BREATHING EQUAL AND UNLABORED. DENIES PAIN AT THIS TIME. WITH RFA 22G PERIPHERAL IV LINE, NO FLUIDS RUNNING. COLOSTOMY BAG INTACT AND PATENT WITH SMALL BROWN LIQUID OUTPUT. CALL LIGHT WITHIN REACH. ALL SAFETY MEASURES IN PLACE.
[2021-06-08 20:00] VITALS: BP 109/69
[2021-06-08] MEDS: AZITHROMYCIN 500 MG in DEXTROSE 5% 250 ML IV SCH (20:11)
[2021-06-08] MEDS: BLOOD GLUCOSE MONITORING 1 DEV DEV FS SCH (20:48)
--- NOTE | 2021-06-08 21:00 | NUR ---
SCHEDULED MEDICATIONS GIVE. PT TOLERATED WELL. NO S/SX OF DISTRESS. O2 SAT AT 97%.
--- NOTE | 2021-06-08 23:41 | NUR ---
PT ASLEEP. VISIBLE CHEST RISE AND FALL NOTED. ALL PRECAUTIONS IN PLACE. CALL LIGHT WITHIN REACH. WILL CONTINUE TO MONITOR.
[2021-06-09] VITALS: BP 112/73
--- NOTE | 2021-06-09 01:37 | NUR ---
ROUNDS MADE. PT ASLEEP. BREATHING EQUAL AND UNLABORED.NO S/SX OF DISTRESS NOTED. ALL PRECAUTIONS IN PLACE. WILL CONTINUE TO MONITOR.
[2021-06-09 04:00] VITALS: BP 110/70
[2021-06-09] MEDS: BLOOD GLUCOSE MONITORING 1 DEV DEV FS SCH ×4 (06:23→21:05)
--- NOTE | 2021-06-09 06:28 | NUR ---
PT IS STABLE. NO ACUTE EVENT THROUGHOUT THE NIGHT. NO S/SX OF DISTRESS NOTED. ALL NEEDS MET. ALL PRECAUTIONS IN PLACE. CALL LIGHT WITHIN REACH. WILL ENDORSE TO AM SHIFT NURSE.
--- NOTE | 2021-06-09 07:30 | NUR ---
RECEIVED REPORT FROM SUB PRIOR NURSE FOR CONTINUITY OF CARE. PT AWAKE IN BED. BREATHING SYMMETRICAL, ON O2 VIA NC AT 3L, SATING AT 93%. DENIES PAIN AT THIS TIME. COLOSTOMY BAG INTACT. WITH RFA 22G. CALL LIGHT WITHIN REACH. ALL SAFETY MEASURES IN PLACE. WILL CONTINUE TO MONITOR.
--- NOTE | 2021-06-09 07:32 | NUR ---
PT ENDORSED TO AM SHIFT NURSE FOR CONTINUITY OF CARE. PT IS STABLE.
[2021-06-09 08:00] VITALS: BP 91/44
[2021-06-09 08:24] LABS: ALBUMIN 2.1 g/dL (3.4-5.0); ANION GAP 11.9 (8-16); ASPARTATE AMINOTRANSFERASE 42 U/L (15-37); CARBON DIOXIDE 29.8 mmol/L (21-32); CHLORIDE 105 mmol/L (98-107); CREATININE 0.7 mg/dL (0.6-1.3); GLUCOSE 101 mg/dL (74-106); POTASSIUM 4.7 mmol/L (3.5-5.1); SODIUM SERUM 142 mmol/L (136-145); TOTAL BILIRUBIN 0.2 mg/dL (0.0-1.0); UREA NITROGEN, BLOOD 21 mg/dL (7-18)
[2021-06-09] MEDS: ENOXAPARIN 80 MG/0.8 ML SYR SUBQ SCH ×2 (09:00→20:55)
--- NOTE | 2021-06-09 09:30 | NUR ---
LOVENOX NOT GIVEN, PT'S DOESN'T HAVE CURRENT PLATELET VALUE, PLT COUNT IS TRENDING DOWN.
[2021-06-09] MEDS: DEXAMETHASONE 4 MG/ML VIAL IVP SCH (09:36)
[2021-06-09] MEDS: ZINC SULF 220 MG CAP PO SCH (09:37)
[2021-06-09] MEDS: ASCORBIC ACID 500 MG TAB PO SCH (09:37)
[2021-06-09 12:00] VITALS: BP 112/67
[2021-06-09] MEDS: REMDESIVIR. 100 MG in NACL 0.9% 100 ML IV SCH (12:09)
[2021-06-09] MEDS: INSULIN LISPRO SLIDING SCALE 100 UNITS/ML VIAL SUBQ PRN ×3 (12:26→21:06)
--- NOTE | 2021-06-09 12:30 | NUR ---
PT AWAKE IN BED, ABLE TO MAKE NEEDS KNOWN. ON O2 VIA NC AT 3L, SATING AT 95% NO SOB NOTED AT THIS TIME. DENIES PAIN OR DISCOMFORT. CALL LIGHT WITHIN REACH. ALL SAFETY MEASURES IN PLACE. WILL CONTINUE TO MONITOR.
--- NOTE | 2021-06-09 12:40 | NUR ---
06/09/21 RD INITIAL ASSESSMENT COMPLETED PLEASE REFER TO NUTRITION ASSESSMENT UNDER CARE ACTIVITY FOR ESTIMATED NUTRITIONAL NEEDS. 1. CONTINUE REGULAR DIET TOLERATED -RECOMMEND CCHO 60GM DIET IF BLOOD GLUCOSE INCREASES 2. RECOMMEND GLUCERNA BID PER RD PROTOCOL 3. CONTINUE ZINC AND VITAMIN C FOR WOUND HEALING 4. MONITOR NUTRITION-RELATED LABS 5. RD TO FOLLOW-UP 3-5 DAYS, MODERATE RISK JORGE MUJICA RD
--- NOTE | 2021-06-09 15:03 | NUR ---
PT ON O2 VIA NC AT 3L, TOLERATING WELL SATING AT 96% NOTED WITH EPISODES OF NON PRODUCTIVE COUGH. DENIES PAIN AT THIS TIME. CALL LIGHT PLACED WITHIN REACH. WILL CONTINUE TO MONITOR.
[2021-06-09 16:00] VITALS: BP 125/57
--- NOTE | 2021-06-09 17:00 | NUR ---
NO SOB NOTED. ON O2 NC AT 3L, TOLERATING WELL SATING AT 96% DENIES PAIN. CALL LIGHT WITHIN REACH. WILL CONTINUE TO MONITOR
--- NOTE | 2021-06-09 19:30 | NUR ---
ENDORSED TO WOODEN FRAME BUILDER NURSE, PT IN STABLE CONDITION.
[2021-06-09 20:00] VITALS: BP 118/53
[2021-06-09] MEDS: AZITHROMYCIN 500 MG in DEXTROSE 5% 250 ML IV SCH (21:05)
--- NOTE | 2021-06-09 21:30 | NUR ---
SCHEDULED MEDICATIONS GIVEN. PT TOLERATED WELL. NO S/SX OF DISTRESS.BLOOD SUGAR WAS 152.INSULIN COVERAGE GIVEN. O2 SAT AT 95%.
--- NOTE | 2021-06-10 | NUR ---
PT ASLEEP. VISIBLE CHEST RISE AND FALL NOTED. ALL PRECAUTIONS IN PLACE. CALL LIGHT WITHIN REACH. WILL CONTINUE TO MONITOR.
--- NOTE | 2021-06-10 02:30 | NUR ---
ROUNDS MADE. PT AWAKE AND USING HER CELLPHONE. PT DENIES ANY PAIN OR DISCOMFORT.ALL PRECAUTIONS IN PLACE. WILL CONTINUE TO MONITOR.
[2021-06-10 04:00] VITALS: BP 149/80
--- NOTE | 2021-06-10 04:30 | NUR ---
PT ASLEEP. VISIBLE CHEST RISE AND FALL NOTED. O2SAT AT 96%.ALL PRECAUTIONS IN PLACE. CALL LIGHT WITHIN REACH. WILL CONTINUE TO MONITOR.
[2021-06-10] MEDS: BLOOD GLUCOSE MONITORING 1 DEV DEV FS SCH ×2 (06:17→11:41)
[2021-06-10 06:34] LABS: ALBUMIN 2.1 g/dL (3.4-5.0); ANION GAP 12.6 (8-16); ASPARTATE AMINOTRANSFERASE 33 U/L (15-37); CARBON DIOXIDE 27.8 mmol/L (21-32); CHLORIDE 107 mmol/L (98-107); CREATININE 0.7 mg/dL (0.6-1.3); GLUCOSE 85 mg/dL (74-106); POTASSIUM 4.4 mmol/L (3.5-5.1); SODIUM SERUM 143 mmol/L (136-145); TOTAL BILIRUBIN 0.2 mg/dL (0.0-1.0); UREA NITROGEN, BLOOD 21 mg/dL (7-18)
--- NOTE | 2021-06-10 07:25 | NUR ---
PT AWAKE . RECEIVED ENDORSEMENT FROM SUPERVISOR HYDROCHLORIC AREA NURSE FOR CONTINUITY OF CARE.
--- NOTE | 2021-06-10 08:30 | NUR ---
WOUND CARE NOTE: SKIN ASSESSMENT DONE ON THIS 71 Y/O PT. NON-VERBAL, PT. ADMITTED WITH COVID POSITIVE, SOB. PAST MEDICAL HX DIABETES, HYPERTENSION, HYPERLIPIDEMIA, HISTORY CVA WITH LEFT-SIDED WEAKNESS. PT. ADMITTED WITH PRESSURE INJURY STAGE 4. ABOVE INFORMATION OBTAIN FROM H&P. PT IS AAX4, VERBALIZES NEEDS. PT IS INCONTINENT OF BOWEL AND BLADDER UPON, SKIN DRY AND THIN, EASILY TO TORN. POC DISCUSSED WITH PRIMARY NURSE. COMORBIDITIES RELATED TO DELAY WOUND HEALING AND FURTHER SKIN BREAKS HYPOXEMIC DECREASE TISSUE PERFUSION, INCONTINENT BOWEL AND BLADDER, DECREASE MOBILITY AND FUNCTIONAL ABILITIES AND HOB ELEVATED THE MAJORITY OF TIMES DUE TO MEDICAL REASONS. INTEGUMENTARY: -PRESSURE INJURY STAGE 4 SACRAL COCCYX 3X3X2 CM, UNDERMINING 2.5 CM TO 9 OCLOCK DIRECTION, WOUND BED 100% RED GRANULATING TISSUE, MODERATE AMOUNT DRAINAGE, NO ODOR, HEALING SCAR TISSUES WITH NON-BLANCHABLE REDNESS TO EDMUNDO-WOUND SKIN INDICATED FURTHER DAMAGE. -MOISTURE ASSOCIATED DERMATITIS TO PERINEUM SKIN MOIST AND INTACT -BILATERAL HEELS THIN CALLUS DRY SCALY SKIN RECOMMENDATIONS -CLEANSE SACRALCOCCYX WITH NS, PAT DRY, PACK WITH ALGINATE DRESSING TO WOUND BED, COVER WITH ISLAND DRESSING CHANGE QD AND PRN IF SOILING, OFFLOADING AT ALL TIMES -APPLY HYDRAGUARD TO PERINEUM MAD BID AND PRN IF SOILING -APPLY SKIN PREP WIPE TO BILATERAL HEELS BID AND SIDEROGRAPHIST -APPLY HEEL PROTECTORS -TURN AND REPOSITION PATIENT Q 2H -ASSESS AND MONITOR SKIN CONDITION DURING POSITION CHANGE -OFFLOAD BILATERAL HEELS BY PLACING PILLOWS UNDER CALVES AT ALL TIMES, UNLESS OTHERWISE CONTRAINDICATED -PRESSURE REDISTRIBUTION SURFACE THERAPY -KEEP SKIN CLEAN AND DRY AT ALL TIMES. PLEASE CONTACT WOUND CARE NURSE FOR ANY QUESTION AND CHANGE OF WOUND CONDITION.
[2021-06-10] MEDS: ASCORBIC ACID 500 MG TAB PO SCH (08:45)
[2021-06-10] MEDS: ZINC SULF 220 MG CAP PO SCH (08:45)
[2021-06-10] MEDS: ENOXAPARIN 80 MG/0.8 ML SYR SUBQ SCH (08:46)
--- NOTE | 2021-06-10 08:54 | NUR ---
GIVEN ALL DUE MEDICATION TOLERATED WELL. REQUEST FOR CEREAL INSTEAD OF CHERRIOS FOR BREAKFAST PT ALSO GIVEN TOAST BREAK THAT SHE REQUEST BUT REFUSED TO EAT IT.
--- NOTE | 2021-06-10 09:01 | NUR ---
GIVEN CORNFLAKES CEREALS REQUESTED PREPARED WITH MILK.
[2021-06-10] MEDS: DEXAMETHASONE 4 MG/ML VIAL IVP SCH (09:19)
--- NOTE | 2021-06-10 09:34 | NUR ---
PT KEEP ON REMOVING HER OXYGEN ENCOURAGED TO LEAVE IT ON HER NOSE AND EXPLAIN THE RISK AND BENEFIT.
--- NOTE | 2021-06-10 11:51 | NUR ---
BLOOD SUGAR CHECKED NO INSULIN COVERAGE NEEDED FOR BLOOD SUGAR 147. ON STABLE CONDITION VERBALIZING THAT SHE FEELS MUCH BETTER AND NOT COUGH MUCH WHEN SHE WAS ADMITTED.
[2021-06-10 12:00] VITALS: BP 112/72
[2021-06-10] MEDS: REMDESIVIR. 100 MG in NACL 0.9% 100 ML IV SCH (12:54)
[2021-06-10] MEDS ORDERED: ALGINATE ROPE MC SCH (13:00)
[2021-06-10] MEDS ORDERED: HYDRAGUARD CREAM TP SCH (13:00)
--- NOTE | 2021-06-10 13:03 | NUR ---
RN GAVE REMDESEVIR IV MEDICATION NO ADVERSE REACTION NOTED. PT ONLY SIP A FEW SPOONFUL OF SOUP AND REFUSED TO EAT THE REST OF HER LUNCH OFFERED SUBSTITUTE BUT VERBALIZED SHE NOT THAT HUNGRY.
--- NOTE | 2021-06-10 14:28 | NUR ---
RN GAVE IV ANTIBIOTIC NO ADVERSE REACTION NOTED.
--- NOTE | 2021-06-10 14:28 | NUR ---
GOT CALLED FROM DAUGHTER THAT PT IS GOING TO BE DISCHARGE TODAY AND REQUESTING IF PNA AND FLU VACCINE BE GIVEN BEFORE PT DISCHARGE.
[2021-06-10] MEDS ORDERED: DEC4 PO (14:38)
--- NOTE | 2021-06-10 14:40 | NUR ---
INFORM DR. JARA REGARDING THEIR REQUEST FOR PNA AND FLU VACCINE BUT DR. JARA SAID PT NEED TO WAIT FOR FEW WEEKS DUE TO HER ACTIVE COVID. TIED TO CALL MANJEET THE DAUGHTER BUT NO ONE ANSWER WILL TRY TO CALL AGAIN.
--- NOTE | 2021-06-10 15:02 | NUR ---
SPOKE TO MANJEET REGARDING RECOMMENDATION OF PNA AND FLU VACCINE TO BE GIVE TO PT IN FEW WEEKS. ALSO INFORM HER OF DISCHARGE HOME ORDER AND SHE SAID SHE WILL PICK HER UP AROUND 4PM.
[2021-06-10 15:32] VITALS: BP 112/72
--- NOTE | 2021-06-10 16:48 | NUR ---
PT ALERT AND VERBALLY RESPONSIVE NO DISTRESS NOTED. GIVEN DISCHARGE INSTRUCTION AND PACKET TO DAUGHTER MANJEET VERBALIZED UNDERSTANDING GIVEN ALL BELONGING EXCEPT FROM [facility] THAT PT HAD IT ON WHEN SHE GOES TO ER. WE TIRED TO [facility] FOR IT AND CALL SECURITY BUT UNABLE TO LOCATE IT. IV DISCONNECTED CATHETER INTACT. NAME BAND REMOVED. TRANSFER PT TO HER WHEELCHAIR WITH THE HELP FROM DAUGHTER AND2 FACILITY STAFF. PT WHEELED TO THEIR VAN WITH PORTABLE OXYGEN TOLERATED WELL.
--- NOTE | 2021-06-10 17:53 | NUR ---
RECEIVED FROM LAB THAT PT MRSA NARES INFORM LAB THAT PT IS DISCHARGE ALREADY.
== END 2021-06-10 16:56 | disposition home or self-care (01) | DRG 177 ==
LOC: MED 11:30 → MTU 19:29 → MMU 22:13
PROVIDERS: ADMIT Hospitalist; ATTEND Hospitalist
PROC: XW033E5 Introduction of Remdesivir Anti-infective into Peripheral Vein, Percutaneous Approach, New Technology Group 5 (ICD-10-PCS; principal; 2021-06-09)
DX: U07.1 COVID-19 (principal); J96.01 Acute respiratory failure with hypoxia; J12.82 Pneumonia due to coronavirus disease 2019; I69.954 Hemiplegia and hemiparesis following unspecified cerebrovascular disease affecting left non-dominant side; E11.9 Type 2 diabetes mellitus without complications; I10 Essential (primary) hypertension; E78.5 Hyperlipidemia, unspecified; Z88.5 Allergy status to narcotic agent; Z99.3 Dependence on wheelchair
CPT/HCPCS: 36415; 71045; 80053; 82803; 82948; 83605; 83735; 83880; 84100; 84484; 85025; 87040; 87081; 93005; 96365; 96367; 96372; 99291; J0456; J0696; J1100; J1650; J7060

== ENCOUNTER 2023-11-17 14:59 | Emergency (ER) | payer MEDICARE, OTHER ==
[~2023-11-17] VITALS: Ht 152.4 cm; Wt 68.0 kg
[~2023-11-17 14:59] MED LIST changes: -CEPH-588 PO; +DEC4 PO; +METF-346 PO; -METF500T PO
[2023-11-17 15:17] VITALS: BP 122/79; PULSE 107; RESP 18; TEMP 98.1; O2SAT 88
[2023-11-17 16:10] LABS: BASOPHILS # (AUTO) 0.1 K/uL (0.00-0.22); BASOPHILS % (AUTO) 1.2 % (0.0-2.0); HEMATOCRIT 46.8 % (36-48); HEMOGLOBIN 15.2 g/dL (12.0-16.0); LYMPHOCYTES # (AUTO) 0.4 K/uL (2.5-16.5); MEAN CORPUSCULAR HEMOGLOBIN 32 pg (27-31); MEAN CORPUSCULAR HGB CONC 33 g/dL (33-37); MEAN CORPUSCULAR VOLUME 99.8 fL (80-94); MONOCYTES # (AUTO) 0.2 K/uL (0.8-1.0); NEUTROPHILS # (AUTO) 6.7 K/uL (1.8-7.7); NEUTROPHILS % (AUTO) 90.7 % (42.2-75.2); PLATELET COUNT (AUTO) 163 K/uL (140-450); RED BLOOD CELL COUNT(AUTO) 4.69 MIL/uL (4.20-5.40); RED CELL DISTRIBUTION WIDTH 13.7 % (11.6-13.7); WHITE BLOOD COUNT (AUTO) 7.4 K/uL (4.8-10.8)
[2023-11-17 16:23] LABS: ANION GAP 12.6 (8-16); CALCIUM 8.3 mg/dL (8.5-10.1); CHLORIDE 105 mmol/L (98-107); CREATININE 0.9 mg/dL (0.6-1.3); GLUCOSE 160 mg/dL (74-106); POTASSIUM 4.6 mmol/L (3.5-5.1); SODIUM SERUM 141 mmol/L (136-145); UREA NITROGEN, BLOOD 24 mg/dL (7-18)
[2023-11-17 16:25] LABS: INR 1.07 (0.8-1.2); PROTHROMBIN TIME 11.2 secs (10.8-13.4)
[2023-11-17 16:32] LABS: LYMPHOCYTES % (AUTO) 5.1 % (20.5-51.1)
[2023-11-17 16:33] LABS: ALANINE AMINOTRANSFERASE 13 U/L (12-78); ALBUMIN 3.3 g/dL (3.4-5.0); ALKALINE PHOSPHATASE 95 U/L (50-136); ASPARTATE AMINOTRANSFERASE 16 U/L (15-37); BILIRUBIN,DIRECT 0.2 mg/dL (0.0-0.3); LIPASE 194 U/L (16-77); TOTAL BILIRUBIN 0.6 mg/dL (0.0-1.0); TOTAL PROTEIN, SERUM 7.6 g/dL (6.4-8.2)
[2023-11-17 16:49] LABS: MAGNESIUM 2.1 mg/dL (1.8-2.4); PHOSPHORUS 4.3 mg/dL (2.5-4.9)
[2023-11-17] MEDS ORDERED: ONDANSETRON 4 MG/2 ML VIAL ONE (17:19)
[2023-11-17] MEDS: ONDANSETRON 4 MG/2 ML VIAL IVP ONE (17:20)
[2023-11-17] MEDS: NACL 0.9% 1,000 ML IV ONE (17:21)
[2023-11-17] MEDS ORDERED: CEPH-588 PO (17:45)
[2023-11-17 17:47] LABS: APPEARANCE,URINE CLEAR (CLEAR); BILIRUBIN,URINE 2+ (NEGATIVE); BLOOD, URINE 2+ (NEGATIVE); COLOR,URINE YELLOW (YELLOW); LEUKOCYTE ESTERASE ,URINE 2+ (NEGATIVE); NITRITE, URINE POSITIVE (NEGATIVE); PROTEIN,URINE 2+ (NEGATIVE); UGLUCOSE NEGATIVE (NEGATIVE); UROBILINOGEN,URINE 0.2 EU/dL (0.2 - 1)
[2023-11-17 18:00] VITALS: BP 113/67; PULSE 104; RESP 17; TEMP 98.1; O2SAT 96
[2023-11-17 18:06] LABS: ICTOTEST NEGATIVE (NEGATIVE); RBC,URINE TOO NUMEROUS TO COUN /HPF (0-5)
[2023-11-17 18:07] LABS: BACTERIA,URINE >30 (MANY) /HPF (None Seen); MUCUS,URINE None Seen /LPF (None Seen); SQUAMOUS EPITHELIAL CELL,UR 0-3 (FEW) /LPF (0-3 (FEW)); TRICHOMONAS,URINE None Seen /HPF (None Seen); WBC,URINE TOO MANY TO COUNT /HPF (0-5); WHITE BLOOD CELL CASTS,URINE None Seen /LPF (None Seen); YEAST,URINE None Seen /HPF (None Seen)
== END 2023-11-17 18:00 | disposition home or self-care (01) ==
LOC: MED 14:59
DX: N39.0 Urinary tract infection, site not specified (principal); R11.10 Vomiting, unspecified; I25.2 Old myocardial infarction; E11.9 Type 2 diabetes mellitus without complications; I10 Essential (primary) hypertension; Z86.73 Personal history of transient ischemic attack (TIA), and cerebral infarction without residual deficits; Z79.899 Other long term (current) drug therapy; Z79.82 Long term (current) use of aspirin; Z88.5 Allergy status to narcotic agent
CPT/HCPCS: 36415; 71045; 80048; 80076; 81001; 83605; 83690; 83735; 84100; 84484; 85025; 85610; 85730; 87040; 87086; 93005; 96361; 96374; 99285; J2405; J7030; 87186

== ENCOUNTER 2024-01-22 13:14 | Inpatient (IN) | payer MEDICARE, OTHER ==
[~2024-01-22] VITALS: Ht 154.9 cm; Wt 86.2 kg
[~2024-01-22 13:14] MED LIST changes: +CEPH-588 PO
[2024-01-22 13:33] VITALS: BP 87/53; PULSE 114; RESP 17; TEMP 100; O2SAT 90
[2024-01-22 14:00] VITALS: O2SAT 98
[2024-01-22] MEDS ORDERED: cefTRIAXone 1,000 MG VIAL ONE (14:03)
[2024-01-22] MEDS: NACL 0.9% 2,000 ML IV ONE (14:11)
[2024-01-22 14:21] LABS: BASOPHILS # (AUTO) 0.1 K/uL (0.00-0.22); EOSINOPHILS # (AUTO) 0.1 K/uL (0-0.4); EOSINOPHILS % (AUTO) 0.8 % (0.0-4.0); HEMOGLOBIN 12.4 g/dL (12.0-16.0); LYMPHOCYTES # (AUTO) 1.6 K/uL (2.5-16.5); LYMPHOCYTES % (AUTO) 23.8 % (20.5-51.1); MEAN CORPUSCULAR HEMOGLOBIN 33 pg (27-31); MEAN CORPUSCULAR HGB CONC 33 g/dL (33-37); MEAN CORPUSCULAR VOLUME 99.3 fL (80-94); MONOCYTES # (AUTO) 0.5 K/uL (0.8-1.0); NEUTROPHILS # (AUTO) 4.4 K/uL (1.8-7.7); NEUTROPHILS % (AUTO) 66.4 % (42.2-75.2); PLATELET COUNT (AUTO) 163 K/uL (140-450); RED BLOOD CELL COUNT(AUTO) 3.82 MIL/uL (4.20-5.40); RED CELL DISTRIBUTION WIDTH 13.9 % (11.6-13.7); WHITE BLOOD COUNT (AUTO) 6.6 K/uL (4.8-10.8)
[2024-01-22 14:34] LABS: ANION GAP 11.9 (8-16); CALCIUM 8.5 mg/dL (8.5-10.1); CARBON DIOXIDE 30.3 mmol/L (21-32); CHLORIDE 100 mmol/L (98-107); CREATININE 1.2 mg/dL (0.6-1.3); GLUCOSE 158 mg/dL (74-106); POTASSIUM 4.2 mmol/L (3.5-5.1); SODIUM SERUM 138 mmol/L (136-145); UREA NITROGEN, BLOOD 48 mg/dL (7-18)
[2024-01-22 14:47] LABS: ALANINE AMINOTRANSFERASE 18 U/L (12-78); ALBUMIN 3.3 g/dL (3.4-5.0); ALKALINE PHOSPHATASE 69 U/L (50-136); ASPARTATE AMINOTRANSFERASE 17 U/L (15-37); BILIRUBIN,DIRECT 0.1 mg/dL (0.0-0.3); CREATINE KINASE, TOTAL 36 U/L (26-192); TOTAL BILIRUBIN 0.6 mg/dL (0.0-1.0); TOTAL PROTEIN, SERUM 7.3 g/dL (6.4-8.2)
[2024-01-22 14:58] LABS: LACTIC ACID 2.2 mmol/L (0.4-2.0)
[2024-01-22 15:02] LABS: BILIRUBIN,URINE NEGATIVE (NEGATIVE); BLOOD, URINE 2+ (NEGATIVE); LEUKOCYTE ESTERASE ,URINE 2+ (NEGATIVE); NITRITE, URINE POSITIVE (NEGATIVE); PROTEIN,URINE 1+ (NEGATIVE); UGLUCOSE NEGATIVE (NEGATIVE); UROBILINOGEN,URINE 0.2 EU/dL (0.2 - 1)
[2024-01-22 15:06] LABS: APPEARANCE,URINE CLOUDY (CLEAR); COLOR,URINE AMBER (YELLOW)
[2024-01-22 15:16] LABS: BACTERIA,URINE 10-30 (MOD) /HPF (None Seen); MUCUS,URINE 1+ /LPF (None Seen); RBC,URINE 11-20 (MOD) /HPF (0-5); SQUAMOUS EPITHELIAL CELL,UR 0-3 (FEW) /LPF (0-3 (FEW)); WBC,URINE 16-25 (MOD) /HPF (0-5)
[2024-01-22 16:25] VITALS: O2SAT 98
[2024-01-22] MEDS ORDERED: LISI2.5T14 PO (17:04)
[2024-01-22] MEDS ORDERED: ATOR40TA40 PO (17:04)
[2024-01-22] MEDS ORDERED: FERR-149 PO (17:04)
[2024-01-22] MEDS ORDERED: METF-1139 PO (17:04)
[2024-01-22] MEDS ORDERED: XAR10 PO (17:04)
[2024-01-22] MEDS ORDERED: KCL 20 MEQ IN 100 mL PREMIX 200 ML IV PRN (19:05)
[2024-01-22] MEDS ORDERED: LORazepam 1 MG TAB PO PRN (19:05)
[2024-01-22] MEDS ORDERED: ONDANSETRON 4 MG/2 ML VIAL IVP PRN (19:05)
[2024-01-22] MEDS ORDERED: ZOLPIDEM 5 MG TAB PO PRN (19:05)
[2024-01-22] MEDS ORDERED: HYDROcodone/APAP 5/325 MG 1 TAB TAB PO PRN (19:05)
[2024-01-22] MEDS ORDERED: MAGNESIUM OXIDE 400 MG TAB PO PRN (19:05)
[2024-01-22] MEDS ORDERED: ACETAMINOPHEN 325 MG TAB PO PRN (19:05)
[2024-01-22] MEDS: NACL 0.9% 1,000 ML IV SCH (19:24)
[2024-01-22 21:10] VITALS: BP 111/69; PULSE 73; RESP 18; TEMP 97.2; O2SAT 100
[2024-01-23] VITALS (7 sets, daily range): BP systolic 100–113; BP diastolic 59–72; PULSE 67–75; RESP 18; TEMP 96–97.2; O2SAT 67–100
[2024-01-23 07:00] LABS: BASOPHILS % (AUTO) 0.8 % (0.0-2.0); EOSINOPHILS # (AUTO) 0.1 K/uL (0-0.4); HEMATOCRIT 29.9 % (36-48); HEMOGLOBIN 9.9 g/dL (12.0-16.0); LYMPHOCYTES % (AUTO) 23.4 % (20.5-51.1); MEAN CORPUSCULAR HEMOGLOBIN 33 pg (27-31); MEAN CORPUSCULAR HGB CONC 33 g/dL (33-37); MONOCYTES # (AUTO) 0.3 K/uL (0.8-1.0); MONOCYTES % (AUTO) 7.7 % (1.7-9.3); NEUTROPHILS # (AUTO) 2.8 K/uL (1.8-7.7); NEUTROPHILS % (AUTO) 65.1 % (42.2-75.2); PLATELET COUNT (AUTO) 105 K/uL (140-450); RED BLOOD CELL COUNT(AUTO) 2.99 MIL/uL (4.20-5.40); RED CELL DISTRIBUTION WIDTH 13.6 % (11.6-13.7); WHITE BLOOD COUNT (AUTO) 4.3 K/uL (4.8-10.8)
[2024-01-23 07:21] LABS: ALANINE AMINOTRANSFERASE 14 U/L (12-78); ALBUMIN 2.6 g/dL (3.4-5.0); ALKALINE PHOSPHATASE 48 U/L (50-136); ANION GAP 7.5 (8-16); ASPARTATE AMINOTRANSFERASE 12 U/L (15-37); CALCIUM 7.4 mg/dL (8.5-10.1); CARBON DIOXIDE 31.9 mmol/L (21-32); CHLORIDE 104 mmol/L (98-107); CREATININE 0.7 mg/dL (0.6-1.3); GLUCOSE 111 mg/dL (74-106); POTASSIUM 3.4 mmol/L (3.5-5.1); SODIUM SERUM 140 mmol/L (136-145); TOTAL BILIRUBIN 0.5 mg/dL (0.0-1.0); TOTAL PROTEIN, SERUM 5.9 g/dL (6.4-8.2); UREA NITROGEN, BLOOD 30 mg/dL (7-18)
[2024-01-23] MEDS: DOCUSATE SODIUM 100 MG GELCAP PO SCH (09:00)
[2024-01-23] MEDS: POTASSIUM CHLORIDE 10 MEQ TABER PO PRN (09:14)
[2024-01-24 06:24] LABS: BASOPHILS % (AUTO) 0.7 % (0.0-2.0); EOSINOPHILS # (AUTO) 0.1 K/uL (0-0.4); EOSINOPHILS % (AUTO) 3.5 % (0.0-4.0); HEMATOCRIT 29.7 % (36-48); HEMOGLOBIN 9.9 g/dL (12.0-16.0); LYMPHOCYTES # (AUTO) 0.9 K/uL (2.5-16.5); LYMPHOCYTES % (AUTO) 24.5 % (20.5-51.1); MEAN CORPUSCULAR HEMOGLOBIN 33 pg (27-31); MEAN CORPUSCULAR HGB CONC 33 g/dL (33-37); MEAN CORPUSCULAR VOLUME 99.3 fL (80-94); MONOCYTES # (AUTO) 0.3 K/uL (0.8-1.0); MONOCYTES % (AUTO) 6.6 % (1.7-9.3); NEUTROPHILS # (AUTO) 2.5 K/uL (1.8-7.7); NEUTROPHILS % (AUTO) 64.7 % (42.2-75.2); PLATELET COUNT (AUTO) 107 K/uL (140-450); RED BLOOD CELL COUNT(AUTO) 2.99 MIL/uL (4.20-5.40); RED CELL DISTRIBUTION WIDTH 13.6 % (11.6-13.7); WHITE BLOOD COUNT (AUTO) 3.8 K/uL (4.8-10.8)
[2024-01-24 06:39] LABS: ALANINE AMINOTRANSFERASE 11 U/L (12-78); ALBUMIN 2.4 g/dL (3.4-5.0); ALKALINE PHOSPHATASE 56 U/L (50-136); ANION GAP 3.6 (8-16); ASPARTATE AMINOTRANSFERASE 15 U/L (15-37); CALCIUM 7.6 mg/dL (8.5-10.1); CARBON DIOXIDE 32.4 mmol/L (21-32); CHLORIDE 105 mmol/L (98-107); CREATININE 0.6 mg/dL (0.6-1.3); GLUCOSE 99 mg/dL (74-106); MAGNESIUM 1.9 mg/dL (1.8-2.4); SODIUM SERUM 137 mmol/L (136-145); TOTAL BILIRUBIN 0.4 mg/dL (0.0-1.0); TOTAL PROTEIN, SERUM 5.6 g/dL (6.4-8.2); UREA NITROGEN, BLOOD 19 mg/dL (7-18)
[2024-01-24 07:48] VITALS: O2SAT 100
[2024-01-24 08:00] VITALS: BP 112/61; PULSE 70; RESP 18; TEMP 96.9; O2SAT 98
[2024-01-24] MEDS ORDERED: CEPH-588 PO (12:56)
[2024-01-24 13:41] VITALS: BP 112/61; PULSE 70; RESP 18; TEMP 96.9
== END 2024-01-24 15:15 | disposition home or self-care (01) | DRG 871 ==
LOC: MED 13:14 → MTU 19:09
PROVIDERS: ADMIT Hospitalist; ATTEND Hospitalist
DX: A41.9 Sepsis, unspecified organism (principal); J96.01 Acute respiratory failure with hypoxia; N39.0 Urinary tract infection, site not specified; E44.0 Moderate protein-calorie malnutrition; E87.20 Acidosis, unspecified; N17.9 Acute kidney failure, unspecified; E11.22 Type 2 diabetes mellitus with diabetic chronic kidney disease; I12.9 Hypertensive chronic kidney disease with stage 1 through stage 4 chronic kidney disease, or unspecified chronic kidney disease; N18.9 Chronic kidney disease, unspecified; Z88.5 Allergy status to narcotic agent; Z79.899 Other long term (current) drug therapy; Z86.73 Personal history of transient ischemic attack (TIA), and cerebral infarction without residual deficits; I25.2 Old myocardial infarction; Z79.84 Long term (current) use of oral hypoglycemic drugs; Z68.35 Body mass index [BMI] 35.0-35.9, adult
CPT/HCPCS: 36415; 71045; 80048; 80053; 80076; 81001; 82550; 83605; 83735; 83880; 84484; 85025; 87040; 87081; 87086; 87186; 93005; 96365; 97110; 97163-GP; 99285; J0696; J1644; J7060